=== PATIENT | female | born 1945 | race Hispanic/Latino ===

== ENCOUNTER 2017-09-12 13:53 | Outpatient (RCR) | payer MEDICARE, OTHER ==
[~2017-09-12 13:53] MED LIST: ATORVASTATIN CA20 MG PO; B-122500 MCG; CELEBREX100 MG PO; CITALOPRAM HBR20 MG PO; DICYCLOMINE HCL20 MG PO; DONEPEZIL HCL5 MG PO; GABAPENTIN300 MG PO; NAPROXEN250 MG PO; OMEPRAZOLE20 M1; OMEPRAZOLE40 MG PO; VITAMIN B-121000 MCG PO; VITAMIN D1000 UNI1 PO; VOLTAREN100 GM TOP
== END 2017-09-19 ==
LOC: PT 13:53
PROVIDERS: ATTEND Neurological Surgery
DX: M50.320 Other cervical disc degeneration, mid-cervical region, unspecified level (principal); M62.81 Muscle weakness (generalized); M54.2 Cervicalgia; M53.82 Other specified dorsopathies, cervical region
CPT/HCPCS: 97010 ×3; 97110 ×4; 97140 ×2; 97161; G0283 ×2; G8984; G8985

== ENCOUNTER 2018-10-14 16:58 | Emergency (ER) | payer MEDICARE, OTHER ==
[~2018-10-14] VITALS: Ht 154.9 cm; Wt 72.6 kg
--- OUTSIDE RECORDS SUMMARY | 2018-10-14 17:00 | XMS REPORT | Continuity of Care Document ---
Author Author Yodio Organization Yodio Address Unknown Phone Unavailable Care Team Providers Care Button Maker Name Role Phone [facility] [employer] Unavailable Unavailable Problems No Data Provided for This Section Medications Medication Details Route Status Patient Instructions Ordering Provider Order Date Source Cyanocobalamin (Vitamin B-12) (B-12) 2,500 Mcg Tab.subl, Active 11/30/2015 [facility] Naproxen 250 Mg Tablet, 500 Mg Oral Every 4 Hours Active 11/30/2015 [facility] Omeprazole 20 Mg Tablet., 20 Active 11/30/2015 [facility] Celecoxib (Celebrex*) 100 Mg Capsule, 100 Mg Oral Twice A Day Active 05/27/2015 [facility] Atorvastatin Calcium 20 Mg Tablet Today At 9:00PM Active [facility] Cholecalciferol (Vitamin D3) (Vitamin D) 1,000 Unit Tablet Wkly Active [facility] Citalopram Hydrobromide (Citalopram Hbr) 20 Mg Tablet Daily Active [facility] Cyanocobalamin (Vitamin B-12) 1,000 Mcg Tab Daily Active [facility] Diclofenac Sodium (Voltaren) 100 Gm Gel..gram. As Needed Active THERAPEUTICALLY SUBSTITUTED WITH IBUPROFEN 600MG [facility] Dicyclomine Hcl 20 Mg Tablet Twice A Day Active [facility] Donepezil Hcl 5 Mg Tablet Bedtime Active [facility] Gabapentin 300 Mg Capsule Bedtime Active [facility] Omeprazole 40 Mg Capsule.dr Lord Active [facility] Allergies, Adverse Reactions, Alerts Substance Category Reaction Severity Reaction type Status Date Reported Comments Source Penicillin Unknown Allergy to Substance Active 11/30/2015 [facility] Codeine Unknown Allergy to Substance Active 11/30/2015 [facility] Tramadol Stomach complaints, lightheadedness Mild Allergy to Substance Active 11/30/2015 [facility] Memantine Hallucinations Intermediate Allergy to Substance Active 11/30/2015 [facility] Celecoxib Stomach complaints Mild Allergy to Substance Active 11/30/2015 [facility] Clindamycin Unknown Allergy to Substance Active 09/10/2016 [facility] Dicyclomine Unknown Allergy to Substance Active 09/10/2016 [facility] Immunizations No Data Provided for This Section Results No Data Provided for This Section Pathology Reports No Data Provided for This Section Diagnostic Reports No Data Provided for This Section Consultation Notes No Data Provided for This Section Discharge Summaries No Data Provided for This Section History and Physicals No Data Provided for This Section Vital Signs No Data Provided for This Section Encounters Location Location Details Encounter Type Encounter Number Reason For Visit Attending Provider ADM Date DC Date Status Source Discharged Recurring [id number] NICHOLAS SAHU MD 09/12/2017 09/19/2017 [facility] Procedures No Data Provided for This Section Assessment and Plan No Data Provided for This Section Plan of Care Plan of Care Date Source Prescriptions See Medication Section 09/20/2017 [facility] Social History Social History Date Source No social history information available. 09/20/2017 [facility] Family History No Data Provided for This Section Advance Directives Order Name Results Value Date Source Advance Directives Advance Directives Directive Response Recorded Date/Time Does the patient have an advance directive? No 08/02/08 4:00pm If yes, is advance directive on file with [facility]? No 11/30/15 9:42am If not on file with [facility] will patient provide a copy? No 06/25/16 3:44am Do you have a Directive to Physician? No 08/22/17 11:52am Do you have a Medical Power of Sample Grinder? No 08/22/17 11:52am Do you have an out of hospital Do Not Resuscitate Order? No 08/22/17 11:52am Do you have any special needs we should be aware of? No 08/22/17 11:52am Do you have a support person here with you today? Yes 08/22/17 11:52am Did patient receive Notice of Privacy Practices? No 08/22/17 11:52am Did patient receive patient rights and responsibilities? No 08/22/17 11:52am 09/20/2017 [facility] Functional Status No Data Provided for This Section
--- OUTSIDE RECORDS SUMMARY | 2018-10-14 17:01 | XMS REPORT | Summary of Care ---
Author Author Ashleigh Alves M.A. Unknown Address Unknown Phone Unavailable Care Team Providers Care Agriculture Extension Specialist Name Role Phone HUGO Guzman, APRIL Unavailable Unavailable HUNTER Guzman, SOLANGE ALMARAZ Unavailable Unavailable ARAONYARPITA N.P., EDDIE Unavailable Unavailable HUGO NELSON [place], APRIL Serna Unavailable Unavailable Unavailable Unavailable Functional Status Name Dates Details Functional status health issues are not documented Status: Name Dates Details Cognitive status health issues are not documented Status: Problems Name Dates Details Encounter for Medicare annual wellness exam (V70.0, Z00.00) Status: Active Abnormal antibody titer (795.79, R76.8) Status: Active Advance care planning (V65.49, Z71.89) Status: Active Arthralgia of shoulder region (719.41, M25.519) Status: Active At low risk for fall (V49.89, Z91.81) Status: Active Benign paroxysmal positional vertigo (386.11, H81.10) Status: Active Colon cancer screening (V76.51, Z12.11) Status: Active Degenerative tear of glenoid labrum of left shoulder (840.7, M24.112) Status: Active Diarrhea (787.91, R19.7) Status: Active Enterocolitis (558.9, K52.9) Status: Active Gastroesophageal reflux (530.81, K21.9) Status: Active 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, M15.9) Status: Active Grieving (309.0, F43.20) Status: Active Hematemesis/vomiting blood (578.0, K92.0) Status: Active Hyperlipidemia (272.4, E78.5) Status: Active IBS (irritable bowel syndrome) (564.1, K58.9) Status: Active Insomnia (780.52, G47.00) Status: Active Knee osteoarthritis (715.36, M17.10) Status: Active Left cervical radiculopathy (723.4, M54.12) Status: Active Long-term use of Plaquenil (V58.69, Z79.899) Status: Active Low back pain (724.2, M54.5) Status: Active Lumbar spondylosis (721.3, M47.816) Status: Active Melena (578.1, K92.1) Status: Active Metallic taste (781.1, R43.8) Status: Active Mild cognitive impairment (331.83, G31.84) Status: Active Myalgia (729.1, M79.1) Status: Active Acute pain of left knee (719.46, M25.562) Status: Active History of Caregiver burden (V61.49, Z63.6) Status: Resolved Immune thrombocytopenic purpura (287.31, D69.3) Status: Active Need for influenza vaccination (V04.81, Z23) Status: Active Need for pneumococcal vaccination (V03.82, Z23) Status: Active Nontraumatic tear of supraspinatus tendon, left (727.69, M75.102) Status: Active Osteoarthritis, hip, bilateral (715.95, M16.0) Status: Active Osteopenia (733.90, M85.80) Status: Active Other acute gastritis without hemorrhage (535.00, K29.00) Status: Active Polyarthritis (716.50, M13.0) Status: Active Post menopausal syndrome (627.9, N95.1) Status: Active Screening for breast cancer (V76.10, Z12.31) Status: Active Screening for osteoporosis (V82.81, Z13.820) Status: Active Sicca syndrome (710.2, M35.00) Status: Active Tingling (782.0, R20.2) Status: Active Unclassifiable eczema (692.9, L30.9) Status: Active 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, 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) Status: Active 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, 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: Active Viral syndrome (079.99, B34.9) Status: Active Vitamin D insufficiency (268.9, E55.9) Status: Active BMI 29.0-29.9,adult (V85.25, Z68.29) Status: Active Thrombocytopenia (287.5, D69.6) Status: Active Other pruritus (698.8, L29.8) Status: Active Major depressive disorder, recurrent, moderate (296.32, F33.1) Status: Active Venous insufficiency (459.81, I87.2) Status: Active Nausea and vomiting (787.01, R11.2) Status: Active Abdominal pain (789.00, R10.9) Status: Active Poor memory (780.93, R41.3) Status: Active Medications Name Dates Details Atorvastatin Calcium 20 MG Oral Tablet TAKE 1 TABLET AT BEDTIME. Quantity: 90 APRIL ARIAS M.D. * Start : 13-Jan-2014 Active B-12 2500 MCG Sublingual Tablet Sublingual PLACE 1 MCG TWICE WEEKLY (PER CUSTOMER SERVICE CASHIER) * Refills: 0 Active [place]-3 Fish Oil 1000 MG Oral Capsule TAKE 1 CAPSULE TWICE DAILY * Refills: 0 Active Gabapentin 300 MG Oral Capsule TAKE 2 CAPSULES BY MOUTH AT BEDTIMENEEDS OFFICE VISIT * Quantity: 180 Refills: 1 APRIL ARIAS M.D. * Start : 22-Dec-2014 Active Calcium 1000 + D 1000-800 MG-UNIT Oral Tablet TAKE 1 TABLET DAILY * Refills: 0 * Start : 14-Jul-2015 Active Donepezil HCl - 10 MG Oral Tablet TAKE 1 TABLET DAILY. * Refills: 0 * Start : 28-Oct-2015 Active Diclofenac Sodium 1 % Transdermal Gel Apply sparingly to affected area twice daily as needed for pain. * Quantity: 1 Refills: 2 SOLANGE HARRISON M.D. * Start : 28-Oct-2015 Active 100 GM Tube Omeprazole 40 MG Oral Capsule Delayed Release TAKE 1 CAPSULE Daily 30 min to 1hr before breakfast * Quantity: 30 Refills: 11 EDDIE KATE N.P. * Start : 20-Apr-2016 Active TiZANidine HCl - 2 MG Oral Capsule TAKE ONE CAPSULE BY MOUTH TWICE DAILY NEEDED NEEDED FOR MUSCLE SPASMS * Quantity: 60 Refills: 0 SOLANGE HARRISON M.D. * Start : 13-Mar-2017 Active Citalopram Hydrobromide 20 MG Oral Tablet TAKE 1 TABLET DAILY. * Quantity: 90 Refills: 1 HUGO Guzman APRIL * Start : 16-Jan-2017 Active Allergies and Adverse Reactions Name Dates Details CeleBREX CAPS (Allergy) Status: Active clindamycin (Allergy) Reaction: Diarrhea, Dizziness Status: Active Codeine Sulfate SOLN (Allergy) Status: Active dicyclomine (Allergy) Status: Active Namenda (Allergy) Reaction: Hallucinations Status: Active Penicillins (Allergy) Status: Active TraMADol HCl TABS (Allergy) Reaction: Diarrhea, Constipation, Itching Status: Active Past Medical History Name Dates Details History of Abnormal mammogram (793.80, R92.8) Status: Resolved History of Abnormal mammography (793.80, R92.8) Status: Resolved History of Blood pressure elevated without history of HTN (796.2, R03.0) Status: Resolved History of Chronic Tear Of Left Rotator Cuff Tendon (726.19) Status: Resolved History of hyperlipidemia (V12.29, Z86.39) Status: Resolved History of Major depressive disorder, single episode, mild (296.21, F32.0) Status: Resolved Procedures Procedure Dates Details [QLH] CBC (INCLUDES DIFF/PLT) Date: 29-Mar-2017 History of Open Treatment Of Ankle Dislocation With Fixation Completed Immunization Name Dates Details Tdap on: 31-Aug-2005 Pneumococcal polysaccharide vaccine, 23 valent on: 16-Sep-2010 Influenza Lot #: [id number] on: 28-Jan-2014 Fluzone High-Dose SUSP Lot #: [id number] on: 09-Dec-2014 Prevnar 13 Intramuscular Suspension Lot #: [id number] on: 22-Dec-2014 Fluzone Quadrivalent 0.5 ML Intramuscular Suspension Lot #: [id number] on: 04-Nov-2015 Pneumovax 23 25 MCG/0.5ML Injection Injectable Lot #: [id number] on: 07-Dec-2016 Fluzone Quadrivalent 0.5 ML Intramuscular Suspension Lot #: [id number] on: 07-Dec-2016 Family History Name Dates Details Family history of Hypertension (V17.49) Status: Active Social History Name Dates Details - Status: Name Dates Details Former smoker Never smoker Vital Signs Date Test Result Details [id number] BP Systolic 111 mm[Hg] Status: Comments: Location: [facility] [place]; Position: Sitting BP Diastolic 62 mm[Hg] Status: Comments: Location: LUE; Position: Sitting Height 61 in Status: Weight 157.3125 lb Status: Body Mass Index Calculated 29.72 kg/m2 Status: Body Surface Area Calculated 1.71 m2 Status: Temperature 96.9 f Status: Comments: Method: Temporal Heart Rate 54 /min Status: Comments: Location: L Brachial Artery; Respiration Rate 16 /min Status: Comments: Quality: Normal [id number]-[id number] BP Systolic 128 mm[Hg] Status: Comments: Location: LUE; Position: Sitting BP Diastolic 63 mm[Hg] Status: Comments: Location: LUE; Position: Sitting Height 61 in Status: Weight 157.375 lb Status: Body Mass Index Calculated 29.74 kg/m2 Status: Body Surface Area Calculated 1.71 m2 Status: Temperature 96.3 f Status: Comments: Method: Temporal Heart Rate 64 /min Status: Respiration Rate 16 /min Status: Results Date Description Value Details :20 [QLH] CBC (INCLUDES DIFF/PLT) WBC 5.4 {K/CMM} Range: 3.7-10.4 RBC 4.27 {M/CMM} Range: 4.20-5.40 Hgb 13.0 g/dl Range: 12.0-16.0 Hct 38.9 % Range: 36.0-48.0 MCV 91.0 fL Range: 80.0-98.0 MCH 30.5 pg Range: 27.0-31.0 MCHC 33.5 g/dl Range: 32.0-36.0 RDW 13.9 % Range: 11.5-14.5 Platelet 101 {K/CMM} (Below low threshold) Range: 133-450 Mean Platelet Volume 10.7 fL (Above high threshold) Range: 7.4-10.4 [id number] [QLH] Differential Segmented Neutrophils 54.8 % Range: 45.0-75.0 Monocytes 8.5 % Range: 2.0-12.0 Lymphocytes 33.6 % Range: 20.0-40.0 Eosinophils 1.8 % Range: 0.0-4.0 Basophils 1.3 % (Above high threshold) Range: 0.0-1.0 Segs-Bands # 2.9 {K/CMM} Range: 1.5-8.1 Lymphocytes # 1.8 {K/CMM} Range: 1.0-5.5 Monocytes # 0.5 {K/CMM} Range: 0.0-0.8 Eosinophils # 0.1 {K/CMM} Range: 0.0-0.5 Basophils # 0.1 {K/CMM} Range: 0.0-0.2 Plan of Care Name Dates Details Planned Observations Planned Goals not documented Planned Encounters Appointment; SOLANGE HARRISON M.D. On: 24-Jul-2017 15:00 Appointment; DONTE SINGH M.D. On: 25-Jul-2017 13:30 Interventions Provided Plan* Hold donepazil for 2 weeks and keep a symptom diary. * Resume donepazil after that, and continue symptom diary. * If this is determined to be contributing to her abdominal pain and nausea, she will discuss with neurologist Dr. Bishop if she has other options to help with her memory. * Follow up in 1 month. * Schedule AWV for May 2017. Instructions Name Dates Details Instructions not documented Encounters Appointment; APRIL ARIAS M.D. Encounter Diagnosis: Problem not documented On: 26-May-2015 8:30 Appointment; APRIL ARAIS M.D. Encounter Diagnosis: Problem not documented On: 18-Jun-2015 9:00 Appointment; SUNSHINE HANNA NP Encounter Diagnosis: Problem not documented On: 23-Jun-2015 11:30 Appointment; DONTE SINGH M.D. Encounter Diagnosis: Problem not documented On: 23-Jun-2015 15:30 Appointment; LAWRENCE DANIELSON M.D. Encounter Diagnosis: Problem not documented On: 14-Jul-2015 14:00 Appointment; DONTE SINGH M.D. Encounter Diagnosis: Problem not documented On: 23-Sep-2015 11:45 Appointment; MOLLY BARRON NP Encounter Diagnosis: Problem not documented On: 29-Sep-2015 11:00 Appointment; DONTE SINGH M.D. Encounter Diagnosis: Problem not documented On: 08-Oct-2015 13:45 Appointment; APRIL ARIAS M.D. Encounter Diagnosis: Problem not documented On: 14-Oct-2015 8:30 Appointment; LAWRENCE DANIELSON M.D. Encounter Diagnosis: Problem not documented On: 27-Oct-2015 13:30 Appointment; SOLANGE HARRISON M.D. Encounter Diagnosis: Problem not documented On: 28-Oct-2015 16:00 Appointment; APRIL ARIAS M.D. Encounter Diagnosis: Problem not documented On: 04-Nov-2015 9:15 Appointment; DONTE SINGH M.D. Encounter Diagnosis: Problem not documented On: 09-Nov-2015 13:45 Appointment; DONTE SINGH M.D. Encounter Diagnosis: Problem not documented On: 01-Dec-2015 13:45 Appointment; APRIL ARIAS M.D. Encounter Diagnosis: Problem not documented On: 08-Dec-2015 10:00 Appointment; DONTE SINGH M.D. Encounter Diagnosis: Problem not documented On: 21-Dec-2015 10:15 Appointment; KERRI CASTILLO M.D. Encounter Diagnosis: Problem not documented On: 23-Dec-2015 13:00 Appointment; DONTE SINGH M.D. Encounter Diagnosis: Problem not documented On: 18-Jan-2016 11:15 Appointment; SOLANGE HARRISON M.D. Encounter Diagnosis: Problem not documented On: 02-Mar-2016 15:00 Appointment; DONTE SINGH M.D. Encounter Diagnosis: Problem not documented On: 20-Apr-2016 10:15 Appointment; APRIL ARIAS M.D. Encounter Diagnosis: Problem not documented On: 24-May-2016 11:00 Appointment; VIRGIL POE M.D. Encounter Diagnosis: Problem not documented On: 14-Jun-2016 9:00 Appointment; SOLANGE HARRISON M.D. Encounter Diagnosis: Problem not documented On: 30-Jun-2016 14:00 Appointment; [facility] Encounter Diagnosis: Problem not documented On: 14-Jul-2016 9:00 Appointment; VIRGIL POE M.D. Encounter Diagnosis: Problem not documented On: 26-Jul-2016 9:00 Appointment; DONTE SINGH M.D. Encounter Diagnosis: Problem not documented On: 27-Jul-2016 10:15 Appointment; VASCULAR, [facility] Encounter Diagnosis: Problem not documented On: 20-Sep-2016 8:00 Appointment; VIRGIL POE M.D. Encounter Diagnosis: Problem not documented On: 20-Sep-2016 9:00 Appointment; VASCULAR, [facility] Encounter Diagnosis: Problem not documented On: 23-Sep-2016 10:30 Appointment; SOLANGE HARRISON M.D. Encounter Diagnosis: Problem not documented On: 28-Sep-2016 14:30 Appointment; VASCULAR, [facility] Encounter Diagnosis: Problem not documented On: 11-Oct-2016 9:00 Appointment; VIRGIL POE M.D. Encounter Diagnosis: Problem not documented On: 11-Oct-2016 9:15 Appointment; DONTE SINGH M.D. Encounter Diagnosis: Problem not documented On: 07-Nov-2016 11:45 Appointment; DONTE SINGH M.D. Encounter Diagnosis: Problem not documented On: 07-Nov-2016 11:45 Appointment; VASCULAR, [facility] Encounter Diagnosis: Problem not documented On: 16-Nov-2016 9:00 Appointment; VIRGIL POE M.D. Encounter Diagnosis: Problem not documented On: 06-Dec-2016 10:45 Appointment; APRIL ARIAS M.D. Encounter Diagnosis: Problem not documented On: 07-Dec-2016 11:45 Appointment; SOLANGE HARRISON M.D. Encounter Diagnosis: Problem not documented On: 27-Dec-2016 14:30 Appointment; APRIL ARIAS M.D. Encounter Diagnosis: Problem not documented On: 16-Jan-2017 15:30 Appointment; HAYLEE YIN LCSW Encounter Diagnosis: Problem not documented On: 23-Jan-2017 13:00 Appointment; APRIL ARIAS M.D. Encounter Diagnosis: Problem not documented On: 06-Feb-2017 15:00 Appointment; SOLANGE HARRISON M.D. Encounter Diagnosis: Problem not documented On: 27-Mar-2017 15:00 Appointment; SOBEIDA CHEUNG P.A. Encounter Diagnosis: Problem not documented On: 19-Apr-2017 10:30 Appointment; APRIL ARIAS M.D. Encounter Diagnosis: Problem not documented On: 08-May-2017 14:15
--- OUTSIDE RECORDS SUMMARY | 2018-10-14 17:01 | XMS REPORT ---
Author [facility] Address Unknown Phone Unavailable Care Team Providers Care Senior Relationship Manager Name Role Phone Unavailable Unavailable Payers Payer Name Policy Type Policy Number Effective Date Expiration Date Problems This patient has no known problems. Allergies, Adverse Reactions, Alerts Allergy Name Allergy Type Status Severity Reaction(s) Onset Date Inactive Date Treating Clinician Comments Penicillins DA Active U 2018-06-10 00:00:00 codeine DA Active U 2018-06-10 00:00:00 clindamycin DA Active U 2018-06-10 00:00:00 omeprazole DA Active U 2018-06-10 00:00:00 tramadol DA Active U 2018-06-10 00:00:00 dicyclomine DA Active U 2018-06-10 00:00:00 memantine DA Active U 2018-06-10 00:00:00 celecoxib DA Active U 2018-06-10 00:00:00 Penicillins DA Active U 2018-06-09 00:00:00 codeine DA Active U 2018-06-09 00:00:00 clindamycin DA Active U 2018-06-09 00:00:00 omeprazole DA Active U 2018-06-09 00:00:00 tramadol DA Active U 2018-06-09 00:00:00 dicyclomine DA Active U 2018-06-09 00:00:00 memantine DA Active U 2018-06-09 00:00:00 celecoxib DA Active U 2018-06-09 00:00:00 Penicillins DA Active U 2017-07-20 00:00:00 codeine DA Active U 2017-07-20 00:00:00 clindamycin DA Active U 2017-07-20 00:00:00 omeprazole DA Active U 2017-07-20 00:00:00 tramadol DA Active U 2017-07-20 00:00:00 dicyclomine DA Active U 2017-07-20 00:00:00 memantine DA Active U 2017-07-20 00:00:00 celecoxib DA Active U 2017-07-20 00:00:00 Medications This patient has no known medications. Encounters Start Date/Time End Date/Time Encounter Type Admission Type Attending [facility] Facility Care Department Encounter ID 2018-08-31 09:40:00 2018-08-31 09:40:00 Outpatient [id number] Results Test Description Test Time Test Comments Text Results Atomic Results Result Comments TROPONIN-I 2018-06-10 12:09:00 TROPONIN-I (test code=TROPI) <0.015 ng/mL 0-0.045 COMMENTS TO CURVE SAW OPERATOR: COLLECT 3 HOURS AFTER PREVIOUS [id number] 02:24:00* Test Item Value Reference Range Comments TROPONIN-I (test code=TROPI) <0.015 ng/mL 0-0.045 COMMENTS TO CURVE SAW OPERATOR: COLLECT 3 HOURS AFTER PREVIOUS SAMPLEBASIC METABOLIC [id number] 22:02:00* Test Item Value Reference Range Comments SODIUM (test code=NA) 142 mmol/L 136-145 POTASSIUM (test code=K) 3.4 mmol/L 3.5-5.1 CHLORIDE (test code=CL) 107.0 mmol/L 98-107 CARBON DIOXIDE (test code=CO2) 27.0 mmol/L 21-32 ANION GAP (test code=GAP) 11.4 10-20 GLUCOSE (test code=GLU) 99 mg/dL 74-106 BLOOD UREA NITROGEN (test code=BUN) 15 mg/dL 7-18 GLOMERULAR FILTRATION RATE (test code=GFR) > 60 mL/min >=60 Estimated GFR by using Modified MDRD formula.Chronic kidney disease is defined as either kidney damageor GFR <60 mL/min/1.73 m2 for >3 months. CREATININE (test code=CREAT) 0.70 mg/dL 0.55-1.02 Note change in reference range due to change in reagent. BUN/CREATININE RATIO (test code=BUN/CREA) 21.4 10-20 CALCIUM (test code=CA) 9.4 mg/dL 8.5-10.1 [id number] 22:02:00* Test Item Value Reference Range Comments TROPONIN-I (test code=TROPI) <0.015 ng/mL 0-0.045 CBC W/O [id number] 21:47:00* Test Item Value Reference Range Comments WHITE BLOOD CELL (test code=WBC) 6.8 K/mm3 4.5-12.5 RED BLOOD CELL (test code=RBC) 4.30 mill/mm3 3.7-5.2 HEMOGLOBIN (test code=HGB) 12.5 gram/dL 11.5-15.5 HEMATOCRIT (test code=HCT) 41.0 % 36.0-46.0 MEAN CELL VOLUME (test code=MCV) 95.3 fL 80-98 MEAN CELL HGB (test code=MCH) 29.1 picogram 27.0-33.0 MEAN CELL HGB CONCETRATION (test code=MCHC) 30.5 gram/dL 33.0-36.0 RED CELL DISTRIBUTION WIDTH (test code=RDW) 13.3 % 11.6-16.2 PLATELET COUNT (test code=PLT) 132 K/mm3 150-450 MEAN PLATELET VOLUME (test code=MPV) 12.1 fL 6.7-11.0 BASIC METABOLIC [id number] 21:44:00* Test Item Value Reference Range Comments SODIUM (test code=NA) 142 mmol/L 136-145 POTASSIUM (test code=K) 3.4 mmol/L 3.5-5.1 CHLORIDE (test code=CL) 107.0 mmol/L 98-107 CARBON DIOXIDE (test code=CO2) mmol/L 21-32 ANION GAP (test code=GAP) 10-20 GLUCOSE (test code=GLU) mg/dL 74-106 BLOOD UREA NITROGEN (test code=BUN) mg/dL 7-18 GLOMERULAR FILTRATION RATE (test code=GFR) mL/min >=60 CREATININE (test code=CREAT) mg/dL 0.55-1.02 BUN/CREATININE RATIO (test code=BUN/CREA) 10-20 CALCIUM (test code=CA) mg/dL 8.5-10.1 [id number] 21:44:00* Test Item Value Reference Range Comments TROPONIN-I (test code=TROPI) ng/mL 0-0.045 CBC W/O [id number] 21:41:00* Test Item Value Reference Range Comments WHITE BLOOD CELL (test code=WBC) K/mm3 4.5-12.5 RED BLOOD CELL (test code=RBC) mill/mm3 3.7-5.2 HEMOGLOBIN (test code=HGB) 12.5 gram/dL 11.5-15.5 HEMATOCRIT (test code=HCT) 41.0 % 36.0-46.0 MEAN CELL VOLUME (test code=MCV) fL 80-98 MEAN CELL HGB (test code=MCH) picogram 27.0-33.0 MEAN CELL HGB CONCETRATION (test code=MCHC) gram/dL 33.0-36.0 RED CELL DISTRIBUTION WIDTH (test code=RDW) % 11.6-16.2 PLATELET COUNT (test code=PLT) K/mm3 150-450 MEAN PLATELET VOLUME (test code=MPV) fL 6.7-11.0 - CT HEAD/BRAIN W/O [id number] 21:41:00 Name: HOSSEINSKY G [facility] : 1945 Age/S: 72 / F [address] [facility] Unit #: [id number] [place] [address] Phys: Saroj Casas MD Acct: [id number] Dis Date: Status: REG ER PHONE #: [phone] Exam Date: 06/09/2018 2130 FAX #: [phone] Reason: L arm numb, h/o ICH EXAMS: CPT CODE: [id number] CT HEAD/BRAIN W/O CONT 08982 HISTORY: Left arm numbness and prior hemorrhage. COMPARISON: July 20, 2017. CT brain without contrast: Automated exposure control. No acute intracranial bleeds or extra- axial collections are noted. No acute territorial vascular infarction is noted. 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 The sulci, gyri, ventricles and subarachnoid spaces and the basilar cisterns are normal for patient's age. No herniation or hydrocephalus or midline shift is noted. Mild periventricular ischemic gliosis is noted. Age-appropriate atrophy is no mj as well. Portions of the visualized paranasal sinuses are norm al. Craniotomy and craniectomy defect within the right frontal bon e.. IMPRESSION: No acute intracranial bleeds o r extra-axial collections. No acute territorial vascular infar ction. 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 No herniation or hydrocephalus or midline shift. Chronic white matter ischemic disease and atrophy . at 2141 Reported and signed by: Joe Coffey M.D. CC: Saroj Casas MD Technologist:Rodrick Dorsey RT(R)(CT) CTDI: DLP: Trnscb Date/Time: 06/09/2018 (2140) [email or web address] Orig Print D/T: S: 06/09/2018 (2144) C TDI: DLP: PAGE 1 Signed Report - XR CHEST 1 [id number] 21:33:00 FAX: Saroj Casas MD [phone] [place]: B St: REG Name: Mary DUKESKY [facility] : [birth year] Age/S: 72/F [address] [facility] Unit #: [id number] Loc: [place] [address] Phys: Saroj Casas MD Acct: [id number] Dis Date: Status: REG ER PHONE #: [phone] Exam Date: 06/09/20182127 FAX #: [phone] Reason: CHEST PAIN EXAMS: CPT CODE: [id number] XR CHEST 1 V 67546 HISTORY: Chest pain. COMPARISON: None available. No acute infiltrates, effusion or con gestion is noted. Bullous changes and scarring. The cardiac and mediastinal silhouette are within normal limits. IMPRESSIO N: No acute infiltrates, effusion or congestion. at 2133 Reported and signed by: Thomas Palma C: Saroj Casas MD Technologist: Josee Hurtado Trnscrd Date/Time/By: 06/09/2018 (2132) : By: [email or web address] Orig Print D/T: S: 06/09/2018 (2135) PAGE 1 Signed Report BASIC METABOLIC [id number] 15:07:00* Test Item Value Reference Range Comments SODIUM (test code=NA) 141 mmol/L 136-145 POTASSIUM (test code=K) 4.2 mmol/L 3.5-5.1 CHLORIDE (test code=CL) 106.0 mmol/L 98-107 CARBON DIOXIDE (test code=CO2) 28.0 mmol/L 21-32 ANION GAP (test code=GAP) 11.2 10-20 GLUCOSE (test code=GLU) 90 mg/dL 74-106 BLOOD UREA NITROGEN (test code=BUN) 9 mg/dL 7-18 GLOMERULAR FILTRATION RATE (test code=GFR) > 60 mL/min >=60 Estimated GFR by using Modified MDRD formula.Chronic kidney disease is defined as either kidney damageor GFR <60 mL/min/1.73 m2 for >3 months. CREATININE (test code=CREAT) 0.40 mg/dL 0.55-1.02 Note change in reference range due to change in reagent. BUN/CREATININE RATIO (test code=BUN/CREA) 20.0 10-20 CALCIUM (test code=CA) 9.0 mg/dL 8.5-10.1 HEPATIC FUNCTION [id number] 15:07:00* Test Item Value Reference Range Comments TOTAL PROTEIN (test code=PROT) 7.5 gram/dL 6.4-8.2 ALBUMIN (test code=ALB) 3.9 g/dL 3.4-5.0 GLOBULIN (test code=GLOB) 3.6 gram/dL 2.7-4.2 ALBUMIN/GLOBULIN RATIO (test code=A/G) 1.1 0.75-1.50 BILIRUBIN TOTAL (test code=BILT) 0.40 mg/dL 0.0-1.0 BILIRUBIN DIRECT (test code=BILD) 0.10 mg/dL 0.0-0.20 SGOT/AST (test code=AST) 18 IUnit/L 15-37 SGPT/ALT (test code=ALT) 14 IUnit/L 12-78 ALKALINE PHOSPHATASE TOTAL (test code=ALKP) 81 IUnit/L 45-117 Note change in reference range due to change in reagent. [id number] 15:07:00* Test Item Value Reference Range Comments LIPASE (test code=LIP) 133 U/L 73.0-393.0 [id number] 15:07:00* Test Item Value Reference Range Comments TROPONIN-I (test code=TROPI) <0.015 ng/mL 0-0.045 CBC W/O [id number] 15:04:00* Test Item Value Reference Range Comments WHITE BLOOD CELL (test code=WBC) 5.0 K/mm3 4.5-12.5 RED BLOOD CELL (test code=RBC) 4.47 mill/mm3 3.7-5.2 HEMOGLOBIN (test code=HGB) 13.3 gram/dL 11.5-15.5 HEMATOCRIT (test code=HCT) 41.6 % 36.0-46.0 MEAN CELL VOLUME (test code=MCV) 93.1 fL 80-98 MEAN CELL HGB (test code=MCH) 29.8 picogram 27.0-33.0 MEAN CELL HGB CONCETRATION (test code=MCHC) 32.0 gram/dL 33.0-36.0 RED CELL DISTRIBUTION WIDTH (test code=RDW) 13.3 % 11.6-16.2 PLATELET COUNT (test code=PLT) 115 K/mm3 150-450 MEAN PLATELET VOLUME (test code=MPV) 12.5 fL 6.7-11.0 BASIC METABOLIC [id number] 14:53:00* Test Item Value Reference Range Comments SODIUM (test code=NA) 141 mmol/L 136-145 POTASSIUM (test code=K) 4.2 mmol/L 3.5-5.1 CHLORIDE (test code=CL) 106.0 mmol/L 98-107 CARBON DIOXIDE (test code=CO2) mmol/L 21-32 ANION GAP (test code=GAP) 10-20 GLUCOSE (test code=GLU) mg/dL 74-106 BLOOD UREA NITROGEN (test code=BUN) mg/dL 7-18 GLOMERULAR FILTRATION RATE (test code=GFR) mL/min >=60 CREATININE (test code=CREAT) mg/dL 0.55-1.02 BUN/CREATININE RATIO (test code=BUN/CREA) 10-20 CALCIUM (test code=CA) mg/dL 8.5-10.1 HEPATIC FUNCTION [id number] 14:53:00* Test Item Value Reference Range Comments TOTAL PROTEIN (test code=PROT) gram/dL 6.4-8.2 ALBUMIN (test code=ALB) g/dL 3.4-5.0 GLOBULIN (test code=GLOB) gram/dL 2.7-4.2 ALBUMIN/GLOBULIN RATIO (test code=A/G) 0.75-1.50 BILIRUBIN TOTAL (test code=BILT) mg/dL 0.0-1.0 BILIRUBIN DIRECT (test code=BILD) mg/dL 0.0-0.20 SGOT/AST (test code=AST) IUnit/L 15-37 SGPT/ALT (test code=ALT) IUnit/L 12-78 ALKALINE PHOSPHATASE TOTAL (test code=ALKP) IUnit/L 45-117 [id number] 14:53:00* Test Item Value Reference Range Comments LIPASE (test code=LIP) U/L 73.0-393.0 [id number] 14:53:00* Test Item Value Reference Range Comments TROPONIN-I (test code=TROPI) ng/mL 0-0.045 URINALYSIS [id number] 14:25:00* Test Item Value Reference Range Comments UA COLOR (test code=COLU) YELLOW YELLOW UA APPEARANCE (test code=APPU) CLEAR CLEAR UA GLUCOSE DIPSTICK (test code=DGLUU) NEGATIVE mg/dL NEGATIVE UA BILIRUBIN DIPSTICK (test code=BILU) NEGATIVE mg/dL NEGATIVE UA KETONE DIPSTICK (test code=KETU) Negative mg/dL NEGATIVE UA SPECIFIC GRAVITY (test code=SGU) 1.020 1.001-1.035 UA BLOOD DIPSTICK (test code=DANIELLE) 1+ (Small) NEGATIVE UA PH DIPSTICK (test code=LIZ) 5.0 5.0-8.0 UA PROTEIN DIPSTICK (test code=PROU) Negative mg/dL NEGATIVE UA UROBILINIOGEN DIPSTICK (test code=URO) NEGATIVE mg/dL NEGATIVE UA NITRITE DIPSTICK (test code=HELENE) NEGATIVE NEGATIVE UA LEUKOCYTE ESTERASE W REFLEX (test code=LEUUR) TRACE NEGATIVE UA WBC (test code=WBCU) 0-5 #/HPF 0-5 UA RBC (test code=RBCU) 0-2 #/HPF 0-5 UA EPITHELIAL CELLS (test code=EPIU) FEW per HPF FEW UA HYALINE CAST (test code=HYALU) 0-2 #/LPF 0-5 UA MUCUS (test code=MUCU) FEW #/LPF FEW Urine Source? Clean CatchURINALYSIS [id number] 14:24:00* Test Item Value Reference Range Comments UA COLOR (test code=COLU) YELLOW YELLOW UA APPEARANCE (test code=APPU) CLEAR CLEAR UA GLUCOSE DIPSTICK (test code=DGLUU) NEGATIVE mg/dL NEGATIVE UA BILIRUBIN DIPSTICK (test code=BILU) NEGATIVE mg/dL NEGATIVE UA KETONE DIPSTICK (test code=KETU) Negative mg/dL NEGATIVE UA SPECIFIC GRAVITY (test code=SGU) 1.020 1.001-1.035 UA BLOOD DIPSTICK (test code=DANIELLE) 1+ (Small) NEGATIVE UA PH DIPSTICK (test code=LIZ) 5.0 5.0-8.0 UA PROTEIN DIPSTICK (test code=PROU) Negative mg/dL NEGATIVE UA UROBILINIOGEN DIPSTICK (test code=URO) NEGATIVE mg/dL NEGATIVE UA NITRITE DIPSTICK (test code=HELENE) NEGATIVE NEGATIVE UA LEUKOCYTE ESTERASE W REFLEX (test code=LEUUR) TRACE NEGATIVE UA WBC (test code=WBCU) 0-5 #/HPF 0-5 UA RBC (test code=RBCU) 0-2 #/HPF 0-5 UA EPITHELIAL CELLS (test code=EPIU) FEW per HPF FEW Urine Source? Clean CatchURINALYSIS [id number] 14:23:00* Test Item Value Reference Range Comments UA COLOR (test code=COLU) YELLOW YELLOW UA APPEARANCE (test code=APPU) CLEAR CLEAR UA GLUCOSE DIPSTICK (test code=DGLUU) NEGATIVE mg/dL NEGATIVE UA BILIRUBIN DIPSTICK (test code=BILU) NEGATIVE mg/dL NEGATIVE UA KETONE DIPSTICK (test code=KETU) Negative mg/dL NEGATIVE UA SPECIFIC GRAVITY (test code=SGU) 1.020 1.001-1.035 UA BLOOD DIPSTICK (test code=DANIELLE) 1+ (Small) NEGATIVE UA PH DIPSTICK (test code=LIZ) 5.0 5.0-8.0 UA PROTEIN DIPSTICK (test code=PROU) Negative mg/dL NEGATIVE UA UROBILINIOGEN DIPSTICK (test code=URO) NEGATIVE mg/dL NEGATIVE UA NITRITE DIPSTICK (test code=HELENE) NEGATIVE NEGATIVE UA LEUKOCYTE ESTERASE W REFLEX (test code=LEUUR) TRACE NEGATIVE UA WBC (test code=WBCU) per HPF 0-5 Urine Source? Clean Catch
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
== END 2018-10-14 18:40 | disposition home or self-care (01) ==
LOC: ER 16:58
DX: S16.1XXA Strain of muscle, fascia and tendon at neck level, initial encounter (principal); V49.59XA Passenger injured in collision with other motor vehicles in traffic accident, initial encounter; Y92.410 Unspecified street and highway as the place of occurrence of the external cause; M48.02 Spinal stenosis, cervical region; M51.34 Other intervertebral disc degeneration, thoracic region; R91.1 Solitary pulmonary nodule
CPT/HCPCS: 71046; 72125; 99283

== ENCOUNTER → 2019-03-27 | Outpatient (CLI) | payer MEDICARE ==
[~2019-03-27] MED LIST changes: +IOPAMIDOL 370 MG/ML 200 ML INFUS..BTL INJ ONE; +SODIUM CHLORIDE 0.9% 250ML 250 ML ONE
[2019-03-27 08:25] LABS: BLOOD UREA NITROGEN 5 mg/dL (7-26); BUN/CREATININE RATIO 11 (6-25); CREATININE, SERUM 0.44 mg/dL (0.57-1.11); EST GLOMERULAR FILTRATION RATE > 60 ML/MIN (60-)
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
== END ==
LOC: CT 07:04
PROVIDERS: ATTEND Urology
DX: R31.21 Asymptomatic microscopic hematuria (principal)
CPT/HCPCS: 36415; 74178; 82565; 84520; J7050; Q9967

== ENCOUNTER 2019-08-08 14:14 | Emergency (ER) | payer MEDICARE ==
[~2019-08-08] VITALS: Ht 154.9 cm; Wt 72.6 kg
[~2019-08-08 14:14] MED LIST changes: -IOPAMIDOL 370 MG/ML 200 ML INFUS..BTL INJ ONE; -SODIUM CHLORIDE 0.9% 250ML 250 ML ONE
--- NOTE | 2019-08-08 15:19 | Diagnostic Imaging Report ---
EXAMINATION: C SPINE 4-5 VIEW - HOPD INDICATION: Neck pain, left-sided numbness COMPARISON: None FINDINGS: No acute fracture. Alignment is anatomic. Vertebral body heights are maintained. Mild multilevel degenerative changes of the cervical spine with small osteophyte formation. Prevertebral soft tissues are normal in thickness. IMPRESSION: Minimal degenerative changes of the cervical spine. No acute injury. Signed by: Chelsea Romeo MD on 08/08/2019 3:16 PM
--- NOTE | 2019-08-08 15:20 | Diagnostic Imaging Report ---
CT BRAIN -[facility] HISTORY: Numbness from wrist COMPARISON: Report from head CT dated 05/27/2015 TECHNIQUE: Noncontrast axial scans were obtained from skull base to the vertex. Coronal and sagittal reconstructions obtained from the axial data. One or more of the following dose reduction techniques were used: Automated exposure control, adjustment of the mA and/or kV according to patient size, and/or utilization of iterative reconstruction technique. DISCUSSION: Scalp/Skull: Right pterional craniotomy changes are present. Right frontal patricia hole is also present. Brain sulci: Overall appropriate for patient's age. Ventricles: Normal in size and configuration. No hydrocephalus. 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 Associated streak artifacts obscure some details. Otherwise, no masses or fluid collections. Carotid siphon calcifications are present. Parenchyma: Focal encephalomalacia in the right superior frontal gyrus may be from remote infarct. Mild periventricular white matter hypodensities are likely chronic microvascular ischemic changes. Otherwise, no mass, hemorrhage, or large vascular territory acute infarct. Dural sinuses: No abnormal densities. Sellar/Suprasellar region: Otherwise, grossly unremarkable. Skull base: Intact. Incidental findings: Bilateral ocular lens replacement. IMPRESSION: 1. No acute intracranial abnormalities. 2. 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 3. Focal right superior frontal gyrus encephalomalacia may be from remote infarct or prior catheter tract. 4. Mild supratentorial chronic microvascular ischemic change. Signed by: Dr. Dmitri Nath M.D. on 08/08/2019 3:17 PM
--- NOTE | 2019-08-08 16:14 | Emergency Department Note ---
History of Present Illnes History of Present Illness Chief Complaint: Extremity Trauma/Pain History of Present Illness This is a 73 year old female c cc numbness left arm and neck pain, H/O brain aneurysm bleed . Historian: Patient Arrival Mode: Car Onset (how long ago): day(s) (3) Location: left arm Quality: numbness Radiation: Denies non-radiation, Denies back, Denies neck, Denies extremity, Denies abdomen, Denies periumbilical, Denies flank, Denies proximal, Denies distal, Denies other Severity: moderate Duration (how long): day(s) (2) Timing of current episode: constant Progression: waxing and waning Chronicity: new Context: Denies recent illness, Denies recent surgery, Denies recent immobilization, Denies recent travel, Denies trauma/injury, Denies new medications, Denies hx of DVT/PE, Denies non-compliance w/ medications, Denies other Relieving factors: none Exacerbating factors: none Associated symptoms: Reports denies other symptoms Treatments prior to arrival: none Past Medical/Family History Physician Review I have reviewed the patient's past medical and family history. Any updates have been documented here. Past Medical History Recent Fever: No Clinical Suspicion of Infectio: No New/Unexplained Change in Ment: No Past Medical History: TIA, GERD, Hyperlipedemia Other Medical History: Idiopathic Thrombocytopenic Purpura LOW PLATELET COUNT ARTHRITIS BRAIN ANEYURYSM Other Surgery: EGD & Colonoscopy BRAIN ANYEURYSM SURGERY RIGHT LEG SX DUE TO FRACTURE Social History Smoking Cessation: Never Smoker Counseling Performed: No Alcohol Use: None Any Illegal Drug Use: No TB Exposure/Symptoms: No Physically hurt or threatened: No Other Last Tetanus: Unknown Any Pre-Existing Lines (PICC,: No Is patient up to date on immun: Yes Last Flu: 2019 Last Pneumovax: 2019 Review of Systems Review of Systems Constitutional: Reports no symptoms EENTM: Reports no symptoms Cardiovascular: Reports no symptoms Respiratory: Reports no symptoms Gastrointestinal: Reports no symptoms Genitourinary: Reports no symptoms Musculoskeletal: Reports as per HPI Integumentary: Reports no symptoms Neurological: Reports no symptoms Psychological: Reports no symptoms Endocrine: Reports no symptoms Hematological/Lymphatic: Reports no symptoms Physical Exam Related Data Allergies: Coded Allergies: memantine (Verified Allergy, Intermediate, Hallucinations, 11/30/15) celecoxib (Verified Allergy, Mild, Stomach complaints, 11/30/15) tramadol (Verified Allergy, Mild, Stomach complaints, lightheadedness, 11/30/15) Penicillins (Verified Allergy, Unknown, 11/30/15) clindamycin (Verified Allergy, Unknown, 09/10/16) codeine (Verified Allergy, Unknown, 11/30/15) dicyclomine (Verified Allergy, Unknown, 09/10/16) Triage Vital Signs Vital Signs Date Time Temp Pulse Resp B/P (MAP) Pulse Ox O2 Delivery O2 Flow Rate FiO2 08/08/19 14:20 98.2 74 18 170/56 99 Vital signs reviewed: Yes Physical Exam CONSTITUTIONAL Constitutional: Present well-developed, Present well-nourished HENT HENT: Present normocephalic, Present atraumatic, Present oropharynx clear/moist, Present nose normal HENT L/R: Present left ext ear normal, Present right ext ear normal EYES Eyes: Reports PERRL, Reports conjunctivae normal NECK Neck: Present other (tenderness) PULMONARY Pulmonary: Present effort normal, Present breath sounds normal CARDIOVASCULAR Cardiovascular: Present regular rhythm, Present heart sounds normal, Present capillary refill normal, Present normal rate GASTROINTESTINAL Abdominal: Present soft, Present nontender, Present bowel sounds normal GENITOURINARY Genitourinary: Present exam deferred SKIN Skin: Present warm, Present dry MUSCULOSKELETAL Musculoskeletal: Present ROM normal NEUROLOGICAL Neurological: Present alert, Present oriented x 3, Present no gross motor or sensory deficits PSYCHOLOGICAL Psychological: Present mood/affect normal, Present judgement normal Results Imaging Imaging results reviewed: Yes Assessment & Plan Medical Decision Making MDM radiculopathy, neuropathy Reassessment Reassessment time: 16:13 Reassessment better Assessment & Plan Final Impression: (1) Radiculopathy, cervical region (2) Left arm numbness Depart Disposition: HOME, SELF-CARE Last Vital Signs Date Time Temp Pulse Resp B/P (MAP) Pulse Ox O2 Delivery O2 Flow Rate FiO2 08/08/19 14:20 98.2 74 18 170/56 99 Home Meds Reported Medications Cyanocobalamin (VITAMIN B-12) 1,000 Mcg Tab, 5000 MCG PO DAILY, #30 TAB 11/30/15 Donepezil Hcl (DONEPEZIL HCL) 5 Mg Tablet, 5 MG PO HS 11/30/15 Citalopram Hydrobromide (CITALOPRAM HBR) 20 Mg Tablet, 20 MG PO DAILY, TAB 11/30/15 Cholecalciferol (Vitamin D3) (VITAMIN D) 1,000 Unit Tablet, 36586 UNIT PO WKLY, #30 TAB 11/30/15 Dicyclomine Hcl (DICYCLOMINE HCL) 20 Mg Tablet, 20 MG PO BID, TAB 11/30/15 Diclofenac Sodium (VOLTAREN) 100 Gm Gel..gram., 1 UDPKT TOP PRN THERAPEUTICALLY SUBSTITUTED WITH IBUPROFEN 600MG 11/30/15 Omeprazole (OMEPRAZOLE) 40 Mg Capsule.dr, 40 MG PO DAILY 11/30/15 Atorvastatin Calcium (ATORVASTATIN CALCIUM) 20 Mg Tablet, 20 MG PO 2100, TAB 06/23/14 Gabapentin (GABAPENTIN) 300 Mg Capsule, 600 MG PO HS, #60 CAP 06/23/14 BAY ALSTON MD Aug 08, 2019 16:14
[2019-08-08] MEDS ORDERED: PREDNISONE20 MG PO (16:15)
== END 2019-08-08 16:55 | disposition home or self-care (01) ==
LOC: FSED 14:14
DX: R20.0 Anesthesia of skin (principal); M54.12 Radiculopathy, cervical region; D69.3 Immune thrombocytopenic purpura; E78.5 Hyperlipidemia, unspecified; K21.9 Gastro-esophageal reflux disease without esophagitis; Z86.73 Personal history of transient ischemic attack (TIA), and cerebral infarction without residual deficits
CPT/HCPCS: 70450; 72050; 99283

== ENCOUNTER 2020-01-24 15:16 | Observation (INO) | payer MEDICARE ==
[~2020-01-24] VITALS: Ht 152.4 cm; Wt 72.6 kg
[~2020-01-24 15:16] MED LIST changes: +PREDNISONE20 MG PO
--- NOTE | 2020-01-24 15:52 | Emergency Department Note ---
History of Present Illnes History of Present Illness Chief Complaint: Abdominal Complaints History of Present Illness This is a 74 year old female, with a history of hyperlipidemia, GERD, osteoarthritis, and brain aneurysm who presents for evaluation of epigastric pain radiating into the chest that started one half hours prior to arrival. Patient states that the pain was a tightness, and a 10 out of 10 in intensity. The pain did not radiate beyond her mid chest, and worsened with deep breathing. Patient had some associated nausea, but no vomiting, palpitations, dizziness or diaphoresis. Patient's last meal was this morning when she ate oatmeal and tea. She denies any history of previous similar pain. She also denies any history of cough, upper respiratory symptoms, fever, or chills. She has no history of heart disease, and the only family history of heart disease as her mother at age 93 of a heart attack. Patient does not smoke or drink alcohol. The pain lasted until after arrival to the ED, and on arrival it was artery improving down to a 2/10, without intervention. Historian: Patient Arrival Mode: Car [employer] Required: No Onset (how long ago): hour(s) (1.5) Location: epigastric and mid-chest Quality: tightness Radiation: Reports non-radiation Severity: severe Onset quality: sudden Duration (how long): hour(s) (1.5) Timing of current episode: constant Progression: resolved Chronicity: new Context: Denies recent illness, Denies trauma/injury Relieving factors: none Exacerbating factors: other (deep breathing seemed to make the pain worse) Associated symptoms: Denies cough, Denies fever/chills, Denies nausea/vomiting Treatments prior to arrival: none Risk factors: age, hyperlipidema Past Medical/Family History Physician Review I have reviewed the patient's past medical and family history. Any updates have been documented here. Past Medical History Recent Fever: No Clinical Suspicion of Infectio: No New/Unexplained Change in Ment: No Past Medical History: TIA, GERD, Hyperlipedemia Other Medical History: Idiopathic Thrombocytopenic Purpura LOW PLATELET COUNT ARTHRITIS BRAIN ANEYURYSM Other Surgery: EGD & Colonoscopy BRAIN ANYEURYSM SURGERY RIGHT LEG SX DUE TO FRACTURE Social History Smoking Cessation: Never Smoker Alcohol Use: None Any Illegal Drug Use: No TB Exposure/Symptoms: No Physically hurt or threatened: No Family History Family history of heart diseas: Yes (Mom, in her 90's.) Other Last Tetanus: Unknown Any Pre-Existing Lines (PICC,: No Review of Systems Review of Systems Constitutional: Denies chills, Denies fever EENTM: Denies nose congestion, Denies throat pain Cardiovascular: Reports chest pain; Denies edema, Denies palpitations Respiratory: Denies cough, Denies dyspnea, Denies dyspnea on exertion Gastrointestinal: Reports abdominal pain (epigastric); Denies diarrhea, Denies nausea, Denies vomiting Genitourinary: Denies dysuria, Denies frequency Musculoskeletal: Denies back pain, Denies neck pain Integumentary: Denies change in color, Denies rash Neurological: Denies headache, Denies tingling Psychological: Reports no symptoms Endocrine: Reports no symptoms Hematological/Lymphatic: Reports no symptoms Review of other systems: All other systems negative Physical Exam Related Data Allergies: Coded Allergies: memantine (Verified Allergy, Intermediate, Hallucinations, 11/30/15) celecoxib (Verified Allergy, Mild, Stomach complaints, 11/30/15) tramadol (Verified Allergy, Mild, Stomach complaints, lightheadedness, 11/30/15) Penicillins (Verified Allergy, Unknown, 11/30/15) clindamycin (Verified Allergy, Unknown, 09/10/16) codeine (Verified Allergy, Unknown, 11/30/15) dicyclomine (Verified Allergy, Unknown, 09/10/16) duloxetine (Verified Allergy, Unknown, 01/24/20) oxybutynin (Verified Allergy, Unknown, 01/24/20) Triage Vital Signs Vital Signs Date Time Temp Pulse Resp B/P (MAP) Pulse Ox O2 Delivery O2 Flow Rate FiO2 01/24/20 15:20 99.0 73 16 174/67 96 Room Air Vital signs reviewed: Yes Physical Exam CONSTITUTIONAL Constitutional: Present well-developed, Present well-nourished; Absent distressed, Absent ill appearing HENT HENT: Present normocephalic, Present atraumatic, Present oropharynx clear/moist, Present nose normal; Absent nasal congestion, Absent rhinorrhea HENT L/R: Present left ext ear normal, Present right ext ear normal EYES Eyes: Reports PERRL, Reports conjunctivae normal, Reports EOM normal NECK Neck: Present ROM normal, Present supple; Absent cervical adenopathy PULMONARY Pulmonary: Present effort normal, Present breath sounds normal CARDIOVASCULAR Cardiovascular: Present regular rhythm, Present heart sounds normal, Present capillary refill normal, Present normal rate; Absent murmur GASTROINTESTINAL Abdominal: Present soft, Present nontender, Present bowel sounds normal; Absent tender, Absent guarding GENITOURINARY Genitourinary: Present exam deferred SKIN Skin: Present warm, Present dry; Absent rash MUSCULOSKELETAL Musculoskeletal: Present ROM normal; Absent edema, Absent tenderness NEUROLOGICAL Neurological: Present alert, Present oriented x 3, Present no gross motor or sensory deficits; Absent cranial nerve deficit PSYCHOLOGICAL Psychological: Present mood/affect normal, Present judgement normal Results Laboratory Lab results reviewed: Yes Laboratory comments CBC - nl, except for plt = 105; [place] - nl except for Cr = 0.5; Liver panel - normal; Cardiacs - negative; D-dimer - not elevated; UA - neg., except for blo - small, ilsa - trace; Imaging Imaging results reviewed: Yes Impressions [place] [id number] Patient Name: ERNESTO CATALAN MR #: [id number] : 1945 Age/Sex: 74/F Req #: [id number] Adm Physician: Ordered by: MICHELLE CARVAJAL MD Report #: [id number] Location: [facility] Room/Bed: Procedure: [id number] HOPD/CXR 2 VIEW - HOPD Exam Date: 01/24/20 Exam Time: 1629 REPORT STATUS: Signed X-ray chest 2 views History: Chest pain Comparison: 10/14/2018 Findings: Central airways: Unremarkable. Heart: Normal size. Major vessels: Atherosclerotic aorta Mediastinal silhouettes: Unremarkable. Pleural spaces: No pleural effusion or pneumothorax. Lungs: No significant focal lung disease. The right lower lung zone nodule is visualized again and is unchanged. Skeletal structures: Unremarkable. Extrathoracic soft tissues: Unremarkable. Impression: No significant abnormality on this exam. Signed by: Gilmar Contreras MD on 01/24/2020 4:55 PM Dictated By: GILMAR CONTRERAS MD 54 Transcribed By: JAYLA on 01/24/201654 COPY TO: MICHELLE CARVAJAL MD~ Procedures 12 Lead ECG Interpretation ECG Interpretation : ECG: ECG 1 [employer]: Interpreted by ED physician Date: Jan 24, 2020 Time: 15:29 Prior ECG tracings: not available for review Rhythm: sinus rhythm Rate: normal BPM: 69 QRS axis: normal ST segments normal: Yes T waves normal: Yes Other findings: no other findings Clinical Impression: normal ECG Clinical Decision Tools HEART Score Date Taken: Jan 24, 2020 Time taken: 17:00 List risk factors Hyperlipidemia, TIA, Age HEART Score: HEART Score Response (Comments) Value History Moderately suspicious 1 EKG Normal 0 Age > or equal to 65 2 Risk factors 1 or 2 risk factors 1 Troponin < or = to normal limit Total 4 Assessment & Plan Medical Decision Making MDM - 74-year-old female, with a history of hyperlipidemia and TIA, who presents with epigastric pain radiating into her chest, that is more suspicious for a GI etiology; however, due to her risk factors and HEART score of 4, she is being admitted for observation, and further evaluation of her symptoms. Discussed with patient, and she is agreeable to admission. 17:50 - Case discussed with Dr. Raf Voss, who is agreeable to admitting patient to obs tele. Assessment & Plan Final Impression: (1) Chest pain (2) Hyperlipidemia (3) GERD (gastroesophageal reflux disease) (4) History of TIA (transient ischemic attack) Depart Disposition: ADMITTED Last Vital Signs Date Time Temp Pulse Resp B/P (MAP) Pulse Ox O2 Delivery O2 Flow Rate FiO2 01/24/20 15:20 99.0 73 16 174/67 96 Room Air Home Meds Reported Medications Cyanocobalamin (VITAMIN B-12) 1,000 Mcg Tab, 5000 MCG PO DAILY, #30 TAB 11/30/15 Donepezil Hcl (DONEPEZIL HCL) 5 Mg Tablet, 5 MG PO HS 11/30/15 Citalopram Hydrobromide (CITALOPRAM HBR) 20 Mg Tablet, 20 MG PO DAILY, TAB 11/30/15 Cholecalciferol (Vitamin D3) (VITAMIN D) 1,000 Unit Tablet, 80432 UNIT PO WKLY, #30 TAB 11/30/15 Diclofenac Sodium (VOLTAREN) 100 Gm Gel..gram., 1 UDPKT TOP PRN THERAPEUTICALLY SUBSTITUTED WITH IBUPROFEN 600MG 11/30/15 Omeprazole (OMEPRAZOLE) 40 Mg Capsule.dr, 40 MG PO DAILY 11/30/15 Atorvastatin Calcium (ATORVASTATIN CALCIUM) 20 Mg Tablet, 20 MG PO 2100, TAB 06/23/14 Gabapentin (GABAPENTIN) 300 Mg Capsule, 600 MG PO HS, #60 CAP 06/23/14 Discontinued Reported Medications Dicyclomine Hcl (DICYCLOMINE HCL) 20 Mg Tablet, 20 MG PO BID, TAB 11/30/15 Discontinued Scripts Prednisone (PREDNISONE) 20 Mg Tab, 20 MG PO DAILY, #6 TAB Prov:BAY ALSTON MD 08/08/19 MICHELLE CARVAJAL MD Jan 24, 2020 15:52
--- OUTSIDE RECORDS SUMMARY | 2020-01-24 16:30 | XMS REPORT | Continuity of Care Document ---
Author Author [facility] t Organization [facility] Address [address] [place] [address] Phone Unavailable Care Team Providers Care Fertilizer Supervisor Name Role Phone HUGO NELSON MD S (NS) MATILDE PCP [phone] SOLANGE HARRISON M.D. Attphys UnavailMATILDE Ortega M.D. Attphys Unavailable COLTON YORK M.D. Attphys Unavailabl BAY Diaz Attphys Unavailable DONTE SINGH PA Attphys Unavailable HAMPEL, YADIEL Attphys Unavailable MONICA ROSAS D.O. Attphys Unavailable LEXIE WILSON M.D. Attphys Unavailable VASCULAR, SE Attphys Unavailable Felisha LOMBARDO Attphys Unavailable SOBEIDA CHEUNG P.A. Attphys Unavailable BALTAZAR JO P.A. Attphys Unavailable DONTE SINGH M.D. Attphys Unavailable RODNEY MONTENEGRO P.A. Attphys Unavailable HAYLEE YIN Attphys Unavailable VIRGIL POE M.D. Attphys Unavailable VASCULAR, [place] Attphys Unavailable [place]-MS, ECHO Attphys Unavailable KERRI CASTILLO M.D. Attphys Unavailable LAWRENCE DANIELSON M.D. Attphys Unavailable MOLLY BARRON NP Attphys Unavailable SUNSHINE HANNA NP Attphys Unavailable KACIE MAGDALENO M.D. Attphys Unavailable Payers Payer Name Policy Type Policy Number Effective Date Expiration Date Daphne Diaz Medicare [id number] 2017 00:00:00 [facility] Medicare A & B [id number] [facility] [employer] [facility] Care [id number] [facility] Problems Condition Name Condition Details Condition Category Status Onset Date Resolution Date Last Treatment Date Treating Clinician Comments Source Cervical radiculopathy Problem Active [facility] Left upper extremity numbness Problem Active [facility] History of Chronic Tear Of Left Rotator Cuff Tendon Hi story of Chronic Tear Of Left Rotator Cuff Tendon Problem Resolved [facility] History of abdominal pain History of abdominal pain Problem Resolved [facility] History of Abnormal mammography History of Abnormal mammography Problem Resolved [facility] History of melena History of melena Problem Resolved [facility] History of hyperlipidemia History of hyperlipidemia Problem Resolved [facility] History of Long-term use of Plaquenil History of Long-term u se of Plaquenil Problem Resolved [facility] History of Major depressive disorder, single episode, mild History of Major depressive disorder, single episode, mild Problem Resolved [facility] History of Metallic taste History of Metallic taste Problem Resolved [facility] History of Other acute gastritis without hemorrhage Hi story of Other acute gastritis without hemorrhage Problem Resolved [facility] Encounter for screening mammogram for breast cancer En counter for screening mammogram for breast cancer Problem Active [facility] Hyperglycemia Hyperglycemia Problem Active [facility] Allergic rhinitis, seasonal Allergic rhinitis, seasonal Problem Active [facility] Arthralgia of shoulder region Arthralgia of shoulder region Problem Active [facility] BMI 29.0-29.9,adult BMI 29.0-29.9,adult Problem Active [facility] Degenerative tear of glenoid labrum of left shoulder D egenerative tear of glenoid labrum of left shoulder Problem Active [facility] Generalized osteoarthritis of multiple sites Generaliz ed osteoarthritis of multiple sites Problem Active [facility] Insomnia Ins[facility] Nontraumatic tear of supraspinatus tendon, left Nontra umatic tear of supraspinatus tendon, left Problem Active [facility] Osteoarthritis, hip, bilateral Osteoarthritis, hip, bilateral Problem Active [facility] Osteopenia of multiple sites Osteopenia of multiple sites Problem Active [facility] Pharyngoesophageal dysphagia Pharyngoesophageal dysphagia Problem Active [facility] Sicca syndrome Sicca syndrome Problem Active [facility] Unclassifiable eczema Unclassifiable eczema Problem Active [facility] Vitamin D insufficiency Vitamin D insufficiency Problem Active [facility] Pain in both lower extremities Pain in both lower extremities Problem Active [facility] PAOD (peripheral arterial occlusive disease) PAOD (per ipheral arterial occlusive disease) Problem Active [facility] Cervicalgia Cervicalgia Problem Active [facility] Pain of left upper extremity Pain of left upper extremity Problem Active [facility] Mild cognitive impairment Mild cognitive impairment Problem Active [facility] Screening for breast cancer Screening for breast cancer Problem Active [facility] Aneurysm Aneurysm Problem Active [facility] Chronic venous insufficiency Chronic venous insufficiency Problem Active [facility] Cataract Cataract [facility] Hyperlipidemia Hyperlipidemia Problem Active [facility] IBS (irritable bowel syndrome) IBS (irritable bowel syndrome) Problem Active [facility] Varicose veins with complications Varicose veins with complicati ons Problem Active [facility] Gastroesophageal reflux Gastroesophageal reflux Problem Active [facility] Major depressive disorder, recurrent, moderate Major d epressive disorder, recurrent, moderate Problem Active [facility] Lumbar spondylosis Lumbar spondylosis Problem Active [facility] Knee osteoarthritis Knee osteoarthritis Problem Active [facility] Benign paroxysmal positional vertigo Benign paroxysmal posit ional vertigo Problem Active [facility] Chronic ITP (idiopathic thrombocytopenia) Chronic ITP (idiopathic thrombocytopenia) Problem Active [facility] Rectal bleeding Rectal bleeding Problem Active [facility] Inflamed acrochordon Inflamed acrochordon Problem Active [facility] GENE positive GENE positive Problem Active [facility] Rib pain on right side Rib pain on right side Problem Active [facility] Pain in scapula Pain in scapula Problem Active [facility] Hyperlipidemia Hype rlipidemia Active 06/25/2013 [facility] Problem Active 2013-06-25 14:20:08 M serina Junior Benign Paroxysmal Positional Vertigo Benign Paroxysmal Positional Vertigo Active 06/25/2013 [facility] Problem Active 2013-06-25 14:20:08 Yasmany Junior Tingling (Paresthesia) Ting ling (Paresthesia) Active 06/25/2013 [facility] Problem Active 2013-06-25 14:20:08 Yasmany Junior Insomnia Inso mnia Active 06/25/2013 [facility] Problem Active 2013-06-25 14:20:08 Yasmany Junior Thrombophlebitis Of Superficial Vessels Of The Lower E xtremity Thrombophlebitis Of Superficial Vessels Of The Lower Extremity Active 06/25/2013 [facility] Problem Active 2013-06-25 14:20:08 Yasmany Junior Thrombocytopenia Thro mbocytopenia Active 06/25/2013 [facility] Problem Active 2013-06-25 14:20:08 M emoriquynh Junior Arthralgia Of The Shoulder Region Arthralgia Of The Shoulder Region Active 06/25/2013 [facility] Problem Active 2013-06-25 14:20:08 Yasmany Junior Allergies, Adverse Reactions, Alerts Allergy Name Allergy Type Status Severity Reaction(s) Onset Date Inacti ve Date Treating Clinician Comments Source Penicillins DA Active U 2018-06-10 00:00:00 [facility] codeine DA Active U 2018-06-10 00:00:00 [facility] clindamycin DA Active U 2018-06-10 00:00:00 [facility] omeprazole DA Active U 2018-06-10 00:00:00 [facility] tramadol DA Active U 2018-06-10 00:00:00 [facility] dicyclomine DA Active U 2018-06-10 00:00:00 [facility] memantine DA Active U 2018-06-10 00:00:00 [facility] celecoxib DA Active U 2018-06-10 00:00:00 [facility] Penicillins DA Active U 2018-06-09 00:00:00 [facility] codeine DA Active U 2018-06-09 00:00:00 [facility] clindamycin DA Active U 2018-06-09 00:00:00 [facility] omeprazole DA Active U 2018-06-09 00:00:00 [facility] tramadol DA Active U 2018-06-09 00:00:00 [facility] dicyclomine DA Active U 2018-06-09 00:00:00 [facility] memantine DA Active U 2018-06-09 00:00:00 [facility] celecoxib DA Active U 2018-06-09 00:00:00 [facility] Penicillins DA Active U 2017-07-20 00:00:00 [facility] codeine DA Active U 2017-07-20 00:00:00 [facility] clindamycin DA Active U 2017-07-20 00:00:00 [facility] omeprazole DA Active U 2017-07-20 00:00:00 [facility] tramadol DA Active U 2017-07-20 00:00:00 [facility] dicyclomine DA Active U 2017-07-20 00:00:00 [facility] memantine DA Active U 2017-07-20 00:00:00 [facility] celecoxib DA Active U 2017-07-20 00:00:00 [facility] Clindamycin Allergy to substance Active 2016-09-10 00:00:00 [facility] Dicyclomine Allergy to substance Active 2016-09-10 00:00:00 [facility] Codeine Allergy to substance Active 2015-11-30 00:00:00 [facility] Tramadol Allergy to substance Active Mild Stomach complai nts, lightheadedness 2015-11-30 00:00:00 [facility] Memantine Allergy to substance Active Moderate Hallucinations 2015-11-30 00:00:00 [facility] Celecoxib Allergy to substance Active Mild Stomach complai nts 2015-11-30 00:00:00 [facility] Penicillin Allergy to substance Active 2015-11-30 00:00:00 [facility] CeleBREX CAPS Allergy to drug (finding) Active [facility] Penicillins Allergy to drug (finding) Active [facility] traMADol HCl TABS Allergy to drug (finding) Active Diarrhea, Constipation, Itching [facility] Codeine Sulfate SOLN Allergy to drug (finding) Active [facility] clindamycin Allergy to drug (finding) Active Diarrhea, Dizziness [facility] dicyclomine Allergy to drug (finding) Active [facility] duloxetine Allergy to drug (finding) Active [facility] Namenda Allergy to drug (finding) Active Hallucinations [facility] oxybutynin Allergy to drug (finding) Active [facility] Codeine Sulfate SOLN Codeine Sulfate SOLN Active [facility] Penicillins Penicillins Active [facility] Family History Family Member Diagnosis Comments Start Date Stop Date Source Mother Family history of Hypertension [facility] Unknown Family Member Family History 2012-09-25 10:17:43 2 10:17:43 [facility] Social History Social Habit Start Date Stop Date Quantity Comments Source Social History 2013-06-25 14:20:08 2013-06-25 14:20:08 [facility] Sex Assigned At 1945 00:00:00 1945 00:00:00 [facility] Smoking Status Start Date Stop Date Source [facility] smoked tobacco (finding[facility] Medications Ordered Medication Name Filled Medication Name Start Date Stop Da te Current Medication? Ordering Clinician Indication Dosage Frequency Signature (SIG) Comments Components Source tiZANidine HCl - 2 MG Oral Capsule tiZANidine HCl - 2 MG Ora l Capsule 2019-12-06 00:00:00 Yes SOLANGE HARRISON M.D. 1 TAKE 1 CAPSULE Bedtime PRN muscle pain [facility] Prednisone Prednisone 2019-08-08 16:15:00 Yes 20 Bernice ly [facility] Gabapentin 300 MG Oral Capsule Gabapentin 300 MG Oral Capsul e 2018-04-09 00:00:00 Yes MATILDE ARIAS M.D. 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 Apply 4g t o affected area twice daily as needed for pain. [facility] Calcium 1000 + D 1000-800 MG-UNIT Oral Tablet Calcium 1000 + D 1000-800 MG-UNIT Oral Tablet 2015-07-14 00:00:00 Yes 1 QD TAKE 1 TABLE T DAILY [facility] Atorvastatin Calcium 20 MG Oral Tablet Atorvastatin Calcium 20 MG Oral Tablet 2014-01-13 00:00:00 Yes MATILDE ARIAS M.D. 1 QD TAKE 1 TABLET BY MOUTH DAILY [facility] B-12 2500 MCG Sublingual Tablet Sublingual 2013-06-25 14:20:08 Yes (Active) [facility] Cyclobenzaprine HCl 5 MG Oral Tablet 2013-06-25 05:00:00 Ye s ; Start Date: 06/25/2013 (Active) Yasmany Hamiltona nn Meloxicam 7.5 MG Oral Tablet 2013-05-06 05:00:00 Yes ; Start Date: 05/06/2013; End Date: (Active) Yasmany Hamiltonann Gabapentin 100 MG Oral Capsule 2013-04-09 06:00:00 Yes ; Start Date: 04/09/2013 (Active) Yasmany Hamiltonann Fish Oil CAPS 2013-01-08 19:17:42 Yes (Acti ve) [facility] Calcium + D TABS 2013-01-08 19:17:42 Yes (A ctive) Yasmany Hamiltonann Atorvastatin Calcium 10 MG Oral Tablet 2012-11-26 22:16:38 Yes (Active) [facility] Amitriptyline HCl 25 MG Oral Tablet 2012-09-24 05:00:00 Yes ; Start Date: 09/24/2012; End Date: (Active) [facility] Claritin 10 MG Oral Tablet 2012-09-24 05:00:00 Yes ; Start Date: 09/24/2012 (Active) [facility] Atorvastatin Calcium 20 MG Oral Tablet Yes ; Start Date: ; End Date: (Active) [facility] Atorvastatin Calcium Atorvastatin Calcium Yes 20 Today At 9:00PM [facility] Cholecalciferol (Vitamin D3) (Vitamin D) 1,000 Unit TA BLET Cholecalciferol (Vitamin D3) (Vitamin D) 1,000 Unit TABLET Yes [id number] Wkly [facility] Citalopram Hydrobromide (Citalopram Hbr) 20 Mg TABLET Citalopram Hydrobromide (Citalopram Hbr) 20 Mg TABLET Yes 20 Daily [facility] Cyanocobalamin (Vitamin B-12) 1,000 Mcg TAB Cyanocobal cross (Vitamin B-12) 1,000 Mcg TAB Yes 5000 Daily [facility] Diclofenac Sodium (Voltaren) 100 Gm GEL..GRAM. Diclofe nac Sodium (Voltaren) 100 Gm GEL..GRAM. Yes 1 As Needed [facility] Dicyclomine Hcl Dicyclomine Hcl Yes 20 Twice A Day [facility] Donepezil Hcl Donepezil Hcl Yes 5 Bedtime [facility] Gabapentin Gabapentin Yes 600 Bedtime [facility] Omeprazole Omeprazole Yes 40 Daily [facility] B-12 5000 MCG Sublingual Tablet Sublingual B-12 5000 M CG Sublingual Tablet Sublingual Yes 1 tablet twice weekly [facility] HM Vitamin D3 50 MCG (2000 UT) Oral Capsule HM Vitamin D3 50 MCG (2000 UT) Oral Capsule Yes TAKE 1 SOFTGEL DAILY [facility] [place]-3 Fish Oil 1000 MG Oral Capsule [place]-3 Fish Oil 1000 MG Oral Capsule Yes 1 Q0.5D TAKE 1 CAPSULE TWICE DAILY [facility] Cyanocobalamin (Vitamin B-12) (B-12) 2,500 Mcg TAB.SUB L Cyanocobalamin (Vitamin B-12) (B-12) 2,500 Mcg TAB.SUBL 2015-11-30 00:00:00 No [facility] Naproxen Naproxen 2015-11-30 00:00:00 No 500 Every 4 Hours [facility] Omeprazole Omeprazole 2015-11-30 00:00:00 No 20 [facility] Celecoxib (Celebrex*) 100 Mg CAPSULE Celecoxib (Celebrex*) 100 M g CAPSULE 2015-05-27 00:00:00 No 100 Twice A Day [facility] Immunizations Ordered Immunization Name Filled Immunization Name Date Status Comments Source Shingrix 50 MCG Intramuscular Suspension Reconstituted 2018-07-08 00:00:00 Completed [facility] Shingrix 50 MCG Intramuscular Suspension Reconstituted 2018-05-09 00:00:00 Completed [facility] Fluzone High-Dose 0.5 ML Intramuscular Suspension Prefilled Syringe 2017-10-25 11:19:00 Completed [facility] Fluzone Quadrivalent 0.5 ML Intramuscular Suspension 2016-12-07 12:25:00 Completed [facility] Pneumovax 23 25 MCG/0.5ML Injection Injectable 2016-11 12:24:00 Completed [facility] Fluzone Quadrivalent 0.5 ML Intramuscular Suspension 2015-11-04 09:59:00 Completed [facility] Prevnar 13 Intramuscular Suspension 2014-12-22 11:15:00 Co mpleted [facility] Fluzone High-Dose SUSP 2014-12-09 10:43:00 Completed [facility] Influenza 2014-01-28 10:41:00 Completed [facility] Pneumococcal polysaccharide vaccine, 23 valent 2010-08 00:00:00 Completed [facility] Tdap 2005-08-31 00:00:00 Completed [facility] Vital Signs Vital Name Observation Time Observation Value Comments Source Systolic blood pressure 2019-12-06 10:50:00 133 mm[Hg] Loca tion: LUE; Position: Sitting [facility] Diastolic blood pressure 2019-12-06 10:50:00 68 mm[Hg] Loc ation: LUE; Position: Sitting [facility] Body height 2019-12-06 10:50:00 61 [in_us] [facility] Weight 2019-12-06 10:50:00 146 [lb_av] [facility] Body mass index (BMI) [Ratio] 2019-12-06 10:50:00 27.59 kg/m2 [facility] Body temperature 2019-12-06 10:50:00 96.8 [degF] Method: Temporal [facility] Heart Rate 2019-12-06 10:50:00 65 /min [facility] Systolic blood pressure 2019-10-25 13:54:00 119 mm[Hg] [facility] Diastolic blood pressure 2019-10-25 13:54:00 62 mm[Hg] [facility] Body height 2019-10-25 13:54:00 61 [in_us] [facility] Weight 2019-10-25 13:54:00 146 [lb_av] [facility] Body mass index (BMI) [Ratio] 2019-10-25 13:54:00 27.59 kg/m2 [facility] Body temperature 2019-10-25 13:54:00 97.9 [degF] [facility] Heart Rate 2019-10-25 13:54:00 65 /min [facility] Respiratory rate 2019-10-25 13:54:00 16 /min [facility] Weight 2019-08-08 14:20:00 160 [lb_av] [facility] BMI (Body Mass Index) 2019-08-08 14:20:00 30.2 kg/m2 [facility] Systolic blood pressure 2019-07-29 14:49:00 144 mm[Hg] [facility] Diastolic blood pressure 2019-07-29 14:49:00 69 mm[Hg] [facility] Body height 2019-07-29 14:49:00 61 [in_us] [facility] Weight 2019-07-29 14:49:00 146 [lb_av] [facility] Body mass index (BMI) [Ratio] 2019-07-29 14:49:00 27.59 kg/m2 [facility] Body temperature 2019-07-29 14:49:00 97.7 [degF] Method: Temporal [facility] Respiratory rate 2019-07-29 14:49:00 18 /min [facility] Heart Rate 2019-07-29 14:49:00 62 /min [facility] Systolic blood pressure 2019-07-18 15:27:00 145 mm[Hg] [facility] Diastolic blood pressure 2019-07-18 15:27:00 73 mm[Hg] [facility] Systolic blood pressure 2019-07-18 15:26:00 156 mm[Hg] Loca tion: LUE; Position: Sitting [facility] Diastolic blood pressure 2019-07-18 15:26:00 80 mm[Hg] Loc ation: LUE; Position: Sitting [facility] Body height 2019-07-18 15:26:00 61 [in_us] [facility] Weight 2019-07-18 15:26:00 142 [lb_av] [facility] Body mass index (BMI) [Ratio] 2019-07-18 15:26:00 26.83 kg/m2 [facility] Body temperature 2019-07-18 15:26:00 98.2 [degF] Method: Temporal [facility] Heart Rate 2019-07-18 15:26:00 71 /min [facility] Respiratory rate 2019-07-18 15:26:00 16 /min [facility] Systolic blood pressure 2019-06-14 14:53:00 120 mm[Hg] [facility] Diastolic blood pressure 2019-06-14 14:53:00 58 mm[Hg] [facility] Body height 2019-06-14 14:53:00 61 [in_us] [facility] Weight 2019-06-14 14:53:00 143 [lb_av] [facility] Body mass index (BMI) [Ratio] 2019-06-14 14:53:00 27.02 kg/m2 [facility] Body temperature 2019-06-14 14:53:00 97.7 [degF] Method: Temporal [facility] Heart Rate 2019-06-14 14:53:00 65 /min [facility] Respiratory rate 2019-06-14 14:53:00 16 /min [facility] Systolic blood pressure 2019-04-26 14:44:00 114 mm[Hg] Loca tion: LUE; Position: Sitting [facility] Diastolic blood pressure 2019-04-26 14:44:00 68 mm[Hg] Loc ation: LUE; Position: Sitting [facility] Body height 2019-04-26 14:44:00 61 [in_us] [facility] Body mass index (BMI) [Ratio] 2019-04-26 14:44:00 27.21 kg/m2 [facility] Weight 2019-04-26 14:44:00 144 [lb_av] [facility] Heart Rate 2019-04-26 14:44:00 71 /min Location: L Radial; Q uality: Normal [facility] Systolic blood pressure 2019-04-26 13:51:00 114 mm[Hg] Loca tion: LLE; Position: Sitting [facility] Diastolic blood pressure 2019-04-26 13:51:00 68 mm[Hg] Loc ation: LLE; Position: Sitting [facility] Body height 2019-04-26 13:51:00 61 [in_us] [facility] Weight 2019-04-26 13:51:00 144.5625 [lb_av] [facility] Body mass index (BMI) [Ratio] 2019-04-26 13:51:00 27.32 kg/m2 [facility] Body temperature 2019-04-26 13:51:00 97.3 [degF] Method: Temporal [facility] Respiratory rate 2019-04-26 13:51:00 16 /min [facility] Heart Rate 2019-04-26 13:51:00 71 /min [facility] Systolic blood pressure 2019-03-28 12:56:00 120 mm[Hg] Loca tion: LUE; Position: Sitting [facility] Diastolic blood pressure 2019-03-28 12:56:00 56 mm[Hg] Loc ation: LUE; Position: Sitting [facility] Body height 2019-03-28 12:56:00 61 [in_us] [facility] Weight 2019-03-28 12:56:00 145 [lb_av] [facility] Body mass index (BMI) [Ratio] 2019-03-28 12:56:00 27.4 kg/m2 [facility] Heart Rate 2019-03-28 12:56:00 63 /min Location: L Radial; Q uality: Normal [facility] BP Systolic 2019-03-21 14:28:00 120 mm[Hg] Location: LUE; Positi on: Sitting [facility] BP Diastolic 2019-03-21 14:28:00 64 mm[Hg] Location: LUE; Positi on: Sitting [facility] Height 2019-03-21 14:28:00 61 [in_us] [facility] Weight 2019-03-21 14:28:00 143 [lb_av] [facility] Body Mass Index Calculated 2019-03-21 14:28:00 27.02 kg/m2 [facility] Heart Rate 2019-03-21 14:28:00 74 /min [facility] BP Systolic 2019-02-05 10:38:00 100 mm[Hg] Location: [place]; Positi on: Sitting [facility] BP Diastolic 2019-02-05 10:38:00 62 mm[Hg] Location: LUE; Positi on: Sitting [facility] Weight 2019-02-05 10:38:00 145 [lb_av] [facility] Body Mass Index Calculated 2019-02-05 10:38:00 27.4 kg/m2 [facility] Height 2019-02-05 10:38:00 61 [in_us] [facility] Temperature 2019-02-05 10:38:00 98.5 [degF] Method: Temporal [facility] Respiration Rate 2019-02-05 10:38:00 16 /min [facility] Heart Rate 2019-02-05 10:38:00 63 /min [facility] BP Systolic 2019-01-29 14:56:00 125 mm[Hg] Location: [place]; Positi on: Sitting [facility] BP Diastolic 2019-01-29 14:56:00 67 mm[Hg] Location: [place]; Positi on: Sitting [facility] Height 2019-01-29 14:56:00 61 [in_us] [facility] Weight 2019-01-29 14:56:00 145 [lb_av] [facility] Body Mass Index Calculated 2019-01-29 14:56:00 27.4 kg/m2 [facility] Heart Rate 2019-01-29 14:56:00 64 /min Location: L Radial; [facility] BP Systolic 2018-10-25 09:09:00 113 mm[Hg] Location: [place]; Positi on: Sitting [facility] BP Diastolic 2018-10-25 09:09:00 69 mm[Hg] Location: [place]; Positi on: Sitting [facility] Height 2018-10-25 09:09:00 61 [in_us] [facility] Weight 2018-10-25 09:09:00 146 [lb_av] [facility] Body Mass Index Calculated 2018-10-25 09:09:00 27.59 kg/m2 [facility] Temperature 2018-10-25 09:09:00 97.5 [degF] Method: Temporal [facility] Respiration Rate 2018-10-25 09:09:00 16 /min [facility] Heart Rate 2018-10-25 09:09:00 73 /min [facility] BP Systolic 2018-10-18 12:47:00 109 mm[Hg] Location: LUE; Positi on: Sitting [facility] BP Diastolic 2018-10-18 12:47:00 61 mm[Hg] Location: LUE; Positi on: Sitting [facility] Height 2018-10-18 12:47:00 61 [in_us] [facility] Weight 2018-10-18 12:47:00 148.6 [lb_av] [facility] Body Mass Index Calculated 2018-10-18 12:47:00 28.08 kg/m2 [facility] Heart Rate 2018-10-18 12:47:00 68 /min Location: L Brachial Artery; [facility] Respiration Rate 2018-10-18 12:47:00 18 /min [facility] BP Systolic 2018-09-17 14:15:00 114 mm[Hg] Location: LUE; Positi on: Sitting [facility] BP Diastolic 2018-09-17 14:15:00 61 mm[Hg] Location: LUE; Positi on: Sitting [facility] Height 2018-09-17 14:15:00 61 [in_us] [facility] Body Mass Index Calculated 2018-09-17 14:15:00 28.15 kg/m2 [facility] Weight 2018-09-17 14:15:00 149 [lb_av] [facility] Temperature 2018-09-17 14:15:00 97.8 [degF] Method: Oral [facility] Heart Rate 2018-09-17 14:15:00 62 /min [facility] BP Systolic 2018-09-17 13:29:00 114 mm[Hg] Location: LUE; Positi on: Sitting [facility] BP Diastolic 2018-09-17 13:29:00 61 mm[Hg] Location: LUE; Positi on: Sitting [facility] Height 2018-09-17 13:29:00 61 [in_us] [facility] Body Mass Index Calculated 2018-09-17 13:29:00 28.15 kg/m2 [facility] Weight 2018-09-17 13:29:00 149 [lb_av] [facility] Heart Rate 2018-09-17 13:29:00 62 /min Location: L Radial; [facility] BP Systolic 2018-08-28 12:53:00 113 mm[Hg] Location: LUE; Positi on: Sitting [facility] BP Diastolic 2018-08-28 12:53:00 64 mm[Hg] Location: LUE; Positi on: Sitting [facility] Height 2018-08-28 12:53:00 61 [in_us] [facility] Body Mass Index Calculated 2018-08-28 12:53:00 28.15 kg/m2 [facility] Weight 2018-08-28 12:53:00 149 [lb_av] [facility] Heart Rate 2018-08-28 12:53:00 59 /min Location: L Radial; [facility] BP Systolic 2018-08-27 16:01:00 106 mm[Hg] Location: LUE; Positi on: Sitting [facility] BP Diastolic 2018-08-27 16:01:00 64 mm[Hg] Location: LUE; Positi on: Sitting [facility] Height 2018-08-27 16:01:00 61 [in_us] [facility] Body Mass Index Calculated 2018-08-27 16:01:00 27.78 kg/m2 [facility] Weight 2018-08-27 16:01:00 147 [lb_av] [facility] Temperature 2018-08-27 16:01:00 97.4 [degF] Method: Temporal [facility] Heart Rate 2018-08-27 16:01:00 65 /min [facility] Respiration Rate 2018-08-27 16:01:00 16 /min [facility] BP Systolic 2018-07-11 14:43:00 136 mm[Hg] Location: LUE; Positi on: Sitting [facility] BP Diastolic 2018-07-11 14:43:00 62 mm[Hg] Location: LUE; Positi on: Sitting [facility] Height 2018-07-11 14:43:00 61 [in_us] [facility] Weight 2018-07-11 14:43:00 148 [lb_av] [facility] Body Mass Index Calculated 2018-07-11 14:43:00 27.96 kg/m2 [facility] Temperature 2018-07-11 14:43:00 96 [degF] Method: [facility]poral [facility] Respiration Rate 2018-07-11 14:43:00 16 /min [facility] Heart Rate 2018-07-11 14:43:00 64 /min [facility] BP Systolic 2018-06-21 10:42:00 126 mm[Hg] Location: [place]; Positi on: Sitting [facility] BP Diastolic 2018-06-21 10:42:00 53 mm[Hg] Location: [place]; Positi on: Sitting [facility] Weight 2018-06-21 10:42:00 155 [lb_av] [facility] Body Mass Index Calculated 2018-06-21 10:42:00 29.29 kg/m2 [facility] Height 2018-06-21 10:42:00 61 [in_us] [facility] Temperature 2018-06-21 10:42:00 97.8 [degF] Method: Temporal [facility] Respiration Rate 2018-06-21 10:42:00 16 /min [facility] Heart Rate 2018-06-21 10:42:00 72 /min [facility] BP Systolic 2018-04-09 11:17:00 109 mm[Hg] Location: [place]; Positi on: Sitting [facility] BP Diastolic 2018-04-09 11:17:00 61 mm[Hg] Location: [place]; Positi on: Sitting [facility] Height 2018-04-09 11:17:00 61 [in_us] [facility] Weight 2018-04-09 11:17:00 155.1875 [lb_av] [facility] Body Mass Index Calculated 2018-04-09 11:17:00 29.32 kg/m2 [facility] Temperature 2018-04-09 11:17:00 97.3 [degF] Method: Temporal [facility] Heart Rate 2018-04-09 11:17:00 69 /min [facility] Respiration Rate 2018-04-09 11:17:00 14 /min [facility] BP Systolic 2018-03-19 14:30:00 115 mm[Hg] Location: LUE; Positi on: Sitting [facility] BP Diastolic 2018-03-19 14:30:00 67 mm[Hg] Location: LUE; Positi on: Sitting [facility] Height 2018-03-19 14:30:00 61 [in_us] [facility] Weight 2018-03-19 14:30:00 155.375 [lb_av] [facility] Body Mass Index Calculated 2018-03-19 14:30:00 29.36 kg/m2 [facility] Temperature 2018-03-19 14:30:00 98 [degF] Method: Oral [facility] Heart Rate 2018-03-19 14:30:00 69 /min [facility] BP Systolic 2018-03-05 13:45:00 121 mm[Hg] Location: LUE; Positi on: Sitting [facility] BP Diastolic 2018-03-05 13:45:00 68 mm[Hg] Location: LUE; Positi on: Sitting [facility] Height 2018-03-05 13:45:00 61 [in_us] [facility] Weight 2018-03-05 13:45:00 154.0625 [lb_av] [facility] Body Mass Index Calculated 2018-03-05 13:45:00 29.11 kg/m2 [facility] Temperature 2018-03-05 13:45:00 98.1 [degF] Method: Temporal [facility] Heart Rate 2018-03-05 13:45:00 82 /min [facility] Respiration Rate 2018-03-05 13:45:00 16 /min [facility] BP Systolic 2018-01-15 15:04:00 120 mm[Hg] Location: LUE; Positi on: Sitting [facility] BP Diastolic 2018-01-15 15:04:00 64 mm[Hg] Location: LUE; Positi on: Sitting [facility] Height 2018-01-15 15:04:00 61 [in_us] [facility] Weight 2018-01-15 15:04:00 161.5 [lb_av] [facility] Body Mass Index Calculated 2018-01-15 15:04:00 30.52 kg/m2 [facility] Temperature 2018-01-15 15:04:00 97.6 [degF] Method: [facility] Heart Rate 2018-01-15 15:04:00 71 /min [facility] BP Systolic 2017-10-25 10:44:00 130 mm[Hg] Location: [place]; Positi on: Sitting [facility] BP Diastolic 2017-10-25 10:44:00 64 mm[Hg] Location: [place]; Positi on: Sitting [facility] Height 2017-10-25 10:44:00 61 [in_us] [facility] Weight 2017-10-25 10:44:00 157.4375 [lb_av] [facility] Body Mass Index Calculated 2017-10-25 10:44:00 29.75 kg/m2 [facility] Temperature 2017-10-25 10:44:00 97.1 [degF] Method: Temporal [facility] Respiration Rate 2017-10-25 10:44:00 16 /min [facility] Heart Rate 2017-10-25 10:44:00 64 /min [facility] BP Systolic 2017-09-29 10:53:00 130 mm[Hg] Location: [place]; Positi on: Sitting [facility] BP Diastolic 2017-09-29 10:53:00 78 mm[Hg] Location: [place]; Positi on: Sitting [facility] Height 2017-09-29 10:53:00 61 [in_us] [facility] Weight 2017-09-29 10:53:00 155.125 [lb_av] [facility] Body Mass Index Calculated 2017-09-29 10:53:00 29.31 kg/m2 [facility] Temperature 2017-09-29 10:53:00 97.1 [degF] Method: Temporal [facility] Heart Rate 2017-09-29 10:53:00 61 /min [facility] Respiration Rate 2017-09-29 10:53:00 16 /min [facility] BP Systolic 2017-09-14 15:31:00 110 mm[Hg] Location: LUE; Positi on: Sitting [facility] BP Diastolic 2017-09-14 15:31:00 69 mm[Hg] Location: LUE; Positi on: Sitting [facility] Height 2017-09-14 15:31:00 61 [in_us] [facility] Weight 2017-09-14 15:31:00 160.6 [lb_av] [facility] Body Mass Index Calculated 2017-09-14 15:31:00 30.35 kg/m2 [facility] Heart Rate 2017-09-14 15:31:00 71 /min [facility] BP Systolic 2017-09-04 11:22:00 126 mm[Hg] Location: LUE; Positi on: Sitting [facility] BP Diastolic 2017-09-04 11:22:00 71 mm[Hg] Location: LUE; Positi on: Sitting [facility] Height 2017-09-04 11:22:00 61 [in_us] [facility] Weight 2017-09-04 11:22:00 159.8 [lb_av] [facility] Body Mass Index Calculated 2017-09-04 11:22:00 30.19 kg/m2 [facility] Heart Rate 2017-09-04 11:22:00 80 /min Location: L Brachial Artery; [facility] Temperature 2017-09-04 11:22:00 97.4 [degF] Method: Oral [facility] Respiration Rate 2017-09-04 11:22:00 18 /min [facility] BP Systolic 2017-08-24 09:03:00 116 mm[Hg] Location: LUE; Positi on: Sitting [facility] BP Diastolic 2017-08-24 09:03:00 72 mm[Hg] Location: [place]; Positi on: Sitting [facility] Height 2017-08-24 09:03:00 61 [in_us] [facility] Weight 2017-08-24 09:03:00 155.0625 [lb_av] [facility] Body Mass Index Calculated 2017-08-24 09:03:00 29.3 kg/m2 [facility] Temperature 2017-08-24 09:03:00 96.6 [degF] Method: Temporal [facility] Heart Rate 2017-08-24 09:03:00 74 /min [facility] Respiration Rate 2017-08-24 09:03:00 16 /min [facility] BP Systolic 2017-07-06 07:42:00 133 mm[Hg] Location: LUE; Positi on: Sitting [facility] BP Diastolic 2017-07-06 07:42:00 60 mm[Hg] Location: LUE; Positi on: Sitting [facility] BP Systolic 2017-07-06 07:40:00 144 mm[Hg] Location: LUE; Positi on: Sitting [facility] BP Diastolic 2017-07-06 07:40:00 83 mm[Hg] Location: LUE; Positi on: Sitting [facility] Height 2017-07-06 07:40:00 61 [in_us] [facility] Weight 2017-07-06 07:40:00 159.125 [lb_av] [facility] Body Mass Index Calculated 2017-07-06 07:40:00 30.07 kg/m2 [facility] Temperature 2017-07-06 07:40:00 97.5 [degF] Method: Temporal [facility] Heart Rate 2017-07-06 07:40:00 60 /min [facility] Respiration Rate 2017-07-06 07:40:00 16 /min [facility] BP Systolic 2017-05-08 14:31:00 111 mm[Hg] Location: LUE; Positi on: Sitting [facility] BP Diastolic 2017-05-08 14:31:00 62 mm[Hg] Location: LUE; Positi on: Sitting [facility] Height 2017-05-08 14:31:00 61 [in_us] [facility] Weight 2017-05-08 14:31:00 157.3125 [lb_av] [facility] Body Mass Index Calculated 2017-05-08 14:31:00 29.72 kg/m2 [facility] Temperature 2017-05-08 14:31:00 96.9 [degF] Method: Temporal [facility] Heart Rate 2017-05-08 14:31:00 54 /min Location: L Brachial Artery; [facility] Respiration Rate 2017-05-08 14:31:00 16 /min Quality: [facility] BP Systolic 2017-04-19 10:35:00 128 mm[Hg] Location: LUE; Positi on: Sitting [facility] BP Diastolic 2017-04-19 10:35:00 63 mm[Hg] Location: LUE; Positi on: Sitting [facility] Height 2017-04-19 10:35:00 61 [in_us] [facility] Weight 2017-04-19 10:35:00 157.375 [lb_av] [facility] Body Mass Index Calculated 2017-04-19 10:35:00 29.74 kg/m2 [facility] Temperature 2017-04-19 10:35:00 96.3 [degF] Method: Temporal [facility] Respiration Rate 2017-04-19 10:35:00 16 /min [facility] Heart Rate 2017-04-19 10:35:00 64 /min [facility] BP Systolic 2017-03-27 14:53:00 120 mm[Hg] Location: LUE; Positi on: Sitting [facility] BP Diastolic 2017-03-27 14:53:00 67 mm[Hg] Location: LUE; Positi on: Sitting [facility] Height 2017-03-27 14:53:00 61 [in_us] [facility] Weight 2017-03-27 14:53:00 161.5 [lb_av] [facility] Body Mass Index Calculated 2017-03-27 14:53:00 30.52 kg/m2 [facility] Temperature 2017-03-27 14:53:00 98.2 [degF] Method: Oral [facility] Heart Rate 2017-03-27 14:53:00 60 /min [facility] BP Systolic 2017-02-06 15:01:00 122 mm[Hg] Location: LUE; Positi on: Sitting [facility] BP Diastolic 2017-02-06 15:01:00 74 mm[Hg] Location: LUE; Positi on: Sitting [facility] Height 2017-02-06 15:01:00 61 [in_us] [facility] Weight 2017-02-06 15:01:00 158.1875 [lb_av] [facility] Body Mass Index Calculated 2017-02-06 15:01:00 29.89 kg/m2 [facility] Temperature 2017-02-06 15:01:00 97.8 [degF] Method: Temporal [facility] Heart Rate 2017-02-06 15:01:00 61 /min [facility] Systolic 2017-01-16 15:46:00 90 mm[Hg] Location: LUE; Positi on: Sitting [facility] BP Diastolic 2017-01-16 15:46:00 49 mm[Hg] Location: LUE; Positi on: Sitting [facility] Height 2017-01-16 15:46:00 61 [in_us] [facility] Weight 2017-01-16 15:46:00 160.1875 [lb_av] [facility] Body Mass Index Calculated 2017-01-16 15:46:00 30.27 kg/m2 [facility] Temperature 2017-01-16 15:46:00 97.8 [degF] Method: Temporal [facility] Respiration Rate 2017-01-16 15:46:00 16 /min [facility] Heart Rate 2017-01-16 15:46:00 64 /min [facility] BP Systolic 2016-12-27 14:32:00 105 mm[Hg] Location: LUE; Positi on: Sitting [facility] BP Diastolic 2016-12-27 14:32:00 61 mm[Hg] Location: LUE; Positi on: Sitting [facility] Height 2016-12-27 14:32:00 61 [in_us] [facility] Weight 2016-12-27 14:32:00 161.6 [lb_av] [facility] Body Mass Index Calculated 2016-12-27 14:32:00 30.53 kg/m2 [facility] Heart Rate 2016-12-27 14:32:00 62 /min [facility] BP Systolic 2016-12-07 11:47:00 117 mm[Hg] Location: LUE; Positi on: Sitting [facility] BP Diastolic 2016-12-07 11:47:00 59 mm[Hg] Location: LUE; Positi on: Sitting [facility] Height 2016-12-07 11:47:00 61 [in_us] [facility] Weight 2016-12-07 11:47:00 157.1875 [lb_av] [facility] Body Mass Index Calculated 2016-12-07 11:47:00 29.7 kg/m2 [facility] Heart Rate 2016-12-07 11:47:00 69 /min [facility] Temperature 2016-12-07 11:47:00 97.3 [degF] Method: Temporal [facility] Respiration Rate 2016-12-07 11:47:00 16 /min [facility] BP Systolic 2016-12-06 15:24:00 125 mm[Hg] Location: LUE; Positi on: Sitting [facility] BP Diastolic 2016-12-06 15:24:00 73 mm[Hg] Location: [place]; Positi on: Sitting [facility] Height 2016-12-06 15:24:00 61 [in_us] [facility] Weight 2016-12-06 15:24:00 158.375 [lb_av] [facility] Body Mass Index Calculated 2016-12-06 15:24:00 29.92 kg/m2 [facility] Heart Rate 2016-12-06 15:24:00 59 /min Location: L Radial; [facility] Procedures Procedure Date / Time Performed Performing Clinician Sour e [QL] CBC (INCLUDES DIFF/PLT) 2019-12-06 00:00:00 [facility] [QL] C-REACTIVE PROTEIN 2019-12-06 00:00:00 [facility] [QL] SED RATE BY MODIFIED WESTERGREN 2019-12-06 00:00:00 [facility] [QL] COMPLEMENT COMP C3 + C4 2019-12-06 00:00:00 [facility] [QL] VITAMIN D, 25-HYDROXY, LC/MS/MS 2019-12-06 00:00:00 [facility] XRAY Ribs unilateral [id number] 2019-12-06 00:00[facility]00 [facility] X[facility] Scapula frontal and lateral [id number] 2019-12-06 00:00:00 [facility] Skin Tag Removal 2019-10-25 00:00:00 [facility] [QL] LIPID PANEL 2019-10-25 00:00:00 [facility] [QL] TSH, 3RD GENERATION 2019-10-25 00:00:00 [facility] [QL] CMP W/EGFR 2019-10-25 00:00:00 [place] [facility] MA Digital Mammo Screening Mauricio [id number] 2019-10-25 00:00:00 [facility] [QL] CMP W/EGFR 2019-07-18 00:00:00 [facility] [QL] SED RATE BY MODIFIED WESTERGREN 2019-07-18 00:00:00 [facility] [QL] CBC (INCLUDES DIFF/PLT) 2019-07-18 00:00:00 [facility] XRAY Spine cervical 2 or 3 view [id number] 2019-07-18 00:00:00 [facility] Computed tomography of abdomen and pelvis without then with contrast 2019-03-27 00:00:00 [facility] [QLH] CBC (INCLUDES DIFF/PLT) 2019-02-05 00:00:00 [facility] CVRAD - Right Lower Venous Uni/Lmt - [id number] 2018-11-27 00:00:00 [facility] [QLH] CMP W/EGFR 2018-10-25 00:00:00 [facility] [QH] LIPID PANEL WITH REFLEX TO DIRECT LDL 2018-10-25 00:00:00 [facility] MA Digital Mammo Screening Mauricio [id number] 2018-10-25 00:00:00 [facility] X-ray of chest, two views 2018-10-14 00:00:00 DEMARCUS SY [facility] Computed tomography of cervical spine without contrast 10-14 00:00:00 DEMARCUS SY [facility] CVRAD - KAMERON - [id number] 2018-09-18 00:00:00 [facility] CVRAD - Lower Venous Comp - [id number] 2018-09-18 00:00:00 [facility] [QLH] CMP W/EGFR 2018-09-17 00:00:00 [facility] [QL] COMPLEMENT COMPONENT C3C 2018-09-17 00:00:00 [facility]] COMPLEMENT COMPONENT C4C 2018-09-17 00:00:00 [facility]] C-REACTIVE PROTEIN 2018-09-17 00:00:00 [facility]] DNA (DS) ANTIBODY 2018-09-17 00:00:00 [facility]] SED RATE BY MODIFIED WESTERGREN 2018-09-17 00:00:00 [facility]] URINALYSIS, COMPLETE W/REFLEX TO CULTURE 2018-09-17 00:00: [address] [facility] [address] Abdomen w/wo contrast [id number] 2018-09-17 00:00:00 [facility] Colonoscopy 2018-08-28 00:00:00 [facility] EGD (Esophagogastroduodenoscopy) 2018-08-28 00:00:00 [facility] [[facility]] CBC (INCLUDES DIFF/PLT) 2018-08-27 00:00:00 [facility] [] FECAL GLOBIN BY IMMUNOCHEMISTRY 2018-04-09 00:00:00 [facility] XRAY Hand AP lateral oblique Bilateral [id number] 2018-03-19 00:00:00 [facility]] SJOGRENS ANTIBODIES (SS-A,SS-B) 2018-03-05 00:00:00 [facility] [[facility]] TSH, 3RD GENERATION 2018-03-05 00:00:00 [facility]] CBC (INCLUDES DIFF/PLT) 2018-03-05 00:00:00 [facility] [QL] CMP W/EGFR 2018-03-05 00:00:00 [facility] [[facility]] GENE PANEL, COMPREHENSIVE 2018-03-05 00:00:00 [facility] US Thyroid [id number] 2018-03-05 00:00:00 [facility] [[facility]] CBC (INCLUDES DIFF/PLT) 2018-01-15 00:00:00 [facility] [[facility]] CMP W/EGFR 2018-01-15 00:00:00 [facility] [[facility]] COMPLEMENT COMPONENT C3C 2018-01-15 00:00:00 [facility] [[facility]] COMPLEMENT COMPONENT C4C 2018-01-15 00:00:00 [facility] [[facility]] C-REACTIVE PROTEIN 2018-01-15 00:00:00 [facility]] DNA (DS) ANTIBODY 2018-01-15 00:00:00 [facility]] SED RATE BY MODIFIED DARRENERGREN 2018-01-15 00:00:00 [facility] [[facility]] VITAMIN D, 25-HYDROXY, LC/MS/MS 2018-01-15 00:00:00 [facility] [[facility]] CULTURE, URINE, ROUTINE 2017-09-29 00:00:00 [facility] [CRITICAL ACCESS [facility]] URINALYSIS, COMPLETE W/REFLEX TO CULTURE 2017-09-14 00:00: 00 [facility] [[facility]] CMP W/EGFR 2017-08-24 00:00:00 [facility] [] LIPID PANEL WITH REFLEX TO DIRECT LDL 2017-08-24 00:00:00 [facility]] CBC (INCLUDES DIFF/PLT) 2017-08-24 00:00:00 [facility] [place] Digital Mammo Screening Mauricio [id number] 2017-08-24 00:00:00 [facility] [place] Bone Density DXA Dual Energy [id number] 2017-08-24 00:00:00 [facility]] CBC (INCLUDES DIFF/PLT) 2017-03-29 00:00:00 [facility]] CMP W/EGFR 2017-02-06 00:00:00 [facility] [] LIPID PANEL WITH REFLEX TO DIRECT LDL 2017-02-06 00:00:00 [facility]] HEMOGLOBIN A1c 2017-02-06 00:00:00 [facility] CVRAD - Left Lower Venous Uni/Lmt - [id number] 2016-11-16 00:00:00 [facility] History of Open Treatment Of Ankle Dislocation With Fixation [facility] History of Brain Surgery [facility] Plan of Care Planned Activity Planned Date Details Comments Source Diagnostic Test Pending 2018-09-17 00:00:00 CT Abdomen w/wo contrast 09233 [code = 33724] [facility] Diagnostic Test Pending 2018-09-17 00:00:00 CT Abdomen w/wo contrast 92208 [code = 90994] [facility] Diagnostic Test Pending 2018-08-31 00:00:00 Colonoscopy [code = 737 99366] [facility] Diagnostic Test Pending 2018-08-31 00:00:00 EGD (Esophagogas troduodenoscopy) [code = EGD (Esophagogastroduodenoscopy)] [facility] Diagnostic Test Pending 2018-08-31 00:00:00 Colonoscopy [code = 737 94381] [facility] Diagnostic Test Pending 2018-08-31 00:00:00 EGD (Esophagogas troduodenoscopy) [code = EGD (Esophagogastroduodenoscopy)] [facility] Diagnostic Test Pending 2018-08-31 00:00:00 Colonoscopy [code = 737 24694] [facility] Diagnostic Test Pending 2018-08-31 00:00:00 EGD (Esophagogas troduodenoscopy) [code = EGD (Esophagogastroduodenoscopy)] [facility] Diagnostic Test Pending 2018-04-10 00:00:00 [Q] FECAL GLOBIN BY IMMUNOCHEMISTRY [code = [Q] FECAL GLOBIN BY IMMUNOCHEMISTRY] [facility] Diagnostic Test Pending 2018-04-10 00:00:00 [Q] FECAL GLOBIN BY IMMUNOCHEMISTRY [code = [Q] FECAL GLOBIN BY IMMUNOCHEMISTRY] [facility] Diagnostic Test Pending 2016-11-16 00:00:00 CVRAD - Left Low er Venous Uni/Lmt - 28852 [code = 56023] [facility] Diagnostic Test Pending 2016-10-10 00:00:00 [N] Venous Duple x Lower Unilateral [code = [N] Venous Duplex Lower Unilateral] [facility] Future Scheduled Test 2013-06-25 14:20:08 Plan of Care [code = 1877 6-5] [facility] Scheduled Test 2013-05-06 13:33:08 Plan of Care [code = 1877 6-5] [facility] Scheduled Test 2013-05-02 21:47:00 Plan of Care [code = 1877 6-5] [facility] Scheduled Test 2013-04-10 22:23:30 Plan of Care [code = 1877 6-5] [facility] Scheduled Test 2013-01-08 19:17:42 Plan of Care [code = 1877 6-5] [facility] Scheduled Test 2013-01-03 22:47:31 Plan of Care [code = 1877 6-5] [facility] Scheduled Test 2012-11-27 16:03:38 Plan of Care [code = 1877 6-5] [facility] Scheduled Test 2012-11-26 22:16:38 Plan of Care [code = 1877 6-5] [facility] Scheduled Test 2012-10-09 12:52:10 Plan of Care [code = 1877 6-5] [facility] Scheduled Test 2012-09-27 10:47:48 Plan of Care [code = 1877 6-5] [facility] Scheduled Test 2012-09-25 10:17:43 Plan of Care [code = 1877 6-5] [facility] Scheduled Test [QLH] CBC (INCLUDE S DIFF/PLT) [code = [QLH] CBC (INCLUDES DIFF/PLT)] Approx [id number] [facility] Future Appointment 2020-04-24 14:30:00 Thomas CHEN, [facility] Future Appointment 2020-03-19 15:00:00 Thomas MINOR, [facility] Future Appointment 2020-02-17 14:00:00 Thomas MINOR, [facility] Future Appointment 2020-01-28 13:45:00 PJ KENT, [facility] Instructions Numbness and Tingling [facility] Encounters Start Date/Time End Date/Time Encounter Type Admission Type [facility] Care Department Encounter ID Source 2019-12-06 11:00:00 2019-12-06 11:00:00 Appointment; SOLANGE HARRISON M.D. GIBSON, MARY CATHERINE, [facility]. [facility] [id number] [facility] 2019-10-25 14:15:00 2019-10-25 14:15:00 Appointment; IMELDA ARIAS M.D. BORTOLOTTI, JULIE, M.D. [facility] [id number] [facility] 2019-10-09 10:00:00 2019-10-09 10:00:00 Appointment; COLTON JEROME M.D. GOMEZ-RIVERA, FERNANDO, M.D. [facility] [place] rhinolaryngology [facility] [id number] [facility] 2019-08-08 14:14:00 2019-08-08 16:55:00 Departed Emergency Room 1 [place] [facility] [id number] I [facility] 2019-07-29 15:15:00 2019-07-29 15:15:00 Appointment; DONTE SINGH PA CATALANO, MARC, PA [facility] [id number] [facility] 2019-07-18 15:30:00 2019-07-18 15:30:00 Appointment; IMELDA ARIAS M.D. BORTOLOTTI, JULIE, M.D. [facility] [id number] [facility] 2019-06-14 15:00:00 2019-06-14 15:00:00 Appointment; IMELDA ARIAS M.D. BORTOLOTTI, JULIE, M.D. [facility] [id number] [facility] 2019-04-26 15:15:00 2019-04-26 15:15:00 Appointment; DONTE SINGH PA CATALANO, MARC, PA [facility] [id number] [facility] 2019-04-26 13:45:00 2019-04-26 13:45:00 Appointment; IMELDA ARIAS M.D. BORTOLOTTI, JULIE, M.D. [facility] [id number] [facility] 2019-03-28 13:15:00 2019-03-28 13:15:00 Appointment; DONTE SINGH PA CATALANO, MARC, PA [facility], [address] [id number] [facility] 2019-03-27 06:04:00 2019-03-27 06:04:00 Registered Clinic 3 ECHAVARRIA MPEL, YADIEL [facility] [id number] [facility] 2019-03-21 14:30:00 2019-03-21 14:30:00 Appointment; SOLANGE AHRRISON M.D. GIBSON, MARY CATHERINE, M.D. [facility], [address] [id number] [facility] 2019-02-05 10:45:00 2019-02-05 10:45:00 Appointment; MONICA ROSAS D.O. YEH, SHAO-CHUN, D.O. [facility] [id number] [facility] 2019-01-29 16:00:00 2019-01-29 16:00:00 Appointment; DONTE SINGH PA CATALANO, MARC, PA [facility], [address] [id number] [facility] 2019-01-14 14:15:00 2019-01-14 14:15:00 Appointment; DONTE SINGH PA CATALANO, MARC, PA [facility] [id number] [facility] 2018-12-11 09:30:00 2018-12-11 09:30:00 Appointment; LEXIE WILSON M.D. MARTIN, GORDON, M.D. [facility] Thoracic Surgery [facility] [id number] [facility] 2018-11-27 09:30:00 2018-11-27 09:30:00 Appointment; VASCULAR, SE VASCULAR, SE [facility] Thoracic Surgery [facility] [id number] [facility] 2018-11-23 06:13:00 2018-11-23 06:13:00 Outpatient [id number] 2018-10-25 10:00:00 2018-10-25 10:00:00 Appointment; IMELDA ARIAS M.D. BORTOLOTTI, JULIE, M.D. [facility] [id number] [facility] 2018-10-25 09:30:00 2018-10-25 09:30:00 Appointment; IMELDA ARIAS M.D. BORTOLOTTI, JULIE, M.D. [facility], [address] [id number] [facility] 2018-10-18 13:00:00 2018-10-18 13:00:00 Appointment; DONTE SINGH PA CATALANO, MARC, PA [facility], [address] [id number] [facility] 2018-10-14 16:58:00 2018-10-14 18:40:00 Departed Emergency Room 1 ABDULLAHI LOMBARDO [facility] [id number] [facility] 2018-10-09 08:45:00 2018-10-09 08:45:00 Appointment; LEXIE WILSON M.D. MARTIN, GORDON, M.D. [facility] Cardiothoracic & Vascular Surgery [facility] [id number] [facility] 2018-09-18 11:30:00 2018-09-18 11:30:00 Appointment; VASCULAR, SE VASCULAR, SE [facility] [id number] [facility] 2018-09-18 11:00:00 2018-09-18 11:00:00 Appointment; VASCULAR, SE VASCULAR, SE [facility] Thoracic Surgery [facility] [id number] [facility] 2018-09-17 14:30:00 2018-09-17 14:30:00 Appointment; SOLANGE HARRISON M.D. GIBSON, MARY CATHERINE, M.D. [facility] Rheumatology [id number] [facility] 2018-09-17 13:30:00 2018-09-17 13:30:00 Appointment; DONTE SINGH PA CATALANO, MARC, PA [facility], [address] [id number] [facility] 2018-09-04 10:30:00 2018-09-04 10:30:00 Appointment; LEXIE WILSON M.D. MARTIN, GORDON, M.D. [facility] Thoracic Surgery [facility] [id number] [facility] 2018-08-31 09:40:00 2018-08-31 09:40:00 Outpatient [facility] [address] [place] [address] 2018-08-28 13:00:00 2018-08-28 13:00:00 Appointment; DONTE SINGH PA CATALANO, MARC, PA [facility], [address] [id number] [facility] 2018-08-27 16:00:00 2018-08-27 16:00:00 Appointment; IMELDA ARIAS M.D. BORTOLOTTI, JULIE, M.D. [facility], [address] [id number] [facility] 2018-07-11 15:00:00 2018-07-11 15:00:00 Appointment; ANGELA CHEUNG P.A. SPOONER, JOSEPH, P.A. [facility] [id number] [facility] 2018-06-21 10:30:00 2018-06-21 10:30:00 Appointment; MONICA ROSAS D.O. YEH, SHAO-CHUN, D.O. [facility] [address] [id number] [facility] 2018-04-20 14:00:00 2018-04-20 14:00:00 Appointment; IMELDA ARIAS M.D. BORTOLOTTI, JULIE, M.D. [facility] [id number] [facility] 2018-04-09 11:00:00 2018-04-09 11:00:00 Appointment; IMELDA ARIAS M.D. BORTOLOTTI, JULIE, M.D. [facility] [address] [id number] [facility] 2018-03-19 15:00:00 2018-03-19 15:00:00 Appointment; SOLANGE HARRISON M.D. GIBSON, MARY CATHERINE, M.D. [facility] [id number] [facility] 2018-03-19 10:45:00 2018-03-19 10:45:00 Appointment; IMELDA ARIAS M.D. BORTOLOTTI, JULIE, M.D. [facility] [id number] [facility] 2018-03-05 14:45:00 2018-03-05 14:45:00 Appointment; IMELDA ARIAS M.D. BORTOLOTTI, JULIE, M.D. [facility] [address] [id number] [facility] 2018-01-15 15:00:00 2018-01-15 15:00:00 Appointment; SOLANGE HARRISON M.D. GIBSON, MARY CATHERINE, M.D. [facility] [address] [id number] [facility] 2017-10-25 10:45:00 2017-10-25 10:45:00 Appointment; IMELDA ARIAS M.D. BORTOLOTTI, JULIE, M.D. [facility] [address] [id number] [facility] 2017-09-29 11:00:00 2017-09-29 11:00:00 Appointment; BALTAZAR JO P.A. CRUZ, LETICIA, P.A. [facility] [id number] [facility] 2017-09-12 13:53:00 2017-09-19 23:59:00 Discharged Recurring [facility] [id number] [facility] 2017-09-14 15:30:00 2017-09-14 15:30:00 Appointment; SOLANGE HARRISON M.D. GIBSON, MARY CATHERINE, M.D. [facility] cialty [id number] [facility] 2017-09-04 11:45:00 2017-09-04 11:45:00 Appointment; DONTE SINGH M.D. CATALANO, MARC, M.D. [facility] [address] [id number] [facility] 2017-08-24 09:00:00 2017-08-24 09:00:00 Appointment; IMELDA ARIAS M.D. BORTOLOTTI, JULIE, M.D. [facility] [address] [id number] [facility] 2017-07-06 07:30:00 2017-07-06 07:30:00 Appointment; RODNEY MONTENEGRO P.A. CAMPOS, BERTHA, P.A. [facility] [id number] [facility] 2017-05-08 14:15:00 2017-05-08 14:15:00 Appointment; IMELDA ARIAS M.D. BORTOLOTTI, JULIE, M.D. [facility] [id number] [facility] 2017-04-19 10:30:00 2017-04-19 10:30:00 Appointment; ANGELA CHEUNG P.A. SPOONER, JOSEPH, P.A. [facility] [address] [id number] [facility] 2017-03-27 15:00:00 2017-03-27 15:00:00 Appointment; SOLANGE HARRISON M.D. GIBSON, MARY CATHERINE, M.D. [facility] [id number] [facility] 2017-02-06 15:00:00 2017-02-06 15:00:00 Appointment; IMELDA ARIAS M.D. BORTOLOTTI, JULIE, M.D. [facility] [address] [id number] [facility] 2017-01-23 13:00:00 2017-01-23 13:00:00 Appointment; ARSALAN YIN CHRISTINE [facility] [id number] [facility] 2017-01-16 15:30:00 2017-01-16 15:30:00 Appointment; IMELDA ARIAS M.D. BORTOLOTTI, JULIE, M.D. [facility] [address] [id number] [facility] 2016-12-27 14:30:00 2016-12-27 14:30:00 Appointment; SOLANGE HARRISON M.D. GIBSON, MARY CATHERINE, M.D. [facility] [id number] [facility] 2016-12-07 11:45:00 2016-12-07 11:45:00 Appointment; IMELDA ARIAS M.D. BORTOLOTTI, JULIE, M.D. [facility] UTP [id number] [facility] 2016-12-06 10:45:00 2016-12-06 10:45:00 Appointment; VIRGIL POE M.D. HARLIN, STUART, M.D. [facility] UTP [id number] [facility] 2016-11-16 09:00:00 2016-11-16 09:00:00 Appointment; VASCULAR, SE VASCULAR, SE [facility] UTP [id number] [facility] 2016-11-07 11:45:00 2016-11-07 11:45:00 Appointment; DONTE SINGH M.D. CATALANO, MARC, M.D. [facility] UTP [id number] [facility] 2016-11-07 11:45:00 2016-11-07 11:45:00 Appointment; DONTE SINGH M.D. CATALANO, MARC, M.D. [facility] UTP [id number] [facility] 2016-10-11 09:15:00 2016-10-11 09:15:00 Appointment; VIRGIL POE M.D. HARLIN, STUART, M.D. [facility] [id number] [facility] 2016-10-11 09:00:00 2016-10-11 09:00:00 Appointment; VASCULAR, [place], [facility] UTP [id number] [facility] 2016-09-28 14:30:00 2016-09-28 14:30:00 Appointment; SOLANGE HARRISON M.D. GIBSON, MARY CATHERINE, M.D. [facility] UTP [id number] [facility] 2016-09-23 10:30:00 2016-09-23 10:30:00 Appointment; VASCULAR, SE VASCULAR, SE [facility]TP [id number] [facility] 2016-09-20 09:00:00 2016-09-20 09:00:00 Appointment; VIRGIL POE M.D. HARLIN, STUART, M.D. [facility] [id number] [facility] 2016-09-20 08:00:00 2016-09-20 08:00:00 Appointment; VASCULAR, [place] [facility], [facility] UTP [id number] [facility] 2016-07-27 10:15:00 2016-07-27 10:15:00 Appointment; DONTE SINGH M.D. CATALANO, MARC, M.D. [facility] UTP [id number] [facility] 2016-07-26 09:00:00 2016-07-26 09:00:00 Appointment; VIRGIL POE M.D. HARLIN, STUART, M.D. [facility] UTP [id number] [facility] 2016-07-14 09:00:00 2016-07-14 09:00:00 Appointment; ASPENQUINCYDarlene SHANKARGriceldaLARISSA UTP UTP [id number] [facility] 2016-06-30 14:00:00 2016-06-30 14:00:00 Appointment; SOLANGE HARRISON M.D. GIBSON, MARY CATHERINE, M.D. [facility] UTP [id number] [facility] 2016-06-14 09:00:00 2016-06-14 09:00:00 Appointment; VIRGIL POE M.D. HARLIN, STUART, M.D. [facility] UTP [id number] [facility] 2016-05-24 11:00:00 2016-05-24 11:00:00 Appointment; IMELDA ARIAS M.D. BORTOLOTTI, JULIE, M.D. [facility] UTP [id number] [facility] 2016-04-20 10:15:00 2016-04-20 10:15:00 Appointment; DONTE SINGH M.D. CATALANO, MARC, M.D. [facility] UTP [id number] [facility] 2016-03-02 15:00:00 2016-03-02 15:00:00 Appointment; SOLANGE HARRISON M.D. GIBSON, MARY CATHERINE, M.D. [facility] UTP [id number] [facility] 2016-01-18 11:15:00 2016-01-18 11:15:00 Appointment; DONTE SINGH M.D. CATALANO, MARC, M.D. [facility] UTP [id number] [facility] 2015-12-23 13:00:00 2015-12-23 13:00:00 Appointment; KERRI CASTILLO M.D. SIMMONS, JOHN, M.D. [facility] UTP [id number] [facility] 2015-12-21 10:15:00 2015-12-21 10:15:00 Appointment; DONTE SINGH M.D. CATALANO, MARC, M.D. [facility] UTP [id number] [facility] 2015-12-08 10:00:00 2015-12-08 10:00:00 Appointment; IMELDA ARIAS M.D. BORTOLOTTI, JULIE, M.D. [facility] UTP [id number] [facility] 2015-12-01 13:45:00 2015-12-01 13:45:00 Appointment; DONTE SINGH M.D. CATALANO, MARC, M.D. [facility] UTP [id number] [facility] 2015-11-09 13:45:00 2015-11-09 13:45:00 Appointment; DONTE SINGH M.D. CATALANO, MARC, M.D. [facility] UTP [id number] [facility] 2015-11-04 09:15:00 2015-11-04 09:15:00 Appointment; IMELDA ARIAS M.D. BORTOLOTTI, JULIE, M.D. [facility] UTP [id number] [facility] 2015-10-28 16:00:00 2015-10-28 16:00:00 Appointment; SOLANGE HARRISON M.D. GIBSON, MARY CATHERINE, M.D. [facility] UTP [id number] [facility] 2015-10-27 13:30:00 2015-10-27 13:30:00 Appointment; IRWIN DANIELSON M.D. MCCRAY, COURTNEY, M.D. [facility] UTP [id number] [facility] 2015-10-14 08:30:00 2015-10-14 08:30:00 Appointment; IMELDA ARIAS M.D. BORTOLOTTI, JULIE, M.D. [facility] UTP [id number] [facility] 2015-10-08 13:45:00 2015-10-08 13:45:00 Appointment; DONTE SINGH M.D. CATALANO, MARC, M.D. [facility] UTP [id number] [facility] 2015-09-29 11:00:00 2015-09-29 11:00:00 Appointment; MOLLY BARRON N P BECK, SHERI, NP [facility] UTP [id number] [facility] 2015-09-23 11:45:00 2015-09-23 11:45:00 Appointment; DONTE SINGH M.D. CATALANO, MARC, M.D. [facility] UTP [id number] [facility] 2015-07-14 14:00:00 2015-07-14 14:00:00 Appointment; IRWIN DANIELSON M.D. MCCRAY, COURTNEY, M.D. [facility] UTP [id number] [facility] 2015-06-23 15:30:00 2015-06-23 15:30:00 Appointment; DONTE SINGH M.D. CATALANO, MARC, M.D. [facility] UTP [id number] [facility] 2015-06-23 11:30:00 2015-06-23 11:30:00 Appointment; SUNSHINE HANNA, ALARM TECHNICIAN SUNSHINE HANNA ALARM TECHNICIAN [facility] UTP [id number] [facility] 2015-06-18 09:00:00 2015-06-18 09:00:00 Appointment; IMELDA ARIAS M.D. BORTOLOTTI, JULIE, M.D. [facility] [id number] [facility] 2015-05-26 08:30:00 2015-05-26 08:30:00 Appointment; IMELDA ARIAS M.D. BORTOLOTTI, JULIE, M.D. [facility] UTP [id number] [facility] 2015-04-15 15:30:00 2015-04-15 15:30:00 Appointment; IRWIN DANIELSON M.D. MCCRAY, COURTNEY, M.D. [facility] UTP [id number] [facility] 2015-03-23 16:30:00 2015-03-23 16:30:00 Appointment; DONTE SINGH M.D. CATALANO, MARC, M.D. [facility] UTP [id number] [facility] 2015-01-06 10:45:00 2015-01-06 10:45:00 Appointment; KACIE MAGDALENO M.D. CRUMBIE, DAVID, M.D. [facility] UTP [id number] [facility] 2013-06-25 09:20:08 2013-06-25 09:20:08 Outpatient MHIE MHIE [id number] 2013-05-06 08:33:08 2013-05-06 08:33:08 Outpatient MHIE [facility]IE [id number] 2013-05-02 16:47:00 2013-05-02 16:47:00 Outpatient SONIA SCOTT [id number] 2013-04-10 16:23:30 2013-04-10 16:23:30 Outpatient SONIA SCOTT [id number] 2013-01-08 13:17:42 2013-01-08 13:17:42 Outpatient SONIA SCOTT [id number] 2013-01-03 16:47:31 2013-01-03 16:47:31 Outpatient SONIA SCOTT [id number] 2012-11-27 11:03:39 2012-11-27 11:03:38 Outpatient SONIA SCOTT [id number] 2012-11-26 17:16:38 2012-11-26 17:16:38 Outpatient SONIA SCOTT [id number] 2012-10-09 07:52:31 2012-10-09 07:52:10 Outpatient SONIA SCOTT [id number] 2012-09-27 05:48:09 2012-09-27 05:47:48 Outpatient SONIA SCOTT [id number] 2012-09-25 05:18:09 2012-09-25 05:17:43 Outpatient SONIA SCOTT [id number] Results Test Description Test Time Test Comments Results Result Comments Source [QL] COMPLEMENT COMP C3 + C4 2019-12-06 12:55:00 Test Item COMPLEMENT COMPONENT C3C (test code = COMPLEMENT COMPONENT C 3C) 151 mg/dl 83-193 N COMPLEMENT COMPONENT C4C (test code = COMPLEMENT COMPONENT C4C) 33 mg/dl 15-57 N [facility][QL] C-REACTIVE [id number] 12:55:00* Test Item Value Reference Range Interpretation Comments C-REACTIVE PROTEIN (test code = C-REACTIVE PROTEIN) 1.7 mg/L <8 .0 N [facility][QL] SED RATE BY MODIFIED [id number] 12:55:00* Test Item Value Reference Range Interpretation Comments SED RATE BY MODIFIED WESTERGREN (test code = SED RATE BY MODIFIED WESTERGREN) 28 mm/h < OR = 30 N [facility][QL] CBC (INCLUDES DIFF/PLT)2019-12-06 12:55:00* Test Item Value Reference Range Interpretation Comments WHITE BLOOD CELL COUNT (test code = WHITE BLOOD CELL COUNT) 5.6 {Thousand/u} 3.8-10.8 N RED BLOOD CELL COUNT (test code = RED BLOOD CELL COUNT) 4.00 {Million/uL} 3.80-5.10 N HEMOGLOBIN; Normal (test code = 76018-6) 12.2 g/dl 11.7-15.5 N HEMATOCRIT; Normal (test code = 4544-3) 37.1 % 35.0-45.0 N MCV; Normal (test code = 787-2) 92.8 fL 80.0-100.0 N MCHC; Normal (test code = 74122-9) 32.9 g/dl 32.0-36.0 N RDW; Normal (test code = 788-0) 12.5 % 11.0-15.0 N PLATELET COUNT; Below Low Threshold (test code = 777-3) 120 {Thousand/u} 140-400 MPV; Above High Threshold (test code = 66888-8) 13.3 fL 7.5-12 .5 ABSOLUTE NEUTROPHILS (test code = ABSOLUTE NEUTROPHILS) 3063 {cells/uL} 3351-4062 N ABSOLUTE LYMPHOCYTES (test code = ABSOLUTE LYMPHOCYTES) 1960 {cells/uL} 850-3900 N ABSOLUTE MONOCYTES (test code = ABSOLUTE MONOCYTES) 465 {cells/uL} 200-950 N ABSOLUTE EOSINOPHILS (test code = ABSOLUTE EOSINOPHILS) 39 {cells/u L} 15-500 N ABSOLUTE BASOPHILS (test code = ABSOLUTE BASOPHILS) 73 {cells/uL} 0 -200 N NEUTROPHILS (test code = NEUTROPHILS) 54.7 % N LYMPHOCYTES (test code = LYMPHOCYTES) 35.0 % N MONOCYTES; Normal (test code = 14967-1) 8.3 % N EOSINOPHILS; Normal (test code = 09385-2) 0.7 % N BASOPHILS; Normal (test code = 40963-1) 1.3 % N [facility][QL] VITAMIN D, 25-HYDROXY, LC/MS/[id number] 12:55:00* Test Item Value Reference Range Interpretation Comments VITAMIN D,25-OH,TOTAL,IA (test code = VITAMIN D,25-OH,TOTAL,IA) 56 ng/ml 30-100 N Vitamin D Status 25-OH Vitamin D : Deficiency: <20 ng/mLInsufficiency: 20 - 29 ng/mLOptimal: > or = 30 ng/mL For 25-OH Vitamin D testing on patients on D2-supplementation and patients for whom quantitation of D2 and D3 fractions is required, the QuestAssureD(TM)25-OH VIT D, (D2,D3), LC/MS/MS is recommended: order code 93204 (patients >2yrs).See Note 1 Note 1 For additional information, please refer to [email or web address] (This link is being provided for informational/educational purposes only.) [facility] [id number] 12:30:00EXAM: XR RIGHT SCAPULA 2 VIEWSDATE: 12/06/2019 12:23 CDTINDICATION: - M89.8X1 Other specified disorders of bone, shoulder, M15.9polyarticular arthritis, unspecifiedCOMPARISON: None.TECHNIQUE: AP and lateral views of the scapulaFINDINGS: No acute fracture is identified. Degenerative changes theglenohumeral joint is noted.Acromioclavicular joint degenerative changes are also present.No soft tissue abnormality is identified.IMPRESSION: No acute abnormality. Degenerative changes of the glenohumeral andacromioclavicular joints.--Read by: Pam Ham MDDictated Date/time: 12/06/19 14:35Electronically Signed by: Pam Ham MD 12/05/2013:36FINAL REPORTBrigham City Community HospitalXR Ribs unilateral [id number] 12:30:00EXAM: XR RIGHT RIB 2 VIEWS AND PA CHESTDATE: 12/06/2019 12:22 CDTINDICATION: - R07.81 Pleurodynia, M15.9 Polyosteoarthritis, unspecifiedCOMPARISON: None.TECHNIQUE: PA chest; Frontal and oblique views of the ribsFINDINGS: No displaced rib fracture or other acute bony abnormality isidentified. Incidental multilevel costochondral calcification is present.The lungs are clear without pneumothorax. The heart size is within normallimits.IMPRESSION: No acute abnormality.--Read by: Pam Ham MDDictated Date/time: 12/06/19 15:13Electronically Signed by: Pam Ham MD 12/05/2014:13FINAL REPORTLDS Hospital Physicians- CTA [id number] 17:42:00 Name: KSY CATALAN [facility] : 1945 Age/S: 73 / F Becky Boudreaux Unit #: [id number] Loc: [place] [address] Phys: Malik Hernandez MD Acct: [id number] Dis Date: Status: REG CLI PHONE #: [phone] Exam Date: 11/27/2019 1203 FAX #: [phone] Reason: CEREBRAL ANEURYSM EXAMS: CPT CODE: [id number] CTA HEAD 30754 HISTORY: CEREBRAL ANEURYSM TECHNIQUE: Cerebral CT angiography was acquired in the axial plane after bolus IV administration of iodinated contrast. Multiplanar, maximum intensity projection (MIP), and volume rendered reconstructions were created on the 3-D workstation. Automated exposure control for dose reduction. COMPARISON: Noncontrast CT scan of the brain June 09, 2018 FINDINGS: Atherosclerotic vascular calcification and luminal irregularity of the bilateral cavernous ICA segments. Bilateral petrous and supraclinoid ICA segments are patent. Normal enhancement of the bilateral ophthalmic arteries. Bilateral A1 and distal SERGEI segments are patent. Anterior communicating artery is present. Bilateral M1 and distal MCA branches are patent. Additional appears to surround of a prior aneurysm involving what appears to be the anterior communicating artery. Bilateral distal vertebral arteries are patent. Basilar artery is patent. Bilateral PICAs and SCAs are patent. Normal appearance of the basilar tip. Bilateral P1 and distal BELL SPINNER SOUSAPHONES segments are patent. 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 No aneurysm. Dural venous sinuses and proximal internal jugular veins are patent. Postsurgical changes of craniotomy involving the right frontal bone. IMPRESSION: No intracranial aneurysm is appreciated. 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 Location: [facility] at 1742 Reported and signed by: Aamir Jaramillo MD PAGE 1 Signed Report (CONTIN UED) Name: SKY CATALAN [facility] : 1945 Age/S: 73 / F Becky Boudreaux Unit #: [id number] Loc: [place] [address] Phys: Malik Potter MD Acct: [id number] Dis Date: Status: REG CLI PHONE #: [phone] Exam Date: 11/27/2019 1203 FAX #: Reason: CEREBRAL ANEURYSM EXAMS: CPT CODE: [id number] CTA HEAD 75031 <Continued> CC: Matilde Arias MD; Malik Hernandez MD Technologist:Airam Dorsey,RT(R),CT CTDI: DLP: Trnscb Date/Time: 11/27/2019 (1741) t.SDR.RR31 Orig Print D/T: S: 11/27/2019 (1744) PAGE 2 Signed Report CREATININE W ESTIMATED [id number] 10:57:00* Test Item Value Reference Range Interpretation Comments BEDSIDE CREATININE (test code = CREATBED) mg/dL 0.7-1.3 L GLOMERULAR FILTRATION RATE POC (test code = GFRBED) 202 >6 0 H CREATININE W ESTIMATED [id number] 10:57:00* Test Item Value Reference Range Interpretation Comments BEDSIDE CREATININE (test code = CREATBED) 0.32 mg/dL 0.7-1.3 L GLOMERULAR FILTRATION RATE POC (test code = GFRBED) > 60 >6 0 H Previously reported result: 202 Edited by: MARIA LUISA on 11/27/19:362298 1057: GFRBED previously reported as: 202 H MA Digital Mammo Screen Mauricio w roberta [id number] 14:38:00BILATERAL DIGITAL SCREENING MAMMOGRAM 3D/2D WITH CAD: 11/09/2019CLINICAL: Z12.39 Encounter For Other Screening For Malignant Neoplasm UnEzcytaf88.39 Encounter For Other Screening For Malignant Neoplasm OfBreast/Routine. Current study was evaluated with a Computer Aided Detection (CAD) system. COMPARISON:Comparison is made to exams dated: 11/05/2018 mammogram, 10/17/2017mammogram, 07/30/2016 mammogram, 07/24/2015 mammogram, 06/30/2014 mammogram, and06/23/2014 mammogram - [facility]. TECHNIQUE: Digital Breast Tomosynthesis was performed and utilize d forInterpretation. Current study was also evaluated with a Computer AidedDetec tion (CAD) system.FINDINGS:The tissue of both breasts is heterogeneously dense, which could obscuredetection of small masses. There is a benign calcification in the right breast. No significant masses, calcifications, or other findings are seen in eitherbreast. There has been no significant interval change.IMPRESSION: BENIGNRECOMMENDATION:There is no mammographic evidence of malignancy. A 1 yearsc reening mammogram is recommended.(11/09/2020) This exam was interpreted atDD02 3906 for AIME Joshua 15. Louise Herr M.D. ms/penrad:11/11/2019 09:00: 40 Summer Intern(s): Matilde Morales [facility] tenzin t: BI-RADS 1/2 Dense Mammogram BI-RADS: 2 Benign--Read by: Louise Herr DDictated Date/time: 11/11/19 09:00Electronically Signed by: Louise Herr 11/10/2008:00FINAL REPORTUnBeaver Valley Hospital Physicians [QL] LIPID [id number] 09:39:00* Test Item Value Reference Range Interpretation Comments CHOLESTEROL, TOTAL; Normal (test code = 2093-3) 170 mg/dl <200 N HDL CHOLESTEROL; Below Low Threshold (test code = 2085-9) 48 mg/dl > OR = 50 TRIGLYCERIDES; Normal (test code = 2571-8) 117 mg/dl <150 N LDL-CHOLESTEROL; Above High Threshold (test code = 32131-9) 101 {MG/DL GARFIELD} Reference range: <100 Desirable range <1 00 mg/dL for primary prevention; <70 mg/dL for patients with CHD or diabetic patients with > or = 2 CHD risk factors. LDL-C is now calculated using the Angie calculation, which is a validated novel method providing better accuracy than the Friedewald equation in the estimation of LDL-C. Samy AJRAMILLO et al. CALVIN. 2013;310(19): 5617-2283 (http ://education.[employer].com/faq/SEL409) CHOL/HDLC RATIO (test code = CHOL/HDLC RATIO) 3.5 {CALC} <5.0 N NON HDL CHOLESTEROL (test code = NON HDL CHOLESTEROL) 122 {MG/DL C AL} <130 N For patients with diabetes plus 1 major ASCVD risk factor, treating to a non-HDL-C goal of <100 mg/dL (LDL-C of <70 mg/dL) is considered a therapeutic option. [facility][QL] CMP W/[id number] 09:39:00* Test Item Value Reference Range Interpretation Comments GLUCOSE; Normal (test code = 1547-9) 96 mg/dl 65-99 N Fasting reference interval UREA NITROGEN (BUN) (test code = UREA NITROGEN (BUN)) 13 mg/dl 7-25 N CREATININE (test code = CREATININE) 0.56 mg/dl 0.60-0.93 For patients >49 years of age, the reference limitfor Creatinine is approximately 13% higher for peopleidentified as -Fijian. eGFR NON-AFR. LUXEMBOURGER (test code = eGFR NON-AFR. LUXEMBOURGER) 93 {ML/MIN/1.7} > OR = 60 N eGFR (test code = eGFR ) 10 7 {ML/MIN/1.7} > OR = 60 N BUN/CREATININE RATIO (test code = BUN/CREATININE RATIO) 23 {CALC} 6-22 SODIUM (test code = SODIUM) 146 mmol/L 135-146 N POTASSIUM (test code = POTASSIUM) 4.9 mmol/L 3.5-5.3 N CHLORIDE (test code = CHLORIDE) 110 mmol/L 98-110 N CARBON DIOXIDE (test code = CARBON DIOXIDE) 33 mmol/L 20-32 CALCIUM (test code = CALCIUM) 10.0 mg/dl 8.6-10.4 N PROTEIN, TOTAL (test code = PROTEIN, TOTAL) 7.1 g/dl 6.1-8.1 N ALBUMIN (test code = ALBUMIN) 4.4 g/dl 3.6-5.1 N GLOBULIN (test code = GLOBULIN) 2.7 {G/DL CALC} 1.9-3.7 N ALBUMIN/GLOBULIN RATIO (test code = ALBUMIN/GLOBULIN RATIO) 1.6 {CALC} 1.0-2.5 N BILIRUBIN, TOTAL; Normal (test code = 67250-0) 0.4 mg/dl 0.2-1.2 N ALKALINE PHOSPHATASE (test code = ALKALINE PHOSPHATASE) 81 u/l 37-153 N AST; Normal (test code = 1916-6) 14 u/l 10-35 N ALT; Normal (test code = 1742-6) 10 u/l 6-29 N [facility][QL] TSH, 3RD [id number] 09:39:00* Test Item Value Reference Range Interpretation Comments TSH; Normal (test code = 83202-4) 2.66 {MIU/L} 0.40-4.50 N [facility] SPINE 4-5 VIEW - [id number] 15:14:00 [place] [address] Patient Name: SKY CATALAN MR #: [id number] : 1945 Age/Sex: 73/F Req #: [id number] Adm Physician: Ordered by: BAY ALSTON MD Report #: [id number] Location: [facility] Room/Bed: Procedure: [id number] HOPD/C SPINE 4-5 VIEW - HOPD Exam Date: 08/08/19 Exam Time: 151 REPORT STATUS: Signed EXAM INATION: C SPINE 4-5 VIEW - HOPD INDICATION: Neck pain, left-sided num bness COMPARISON: None FINDINGS: No acute fracture. Alignmen t is anatomic. Vertebral body heights are maintained. Mild multilevel degenera tive changes of the cervical spine with small osteophyte formation. Prevertebr al soft tissues are normal in thickness. IMPRESSION: Minimal degenerativ e changes of the cervical spine. No acute injury. Signed by: Jluis Hollis MD on 08/08/2019 3:16 PM Dictated By: JLUIS HOLLIS MD 15 Transcribed By: JAYLA on 08/08/191515 COPY TO: BAY ALSTON MD CT BRAIN OZ-[id number] 15:09:00 [facility] [address] [place] [address] Patient Name: SKY CATALAN MR #: [id number] : 1945 Age/Sex: 73/F Req #: [id number] Adm Physician: Ordered by: BAY ALSTON MD Report #: [id number] Location: [facility] Room/Bed: Procedure: [id number] HOPD/CT BRAIN WO-HOPD Exam Date: 08/08/19 Exam Time: 1510 REPORT STATUS: Signed CT BRAIN WO -HOPD HISTORY: Numbness from wrist COMPARISON: Report from head CT da mj 05/27/2015 TECHNIQUE: Noncontrast axial scans were obtained from skull base to the vertex. Coronal and sagittal reconstructions obtained from the a xia data. One or more of the following dose reduction techniques were used: Automated exposure control, adjustment of the mA and/or kV according to patien t size, and/or utilization of iterative reconstruction technique. DISCUSS ION: Scalp/Skull: Right pterional craniotomy changes are present. Right fro ntal patricia hole is also present. Brain sulci: Overall appropriate for patient 's age. Ventricles: Normal in size and configuration. No hydrocephalus. 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 Associate d streak artifacts obscure some details. Otherwise, no masses or fluid collect ions. Carotid siphon calcifications are present. Parenchyma: Focal ence phalomalacia in the right superior frontal gyrus may be from remote infarct. Mild periventricular white matter hypodensities are likely chronic microvascu lar ischemic changes. Otherwise, no mass, hemorrhage, or large vascular territ ory acute infarct. Dural sinuses: No abnormal densities. Sellar/Suprasel lar region: Otherwise, grossly unremarkable. Skull base: Intact. Incidental findings: Bilateral ocular lens replacement. IMPRESSION: 1. No acute intracranial abnormalities. 2. 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 3. Focal right superior frontal gyrus encephalomal acia may be from remote infarct or prior catheter tract. 4. Mild supratento rial chronic microvascular ischemic change. Signed by: Dr. Dmitri Nath M.D. on 08/08/2019 3:17 PM Dictated By: DMITRI NATH MD Electronicall y Signed By: DMITRI NATH MD on 08/08/191516 Transcribed By: JAYLA on 1516 COPY TO: BAY ALSTON MD XRAY Spine cervical 2 or 3 view [id number] 13:53:00Exam: Spine cervical 2 or 3 view DXReason for Exam: CervicalgiaComparison Exam: NoneDiscussion:On lateral view, the cervical spine is seen from the C1 vertebral body leveldown through the C6/C7 junction. The C7/T1 junction is not adequately seen onlateral view. Vertebral body heights are maintained. No spondylolisthesis. Nosuspicious osteoblastic or osteolytic lesions. Prevertebral soft tissue iswithin normal limits. Lateral masses of C1 and dens of C2 appear intact.Please note that a cervical spine x- ray cannot rule out ligamentous injuries orspinal cord abnormalities. Visualized portions of the lung apices areunremarkable.Impression:1. Visualized portions of the cervical spine are unremarkable.--Read by: Bryan Salinas MDDictated Date/time: 07/29/19 16:56Electronically Signed by: Bryan Salinas MD 07/28/2016:07FINAL REPORTUnBeaver Valley Hospital Physicians[QL] [facility] W/[id number] 11:08:00* Test Item Value Reference Range Interpretation Comments GLUCOSE; Normal (test code = 1547-9) 80 mg/dl 65-139 N Non-fasting reference interval UREA NITROGEN (BUN) (test code = UREA NITROGEN (BUN)) 10 mg/dl 7-25 N CREATININE (test code = CREATININE) 0.57 mg/dl 0.60-0.93 For patients >49 years of age, the reference limitfor Creatinine is approximately 13% higher for peopleidentified as -Fijian. eGFR NON- (test code = eGFR NON-SUNDAR N LUXEMBOURGER) 92 {ML/MIN/1.7} > OR = 60 N eGFR (test code = eGFR ) 10 7 {ML/MIN/1.7} > OR = 60 N BUN/CREATININE RATIO (test code = BUN/CREATININE RATIO) 18 {CALC} 6-22 N SODIUM (test code = SODIUM) 143 mmol/L 135-146 N POTASSIUM (test code = POTASSIUM) 4.8 mmol/L 3.5-5.3 N CHLORIDE (test code = CHLORIDE) 106 mmol/L 98-110 N CARBON DIOXIDE (test code = CARBON DIOXIDE) 30 mmol/L 20-32 N CALCIUM (test code = CALCIUM) 9.7 mg/dl 8.6-10.4 N PROTEIN, TOTAL (test code = PROTEIN, TOTAL) 6.8 g/dl 6.1-8.1 N ALBUMIN (test code = ALBUMIN) 4.3 g/dl 3.6-5.1 N GLOBULIN (test code = GLOBULIN) 2.5 {G/DL CALC} 1.9-3.7 N ALBUMIN/GLOBULIN RATIO (test code = ALBUMIN/GLOBULIN RATIO) 1.7 {CALC} 1.0-2.5 N BILIRUBIN, TOTAL; Normal (test code = 40525-4) 0.4 mg/dl 0.2-1.2 N ALKALINE PHSPHATASE (test code = ALKALINE PHSPHATASE) 86 u/l 37-153 N AST; Normal (test code = 1916-6) 15 u/l 10-35 N ALT; Normal (test code = 1742-6) 8 u/l 6-29 N [facility][QL] SED RATE BY MODIFIED [id number] 11:08:00* Test Item Value Reference Range Interpretation Comments SED RATE BY MODIFIED WESTERGREN (test code = SED RATE BY MODIFIED WESTERGREN) 22 mm/h < OR = 30 N [facility][QL] CBC (INCLUDES DIFF/PLT)2019-07-19 11:08:00* Test Item Value Reference Range Interpretation Comments WHITE BLOOD CELL COUNT (test code = WHITE BLOOD CELL COUNT) 5.0 {Thousand/u} 3.8-10.8 N RED BLOOD CELL COUNT (test code = RED BLOOD CELL COUNT) 4.05 {Million/uL} 3.80-5.10 N HEMAGLOBIN; Normal (test code = 22743-1) 12.2 g/dl 11.7-15.5 N HEMATOCRIT; Normal (test code = 4544-3) 38.6 % 35.0-45.0 N MCV; Normal (test code = 787-2) 95.3 fL 80.0-100.0 N MCHC; Below Low Threshold (test code = 89566-1) 31.6 g/dl 32.0-3 6.0 N RDW; Normal (test code = 788-0) 13.4 % 11.0-15.0 N PLATELET COUNT; Below Low Threshold (test code = 777-3) 115 {Thousand/u} 140-400 MPV; Above High Threshold (test code = 79806-3) 13.0 fL 7.5-12 .5 ABSOLUTE NEUTROPHILS (test code = ABSOLUTE NEUTROPHILS) 2680 {cells/uL} 8696-2672 N ABSOLUTE LYMPHOCYTES (test code = ABSOLUTE LYMPHOCYTES) 1765 {cells/uL} 850-3900 N ABSOLUTE MONOCYTES (test code = ABSOLUTE MONOCYTES) 445 {cells/uL} 200-950 N ABSOLUTE EOSINOPHILS (test code = ABSOLUTE EOSINOPHILS) 50 {cells/u L} 15-500 N ABSOLUTE BASOPHILS (test code = ABSOLUTE BASOPHILS) 60 {cells/uL} 0 -200 N NEUTROPHILS (test code = NEUTROPHILS) 53.6 % N LYMPHOCYTES (test code = LYMPHOCYTES) 35.3 % N MONOCYTES; Normal (test code = 08651-1) 8.9 % N EOSINOPHILS; Normal (test code = 53421-2) 1.0 % N BASOPHILS; Normal (test code = 36773-0) 1.2 % N [facility] [id number] 10:07:00 [place] [address] Patient Name: SKY CATALAN MR #: [id number] : 12/1945 Age/Sex: 73/F Req #: [id number] Adm Physician: Ordered by: YADIEL COTE MD Report #: [id number] Location: CT Room/Bed: Procedure: [id number] C T/CT ABDOMEN/PELVIS WOW Exam Date: 03/27/19 Exam Bogdan e: 0840 REPORT STATUS: Signed CT of the abdomen and pelvis, with and without contrast, 03/27/2019. History: Hematuria.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 = RBC) 4.30 mill/mm3 3.7-5.2 N HEMOGLOBIN (test code = HGB) 12.5 gram/dL 11.5-15.5 N HEMATOCRIT (test code = HCT) 41.0 % 36.0-46.0 N MEAN CELL VOLUME (test code = MCV) 95.3 fL 80-98 N MEAN CELL HGB (test code = MCH) 29.1 picogram 27.0-33.0 N MEAN CELL HGB CONCETRATION (test code = MCHC) 30.5 gram/dL 33.0-36. 0 L RED CELL DISTRIBUTION WIDTH (test code = RDW) 13.3 % 11.6-16. 2 N PLATELET COUNT (test code = PLT) 132 K/mm3 150-450 L MEAN PLATELET VOLUME (test code = MPV) 12.1 fL 6.7-11.0 H BASIC METABOLIC [id number] 21:44:00* Test Item Value Reference Range Interpretation Comments SODIUM (test code = NA) 142 mmol/L 136-145 N POTASSIUM (test code = K) 3.4 mmol/L 3.5-5.1 L CHLORIDE (test code = CL) 107.0 mmol/L 98-107 N CARBON DIOXIDE (test code = CO2) mmol/L 21-32 ANION GAP (test code = GAP) 10-20 GLUCOSE (test code = GLU) mg/dL 74-106 BLOOD UREA NITROGEN (test code = BUN) mg/dL 7-18 GLOMERULAR FILTRATION RATE (test code = GFR) mL/min >=60 CREATININE (test code = CREAT) mg/dL 0.55-1.02 BUN/CREATININE RATIO (test code = BUN/CREA) 10-20 CALCIUM (test code = CA) mg/dL 8.5-10.1 [id number] 21:44:00* Test Item Value Reference Range Interpretation Comments TROPONIN-I (test code = TROPI) ng/mL 0-0.045 CBC W/O [id number] 21:41:00* Test Item Value Reference Range Interpretation Comments WHITE BLOOD CELL (test code = WBC) K/mm3 4.5-12.5 RED BLOOD CELL (test code = RBC) mill/mm3 3.7-5.2 HEMOGLOBIN (test code = HGB) 12.5 gram/dL 11.5-15.5 N HEMATOCRIT (test code = HCT) 41.0 % 36.0-46.0 N MEAN CELL VOLUME (test code = MCV) fL 80-98 MEAN CELL HGB (test code = MCH) picogram 27.0-33.0 MEAN CELL HGB CONCETRATION (test code = MCHC) gram/dL 33.0-36. 0 RED CELL DISTRIBUTION WIDTH (test code = RDW) % 11.6-16. 2 PLATELET COUNT (test code = PLT) K/mm3 150-450 MEAN PLATELET VOLUME (test code = MPV) fL 6.7-11.0 - CT HEAD/BRAIN W/O [id number] 21:41:00 Name: SKY CATALAN [facility] : 1945 Age/S: 72 / F [address] [facility] Unit #: [id number] Loc: [place] [address] Phys: Saroj Casas MD Acct: [id number] Dis Date: Status: REG ER PHONE #: [phone] Exam Date: 06/09/20182129 FAX #: [phone] Reason: L arm numb, h/o ICH EXAMS: CPT CODE: [id number] CT HEAD/BRAIN W/O CONT 49735 HISTORY: Left arm numbness and prior hemorrhage. COMPARISON: July 20, 2017. CT brain without contrast: Automated exposure control. No acute intracranial bleeds or extra-axial collections are noted. No acute territorial vascular infarction is noted. 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 The sulci, gyri, ventricles and trujillo barachnoid spaces and the basilar cisterns are normal for patient's age. N o herniation or hydrocephalus or midline shift is noted. Mil d periventricular ischemic gliosis is noted. Age-appropriate atrophy [...] Joe Coffey M.D. CC: Saroj Casas MD Technologist:Fredis Dorsey RT(R)(CT) CTDI: DLP: Trnscb Date/Time: 06/09/2018 (214 ) t.SDR.TH4 Orig Print D/T: S: 06/09/2018 (2145) C TDI: DLP: PAGE 1 Signed Report - XR CHEST 1 [id number] 21:33:00 FAX: Saroj Casas MD [phone] Circle: B St: REG Name: Mary PABLOVENKATESHSKY [facility] : [birth year] Age/S: 72/F [address] [facility] Unit #: [id number] Loc: [place] [address] Phys: Saroj Casas MD Acct: [id number] Dis Date: Status: REG ER PHONE #: [phone] Exam Date: 06/09/20182127 FAX #: [phone] Reason: CHEST PAIN EXAMS: CPT CODE: [id number] XR CHEST 1 V 90173 HISTORY: Chest pain. COMPARISON: None available. No acute infiltrates, effusion or con gestion is noted. Bullous changes and scarring. The cardiac and mediastinal silhouette are within normal limits. IMPRESSIO N: No acute infiltrates, effusion or congestion. at 2132 Reported and signed by: Thomas Palma C: Saroj Casas MD Technologist: Josee Hurtado Trnscrd Date/Time/By: 06/09/2018 (2132) : By: JnTH4 Orig Print D/T: S: 06/09/2018 (2135) PAGE 1 Signed Report [Q] FECAL GLOBIN BY [id number] 00:00:00* Test Item Value Reference Range Interpretation Comments FECAL GLOBIN BY IMMUNOCHEMISTRY (test code = 80977-0) See Comment FECAL GLOBIN BY IMMUNOCHEMISTRY MICRO NUMBER: [id number] TEST STATUS: FINAL SPECIMEN SOURCE: [facility]) FOBT TEST CARD SPECIMEN QUALITY: ADEQUATE RESULT: Not Detected [facility] Thyroid [id number] 11:48:00EXAM:Thyroid ultrasound.CLINICAL HX: Pharyngeal esophageal dysphagia. 787.24. R13.14. Difficulty swallowing.TECHNIQUE:Grayscale and doppler sonogram of the thyroid gland.COMPARISON:Thyroid ultrasound: None.FINDINGS:Thyroid gland measurements:-- Right lobe: 3.9 x 1.3 x 1.4 cm.-- Left lobe: 4.1 x 1.4 x 0.9 cm.-- Isthmus: 0.3 cm.Thyroid gland parenchyma:-- Size: Within normal limits.-- Echotexture: H omogeneous.-- Vascularity: Within normal limits.Thyroid nodule(s): None.Lymph no de(s): No visualized suspicious lymphadenopathy.Other: None.IMPRESSION:1. Unrema rkable thyroid ultrasound. Reference : Aung EDWARDS, et al. ACR Thyroid Imaging, Reporting and Data System(TI-RADS): Dave umana Paper of the ACR TI-RADS Committee. JACR. 2017; 14(5):587595.--Read by: Beau Clark MDDictated Date/time: 03/13/18 12:09Electronically Sherrie d by: Beau Casas MD 03/13/1911:10FINAL REPORT [facility] METABOLIC [id number] 15:07:00* Test Item Value Reference Range Interpretation Comments SODIUM (test code = NA) 141 mmol/L 136-145 N POTASSIUM (test code = K) 4.2 mmol/L 3.5-5.1 N CHLORIDE (test code = CL) 106.0 mmol/L 98-107 N CARBON DIOXIDE (test code = CO2) 28.0 mmol/L 21-32 N ANION GAP (test code = GAP) 11.2 10-20 N GLUCOSE (test code = GLU) 90 mg/dL 74-106 N BLOOD UREA NITROGEN (test code = BUN) 9 mg/dL 7-18 N GLOMERULAR FILTRATION RATE (test code = GFR) > 60 mL/min >=60 Estimated GFR by using Modified MDRD formula.Chronic kidney disease is defined as either kidney damageor GFR <60 mL/min/1.73 m2 for >3 months. CREATININE (test code = CREAT) 0.40 mg/dL 0.55-1.02 L Note change in reference range due to change in reagent. BUN/CREATININE RATIO (test code = BUN/CREA) 20.0 10-20 N CALCIUM (test code = CA) 9.0 mg/dL 8.5-10.1 N HEPATIC FUNCTION [id number] 15:07:00* Test Item Value Reference Range Interpretation Comments TOTAL PROTEIN (test code = PROT) 7.5 gram/dL 6.4-8.2 N ALBUMIN (test code = ALB) 3.9 g/dL 3.4-5.0 N GLOBULIN (test code = GLOB) 3.6 gram/dL 2.7-4.2 N ALBUMIN/GLOBULIN RATIO (test code = A/G) 1.1 0.75-1.50 N BILIRUBIN TOTAL (test code = BILT) 0.40 mg/dL 0.0-1.0 N BILIRUBIN DIRECT (test code = BILD) 0.10 mg/dL 0.0-0.20 N SGOT/AST (test code = AST) 18 IUnit/L 15-37 N SGPT/ALT (test code = ALT) 14 IUnit/L 12-78 N ALKALINE PHOSPHATASE TOTAL (test code = ALKP) 81 IUnit/L 45-117 N Note change in reference range due to change in reagent. [id number] 15:07:00* Test Item Value Reference Range Interpretation Comments LIPASE (test code = LIP) 133 U/L 73.0-393.0 N [id number] 15:07:00* Test Item Value Reference Range Interpretation Comments TROPONIN-I (test code = TROPI) <0.015 ng/mL 0-0.045 N CBC W/O [id number] 15:04:00* Test Item Value Reference Range Interpretation Comments WHITE BLOOD CELL (test code = WBC) 5.0 K/mm3 4.5-12.5 N RED BLOOD CELL (test code = RBC) 4.47 mill/mm3 3.7-5.2 N HEMOGLOBIN (test code = HGB) 13.3 gram/dL 11.5-15.5 N HEMATOCRIT (test code = HCT) 41.6 % 36.0-46.0 N MEAN CELL VOLUME (test code = MCV) 93.1 fL 80-98 N MEAN CELL HGB (test code = MCH) 29.8 picogram 27.0-33.0 N MEAN CELL HGB CONCETRATION (test code = MCHC) 32.0 gram/dL 33.0-36. 0 L RED CELL DISTRIBUTION WIDTH (test code = RDW) 13.3 % 11.6-16. 2 N PLATELET COUNT (test code = PLT) 115 K/mm3 150-450 L MEAN PLATELET VOLUME (test code = MPV) 12.5 fL 6.7-11.0 H BASIC METABOLIC [id number] 14:53:00* Test Item Value Reference Range Interpretation Comments SODIUM (test code = NA) 141 mmol/L 136-145 N POTASSIUM (test code = K) 4.2 mmol/L 3.5-5.1 N CHLORIDE (test code = CL) 106.0 mmol/L 98-107 N CARBON DIOXIDE (test code = CO2) mmol/L 21-32 ANION GAP (test code = GAP) 10-20 GLUCOSE (test code = GLU) mg/dL 74-106 BLOOD UREA NITROGEN (test code = BUN) mg/dL 7-18 GLOMERULAR FILTRATION RATE (test code = GFR) mL/min >=60 CREATININE (test code = CREAT) mg/dL 0.55-1.02 BUN/CREATININE RATIO (test code = BUN/CREA) 10-20 CALCIUM (test code = CA) mg/dL 8.5-10.1 HEPATIC FUNCTION [id number] 14:53:00* Test Item Value Reference Range Interpretation Comments TOTAL PROTEIN (test code = PROT) gram/dL 6.4-8.2 ALBUMIN (test code = ALB) g/dL 3.4-5.0 GLOBULIN (test code = GLOB) gram/dL 2.7-4.2 ALBUMIN/GLOBULIN RATIO (test code = A/G) 0.75-1.50 BILIRUBIN TOTAL (test code = BILT) mg/dL 0.0-1.0 BILIRUBIN DIRECT (test code = BILD) mg/dL 0.0-0.20 SGOT/AST (test code = AST) IUnit/L 15-37 SGPT/ALT (test code = ALT) IUnit/L 12-78 ALKALINE PHOSPHATASE TOTAL (test code = ALKP) IUnit/L 45-117 [id number] 14:53:00* Test Item Value Reference Range Interpretation Comments LIPASE (test code = LIP) U/L 73.0-393.0 [id number] 14:53:00* Test Item Value Reference Range Interpretation Comments TROPONIN-I (test code = TROPI) ng/mL 0-0.045 URINALYSIS [id number] 14:25:00* Test Item Value Reference Range Interpretation Comments UA COLOR (test code = COLU) YELLOW YELLOW UA APPEARANCE (test code = APPU) CLEAR CLEAR UA GLUCOSE DIPSTICK (test code = DGLUU) NEGATIVE mg/dL NEGATIVE UA BILIRUBIN DIPSTICK (test code = BILU) NEGATIVE mg/dL NEGATIVE UA KETONE DIPSTICK (test code = KETU) Negative mg/dL NEGATIVE UA SPECIFIC GRAVITY (test code = SGU) 1.020 1.001-1.035 UA BLOOD DIPSTICK (test code = DANIELLE) 1+ (Small) NEGATIVE A UA PH DIPSTICK (test code = LIZ) 5.0 5.0-8.0 UA PROTEIN DIPSTICK (test code = PROU) Negative mg/dL NEGATIVE UA UROBILINIOGEN DIPSTICK (test code = URO) NEGATIVE mg/dL NEGATIVE UA NITRITE DIPSTICK (test code = HELENE) NEGATIVE NEGATIVE UA LEUKOCYTE ESTERASE W REFLEX (test code = LEUUR) TRACE NEG ATIVE A UA WBC (test code = WBCU) 0-5 #/HPF 0-5 UA RBC (test code = RBCU) 0-2 #/HPF 0-5 UA EPITHELIAL CELLS (test code = EPIU) FEW per HPF FEW UA HYALINE CAST (test code = HYALU) 0-2 #/LPF 0-5 UA MUCUS (test code = MUCU) FEW #/LPF FEW Urine Source? Clean CatchURINALYSIS [id number] 14:24:00* Test Item Value Reference Range Interpretation Comments UA COLOR (test code = COLU) YELLOW YELLOW UA APPEARANCE (test code = APPU) CLEAR CLEAR UA GLUCOSE DIPSTICK (test code = DGLUU) NEGATIVE mg/dL NEGATIVE UA BILIRUBIN DIPSTICK (test code = BILU) NEGATIVE mg/dL NEGATIVE UA KETONE DIPSTICK (test code = KETU) Negative mg/dL NEGATIVE UA SPECIFIC GRAVITY (test code = SGU) 1.020 1.001-1.035 UA BLOOD DIPSTICK (test code = DANIELLE) 1+ (Small) NEGATIVE A UA PH DIPSTICK (test code = LIZ) 5.0 5.0-8.0 UA PROTEIN DIPSTICK (test code = PROU) Negative mg/dL NEGATIVE UA UROBILINIOGEN DIPSTICK (test code = URO) NEGATIVE mg/dL NEGATIVE UA NITRITE DIPSTICK (test code = HELENE) NEGATIVE NEGATIVE UA LEUKOCYTE ESTERASE W REFLEX (test code = LEUUR) TRACE NEG ATIVE A UA WBC (test code = WBCU) 0-5 #/HPF 0-5 UA RBC (test code = RBCU) 0-2 #/HPF 0-5 UA EPITHELIAL CELLS (test code = EPIU) FEW per HPF FEW Urine Source? Clean CatchURINALYSIS [id number] 14:23:00* Test Item Value Reference Range Interpretation Comments UA COLOR (test code = COLU) YELLOW YELLOW UA APPEARANCE (test code = APPU) CLEAR CLEAR UA GLUCOSE DIPSTICK (test code = DGLUU) NEGATIVE mg/dL NEGATIVE UA BILIRUBIN DIPSTICK (test code = BILU) NEGATIVE mg/dL NEGATIVE UA KETONE DIPSTICK (test code = KETU) Negative mg/dL NEGATIVE UA SPECIFIC GRAVITY (test code = SGU) 1.020 1.001-1.035 UA BLOOD DIPSTICK (test code = DANIELLE) 1+ (Small) NEGATIVE A UA PH DIPSTICK (test code = LIZ) 5.0 5.0-8.0 UA PROTEIN DIPSTICK (test code = PROU) Negative mg/dL NEGATIVE UA UROBILINIOGEN DIPSTICK (test code = URO) NEGATIVE mg/dL NEGATIVE UA NITRITE DIPSTICK (test code = HELENE) NEGATIVE NEGATIVE UA LEUKOCYTE ESTERASE W REFLEX (test code = LEUUR) TRACE NEG ATIVE A UA WBC (test code = WBCU) per HPF 0-5 Urine Source? Clean Catch[QL] GENE PANEL, [id number] 14:36:00* Test Item Value Reference Range Interpretation Comments GENE SCREEN, IFA (test code = GENE SCREEN, IFA) POSITIVE NEGATIVE A GENE IFA is a first line screen for detecting thepresence of up to approximately 150 autoantibodies invarious autoimmune diseases. A positive GENE IFA resultis suggestive of autoimmune disease and reflexes totiter and pattern. Further laboratory testing may beconsidered if clinically indicated. Visit Physician FAQs for interpretation of allantibodies in the [place], prevalence, and associationwith diseases at http://education.[employer].Slingjot/faq/YYM374 DNA (DS) ANTIBODY (test code = DNA (DS) ANTIBODY) <1 N IU/mL Interpretation < or = 4 Negative 5-9 Indeterminate > or = 10 Positive SCL-70 ANTIBODY (test code = SCL-70 ANTIBODY) <1.0 NEG <1.0 NEG N SM ANTIBODY (test code = SM ANTIBODY) <1.0 NEG <1.0 NEG N SM/TANK COOPER ANTIBODY (test code = SM/TANK COOPER ANTIBODY) <1.0 NEG <1.0 NEG N SJOGRENS ANTIBODY (SS-A) (test code = SJOGRENS ANTIBODY (SS- A)) <1.0 NEG <1.0 NEG N SJOGRENS ANTIBODY (SS-B) (test code = SJOGRENS ANTIBODY (SS- B)) <1.0 NEG <1.0 NEG N [facility]] CMP [id number] 14:36:00* Test Item Value Reference Range Interpretation Comments GLUCOSE; Normal (test code = 1547-9) 94 mg/dl 65-139 N Non-fasting reference interval UREA NITROGEN (BUN) (test code = UREA NITROGEN (BUN)) 9 mg/dl 7-25 N CREATININE (test code = CREATININE) 0.56 mg/dl 0.60-0.93 For patients >49 years of age, the reference limitfor Creatinine is approximately 13% higher for peopleidentified as -Fijian. eGFR NON- (test code = eGFR NON-SUNDAR N LUXEMBOURGER) 93 {ML/MIN/1.7} > OR = 60 N eGFR (test code = eGFR ) 10 8 {ML/MIN/1.7} > OR = 60 N BUN/CREATININE RATIO (test code = BUN/CREATININE RATIO) 16 {CALC} 6-22 N SODIUM (test code = SODIUM) 141 mmol/L 135-146 N POTASSIUM (test code = POTASSIUM) 4.4 mmol/L 3.5-5.3 N CHLORIDE (test code = CHLORIDE) 102 mmol/L 98-110 N CARBON DIOXIDE (test code = CARBON DIOXIDE) 31 mmol/L 20-32 N CALCIUM (test code = CALCIUM) 9.7 mg/dl 8.6-10.4 N PROTEIN, TOTAL (test code = PROTEIN, TOTAL) 7.0 g/dl 6.1-8.1 N ALBUMIN (test code = ALBUMIN) 4.4 g/dl 3.6-5.1 N GLOBULIN (test code = GLOBULIN) 2.6 {G/DL CALC} 1.9-3.7 N ALBUMIN/GLOBULIN RATIO (test code = ALBUMIN/GLOBULIN RATIO) 1.7 {CALC} 1.0-2.5 N BILIRUBIN, TOTAL; Normal (test code = 46929-6) 0.3 mg/dl 0.2-1.2 N ALKALINE PHSPHATASE (test code = ALKALINE PHSPHATASE) 79 u/l 33-130 N AST; Normal (test code = 1916-6) 13 u/l 10-35 N ALT; Normal (test code = 1742-6) 8 u/l 6-29 N [facility]] CBC (INCLUDES DIFF/PLT)2018-03-05 14:36:00* Test Item Value Reference Range Interpretation Comments WHITE BLOOD CELL COUNT (test code = WHITE BLOOD CELL COUNT) 5.8 {Thousand/u} 3.8-10.8 N RED BLOOD CELL COUNT (test code = RED BLOOD CELL COUNT) 4.42 {Million/uL} 3.80-5.10 N HEMAGLOBIN; Normal (test code = 13448-0) 13.0 g/dl 11.7-15.5 N HEMATOCRIT; Normal (test code = 4544-3) 40.0 % 35.0-45.0 N MCV; Normal (test code = 787-2) 90.5 fL 80.0-100.0 N MCHC; Normal (test code = 20527-7) 32.5 g/dl 32.0-36.0 N RDW; Normal (test code = 788-0) 13.1 % 11.0-15.0 N PLATELET COUNT; Below Low Threshold (test code = 777-3) 129 {Thousand/u} 140-400 MPV; Above High Threshold (test code = 04021-1) 12.9 fL 7.5-12 .5 ABSOLUTE NEUTROPHILS (test code = ABSOLUTE NEUTROPHILS) 3283 {cells/uL} 0415-0924 N ABSOLUTE LYMPHOCYTES (test code = ABSOLUTE LYMPHOCYTES) 1955 {cells/uL} 850-3900 N ABSOLUTE MONOCYTES (test code = ABSOLUTE MONOCYTES) 441 {cells/uL} 200-950 N ABSOLUTE EOSINOPHILS (test code = ABSOLUTE EOSINOPHILS) 52 {cells/u L} 15-500 N ABSOLUTE BASOPHILS (test code = ABSOLUTE BASOPHILS) 70 {cells/uL} 0 -200 N NEUTROPHILS (test code = NEUTROPHILS) 56.6 % N LYMPHOCYTES (test code = LYMPHOCYTES) 33.7 % N MONOCYTES; Normal (test code = 02266-0) 7.6 % N EOSINOPHILS; Normal (test code = 25196-2) 0.9 % N BASOPHILS; Normal (test code = 85063-9) 1.2 % N [facility][] Antinuclear Antibody, Titer and Pattern 2018-03-05 14:36:00* Test Item Value Reference Range Interpretation Comments GENE PATTERN (test code = GENE PATTERN) HOMOGENEOUS A Homogeneous pattern is associated with systemic lupuserythematosus (SLE), drug induced lupus and juvenileidiopathic arthritis. GENE TITER (test code = GENE TITER) 1:160 Reference Range <1:40 Negative 1:40-1:80 Low Antibody Level >1:80 Elevated Antibody Level [facility]] TSH, 3RD [id number] 14:36:00* Test Item Value Reference Range Interpretation Comments TSH; Normal (test code = 51084-0) 1.56 {MIU/L} 0.40-4.50 N [facility]] CMP [id number] 15:45:00* Test Item Value Reference Range Interpretation Comments GLUCOSE; Normal (test code = 1547-9) 125 mg/dl 65-139 N Non-fasting reference interval UREA NITROGEN (BUN) (test code = UREA NITROGEN (BUN)) 12 mg/dl 7-25 N CREATININE (test code = CREATININE) 0.57 mg/dl 0.60-0.93 For patients >49 years of age, the reference limitfor Creatinine is approximately 13% higher for peopleidentified as -Fijian. eGFR NON- (test code = eGFR NON-SUNDAR N LUXEMBOURGER) 93 {ML/MIN/1.7} > OR = 60 N eGFR (test code = eGFR ) 10 7 {ML/MIN/1.7} > OR = 60 N BUN/CREATININE RATIO (test code = BUN/CREATININE RATIO) 21 {CALC} 6-22 N SODIUM (test code = SODIUM) 143 mmol/L 135-146 N POTASSIUM (test code = POTASSIUM) 4.2 mmol/L 3.5-5.3 N CHLORIDE (test code = CHLORIDE) 105 mmol/L 98-110 N CARBON DIOXIDE (test code = CARBON DIOXIDE) 33 mmol/L 20-32 CALCIUM (test code = CALCIUM) 9.6 mg/dl 8.6-10.4 N PROTEIN, TOTAL (test code = PROTEIN, TOTAL) 6.9 g/dl 6.1-8.1 N ALBUMIN (test code = ALBUMIN) 4.1 g/dl 3.6-5.1 N GLOBULIN (test code = GLOBULIN) 2.8 {G/DL CALC} 1.9-3.7 N ALBUMIN/GLOBULIN RATIO (test code = ALBUMIN/GLOBULIN RATIO) 1.5 {CALC} 1.0-2.5 N BILIRUBIN, TOTAL; Normal (test code = 42018-9) 0.3 mg/dl 0.2-1.2 N ALKALINE PHSPHATASE (test code = ALKALINE PHSPHATASE) 86 u/l 33-130 N AST; Normal (test code = 1916-6) 15 u/l 10-35 N ALT; Normal (test code = 1742-6) 9 u/l 6-29 N [facility]] SED RATE BY MODIFIED [id number] 15:45:00* Test Item Value Reference Range Interpretation Comments SED RATE BY MODIFIED WESTERGREN (test code = SED RATE BY MODIFIED WESTERGREN) 17 mm/h < OR = 30 N [facility]] CBC (INCLUDES DIFF/PLT)2018-01-15 15:45:00* Test Item Value Reference Range Interpretation Comments WHITE BLOOD CELL COUNT (test code = WHITE BLOOD CELL COUNT) 6.4 {Thousand/u} 3.8-10.8 N RED BLOOD CELL COUNT (test code = RED BLOOD CELL COUNT) 4.13 {Million/uL} 3.80-5.10 N HEMAGLOBIN; Normal (test code = 16320-6) 12.4 g/dl 11.7-15.5 N HEMATOCRIT; Normal (test code = 4544-3) 36.7 % 35.0-45.0 N MCV; Normal (test code = 787-2) 88.9 fL 80.0-100.0 N MCHC; Normal (test code = 88941-1) 33.8 g/dl 32.0-36.0 N RDW; Normal (test code = 788-0) 13.6 % 11.0-15.0 N PLATELET COUNT; Below Low Threshold (test code = 777-3) 119 {Thousand/u} 140-400 MPV; Above High Threshold (test code = 45128-5) 12.6 fL 7.5-12 .5 ABSOLUTE NEUTROPHILS (test code = ABSOLUTE NEUTROPHILS) 3430 {cells/uL} 1727-0957 N ABSOLUTE LYMPHOCYTES (test code = ABSOLUTE LYMPHOCYTES) 2336 {cells/uL} 850-3900 N ABSOLUTE MONOCYTES (test code = ABSOLUTE MONOCYTES) 493 {cells/uL} 200-950 N ABSOLUTE EOSINOPHILS (test code = ABSOLUTE EOSINOPHILS) 83 {cells/u L} 15-500 N ABSOLUTE BASOPHILS (test code = ABSOLUTE BASOPHILS) 58 {cells/uL} 0 -200 N NEUTROPHILS (test code = NEUTROPHILS) 53.6 % N LYMPHOCYTES (test code = LYMPHOCYTES) 36.5 % N MONOCYTES; Normal (test code = 01013-6) 7.7 % N EOSINOPHILS; Normal (test code = 81758-6) 1.3 % N BASOPHILS; Normal (test code = 62773-8) 0.9 % N [facility]] DNA (DS) [id number] 15:45:00* Test Item Value Reference Range Interpretation Comments DNA (DS) ANTIBODY (test code = DNA (DS) ANTIBODY) 1 {IU/ml} N IU/mL Interpretation < or = 4 Negative 5-9 Indeterminate > or = 10 Positive [facility]] COMPLEMENT COMPONENT [id number] 15:45:00 * Test Item Value Reference Range Interpretation Comments COMPLEMENT COMPONENT C3C (test code = COMPLEMENT COMPONENT C 3C) 146 mg/dl 83-193 N [facility]] COMPLEMENT COMPONENT [id number] 15:45:00 * Test Item Value Reference Range Interpretation Comments COMPLEMENT COMPONENT C4C (test code = COMPLEMENT COMPONENT C4C) 31 mg/dl 15-57 N [facility]] C-REACTIVE [id number] 15:45:00* Test Item Value Reference Range Interpretation Comments C-REACTIVE PROTEIN (test code = C-REACTIVE PROTEIN) 1.9 mg/L <8 .0 N [facility]] VITAMIN D, 25-HYDROXY, [id number] 15:45:00* Test Item Value Reference Range Interpretation Comments VITAMIN D,25-OH,TOTAL,IA (test code = VITAMIN D,25-OH,TOTAL,IA) 54 ng/ml 30-100 N Vitamin D Status 25-OH Vitamin D : Deficiency: <20 ng/mLInsufficiency: 20 - 29 ng/mLOptimal: > or = 30 ng/mL For 25-OH Vitamin D testing on patients on D2-supplementation and patients for whom quantitation of D2 and D3 fractions is required, the QuestAssureD(TM)25-OH VIT D, (D2,D3), LC/MS/MS is recommended: order code 09949 (patients >2yrs). For more information on this test, go to:http://education.[employer]/faq/UPM486(This link is being provided for informational/educational purposes only.) [facility][O] Hemoglobin A1c (in office)2017-10-25 10:53:00 * Test Item Value Reference Range Interpretation Comments HEMOGLOBIN A1c; Normal (test code = 4548-4) 5.5 N [facility] Bone Density [employer] [id number] 11:21:00BONE DENSITY ASSESSMENT: 10/17/2017CLINICAL DATA: Post menopausal. Z13.820 Encounter For Screening ForOsteoporosis/Z13.820 Encounter For Screening For OsteoporosisFINDINGS:Bone density evaluation was performed 10/17/2017 on the right femur neck usinga Hologic unit. The BMD average for the exam is 0.725 g/cm2. The T-score is-1.10 and the Z-score is 0.80. This matches the World Health Organization'scriteria for osteopenia and places the patient at a medium risk for fracture. An additional bone density evaluation was performed 10/17/2017 on the leftfemur neck using a Hologic unit. The BMD average for the exam is 0.677 g/cm2.The T-score is -1.50 and the Z-score is 0.30. This matches the World HealthOrganization's criteria for osteopenia and places the patient at a medium riskfor fracture. An additional bone density evaluation was performed 10/17/2017 on the right hipusing a Hologic unit. The BMD average for the exam is 0.805 g/cm2. The T-scoreis -1.10 and the Z-score is 0.50. This matches the World Health Organization'scriteria for osteopenia and places the patient at a medium risk for fracture. An additional bone density evaluation was performed 10/17/2017 on the left hipusing a Hologic unit. The BMD average for the exam is 0.824 g/cm2. The T-scoreis -1.00 and the Z-score is 0.60. This matches the World Health Organization'scriteria for normal bone density and places the patient within normal limits offracture risk. An additional bone density evaluation was performed 10/17/2017 on the AP L1-S1tamplj of spine using a Hologic unit. The BMD average for the exam is 0.808 g/cm2. The T-score is - 1.90 and the Z-score is 0.30. This matches the WorldHealth Organization's criteria for osteopenia and places the patient at amedium risk for fracture. FRAX 10 year probability of major osteoporotic fracture is 12% and hip fractureis 1.9%. IMPRESSION: OSTEOPENIAPatient is at medium risk for fracture. This exam was interpreted [id number] for AIME Negrete 15. Ge Pedroza M.D. cm/penrad:10/17/2017 13:25:08 Summer Intern(s): Rehana COHEN(Shauna)(M), [facility]--Read by: Rod Melara MDDictated Date/time: 10/17/17 13:25Electronically Signed by: Rod Melara MD 10/17/1812:25[facility] Mauricio [id number] 11:20:00BILATERAL DIGITAL SCREENING MAMMOGRAM WITH CAD: 10/17/2017CLINICAL: Z12.31 Encounter For Screening Mammogram For Malignant Neoplasm OfBreast/Z12.31 Encounter For Screening Mammogram For Malignant Neoplasm OfBreast. Current study was evaluated with a Computer Aided Detection (CAD) system. COMPARISON:Comparison is made to exams dated: 07/30/2016 mammogram, 07/24/2015mammogram, 06/23/2014 mammogram, 04/30/2013 mammogram, and 04/02/2012 mammogram -[facility]. TECHNIQUE: Mammographic views were obtained using digital acquisition. Currentstudy was also evaluated with a Computer Aided Detection (CAD) system.FINDINGS:There are scattered fibroglandular densities in both breasts. There is a benign calcification in the right breast. No significant masses, calcifications, or other findings are seen in eitherbreast. There has been no significant interval change.IMPRESSION: BENIGNRECOMMENDATION:There is no mammographic evidence of malignancy. A 1 year screening mammogram is recommended.(10/18/2018) This exam was interpreted atDD [id number] for TEVIN Downs, AIME 15. Professional services are provided by the [facility].Ge Pedroza M.D. cm/penrad:10/17/2017 13:29:45 Summer Intern(s): RT Chris(R)(M), [facility] sent: BI-RADS 1/2 Mammogram BI-RADS: 2 Benign--R ead by: Rod Melara MDDictated Date/time: 10/17/17 13:29Electronically S igned by: Rod Melara MD 10/17/1812:29FINAL REPORT [facility][O] Urine Dipstick (In Office)2017-09-29 11:00:00 * Test Item Value Reference Range Interpretation Comments Glucose (test code = Glucose) normal N LEUKOCYTES (test code = LEUKOCYTES) neg N NITRITE; Normal (test code = 82274-5) neg N UROBILINOGEN; Normal (test code = 23738-0) neg N PROTEIN (test code = 72887-5) trace pH (test code = pH) 7 URINE BLOOD (test code = 81749-0) trace SPECIFIC GRAVITY (test code = 2965-2) 1.010 KETONES; Normal (test code = 23262-2) neg N BILIRUBIN; Normal (test code = 69660-4) neg N COLOR URINE; Normal (test code = 5778-6) yellow N APPEARANCE; Normal (test code = 5767-9) clear N [facility]] CULTURE, URINE, [id number] 00:00:00* Test Item Value Reference Range Interpretation Comments CULTURE (test code = CULTURE) See Comment CULTURE, URINE, ROUTINE MICRO NUMBER: [id number] TEST STATUS: FINAL SPECIMEN SOURCE: NOT GIVEN SPECIMEN QUALITY: ADEQUATE RESULT: No Growth [facility]] URINALYSIS, COMPLETE W/REFLEX TO CULTURE 2017-09-14 16:08:00* Test Item Value Reference Range Interpretation Comments COLOR; Normal (test code = 5778-6) YELLOW YELLOW N APPEARANCE (test code = APPEARANCE) CLEAR CLEAR N SPECIFIC GRAVITY; Normal (test code = 2965-2) 1.019 1.001-1. 035 N PH; Normal (test code = 2756-5) 5.5 5.0-8.0 N GLUCOSE; Normal (test code = 1547-9) NEGATIVE NEGATIVE N BILIRUBIN; Normal (test code = 73705-8) NEGATIVE NEGATIVE N KETONES; Normal (test code = 92475-7) NEGATIVE NEGATIVE N OCCULT BLOOD; Normal (test code = 53876-6) NEGATIVE NEGATIVE N PROTEIN; Normal (test code = 22386-2) NEGATIVE NEGATIVE N NITRITE (test code = NITRITE) NEGATIVE NEGATIVE N LEUKOCYTE ESTERASE (test code = LEUKOCYTE ESTERASE) 2+ NE GATIVE A WBC; Abnormal (test code = 6690-2) 40-60 < OR = 5 A RBC; Normal (test code = 789-8) 0-2 < OR = 2 N SQUAMOUS EPITHELIAL CELLS; Normal (test code = 06366-6) NONE SEEN < OR = 5 N BACTERIA; Abnormal (test code = 630-4) FEW NONE SEEN A HYALINE CAST; Normal (test code = 12996-6) NONE SEEN NONE SEEN N REFLEXIVE URINE CULTURE (test code = REFLEXIVE URINE C ULTURE) CULTURE INDICATED - RESULTS TO FOLLOW [facility]] CULTURE, URINE, [id number] 16:08:00* Test Item Value Reference Range Interpretation Comments CULTURE (test code = CULTURE) See Comment A CULTURE, URINE, ROUTINE MICRO NUMBER: [id number] TEST STATUS: FINAL SPECIMEN SOURCE: URINE SPECIMEN QUALITY: ADEQUATE RESULT: Greater than 100,000 CFU/mL of Escherichia coli E.coli INT BENIGNO AMOX/CLAVULANATE R >=32 AMPICILLIN R >=32 AMP/SULBACTAM I 16 CEFAZOLIN R >=64 1 CEFEPIME S <=1 CEFTRIAXONE R 4 CIPROFLOXACIN R >=4 GENTAMICIN R >=16 IMIPENEM S <=0.25 LEVOFLOXACIN R >=8 NITROFURANTOIN I 64 PIP/TAZOBACTAM S <=4 TOBRAMYCIN S 4 TRIMETHOPRIM/SULFA R >=320S=Susceptible I=Intermediate R=Resistant * = Not TestedNR = Not Reported NN = See Therapy CommentsTHERAPY COMMENTS Note 1: For uncomplicated UTI caused by E. coli, K. pneumoniae or P. mirabilis: Cefazolin is susceptible if BENIGNO <32 mcg/mL and predicts susceptible to the oral agents cefaclor, cefdinir, cefpodoxime, cefprozil, cefuroxime, cephalexin and loracarbef. [facility][] LIPID PANEL WITH REFLEX TO DIRECT LDL 2017-08-24 09:46:00* Test Item Value Reference Range Interpretation Comments CHOLESTEROL, TOTAL; Normal (test code = 2093-3) 166 mg/dl <200 N HDL CHOLESTEROL; Below Low Threshold (test code = 2085-9) 45 mg/dl >50 TRIGLYCERIDES; Above High Threshold (test code = 2571-8) 155 mg/dl <150 LDL-CHOLESTEROL; Normal (test code = 53920-7) 95 {MG/DL GARFIELD} N Reference range: <100 Desirable range <100 mg/dL for primary prevention; <70 mg/dL for patients with CHD or diabetic patients with > or = 2 CHD risk factors. LDL-C is now calculated using the Samy-Jamison calculation, which is a validated novel method providing better accuracy than the Friedewald equation in the estimation of LDL-C. Samy SS et al. CALVIN. 2013;310(19): 5562-9603 (http ://education.[employer].Slingjot/faq/PSM695) CHOL/HDLC RATIO (test code = CHOL/HDLC RATIO) 3.7 {CALC} <5.0 N NON HDL CHOLESTEROL (test code = NON HDL CHOLESTEROL) 121 {MG/DL C AL} <130 N For patients with diabetes plus 1 major ASCVD risk factor, treating to a non-HDL-C goal of <100 mg/dL (LDL-C of <70 mg/dL) is considered a therapeutic option. [facility]] CMP [id number] 09:46:00* Test Item Value Reference Range Interpretation Comments GLUCOSE; Normal (test code = 1547-9) 96 mg/dl 65-99 N Fasting reference interval UREA NITROGEN (BUN) (test code = UREA NITROGEN (BUN)) 13 mg/dl 7-25 N CREATININE (test code = CREATININE) 0.45 mg/dl 0.60-0.93 For patients >49 years of age, the reference limitfor Creatinine is approximately 13% higher for peopleidentified as -Fijian. eGFR NON- (test code = eGFR NON-SUNDAR N LUXEMBOURGER) 101 {ML/MIN/1.7} > OR = 60 N eGFR (test code = eGFR ) 11 7 {ML/MIN/1.7} > OR = 60 N BUN/CREATININE RATIO (test code = BUN/CREATININE RATIO) 29 {CALC} 6-22 SODIUM (test code = SODIUM) 143 mmol/L 135-146 N POTASSIUM (test code = POTASSIUM) 4.1 mmol/L 3.5-5.3 N CHLORIDE (test code = CHLORIDE) 107 mmol/L 98-110 N CARBON DIOXIDE (test code = CARBON DIOXIDE) 28 mmol/L 20-31 N CALCIUM (test code = CALCIUM) 9.2 mg/dl 8.6-10.4 N PROTEIN, TOTAL (test code = PROTEIN, TOTAL) 6.6 g/dl 6.1-8.1 N ALBUMIN (test code = ALBUMIN) 4.0 g/dl 3.6-5.1 N GLOBULIN (test code = GLOBULIN) 2.6 {G/DL CALC} 1.9-3.7 N ALBUMIN/GLOBULIN RATIO (test code = ALBUMIN/GLOBULIN RATIO) 1.5 {CALC} 1.0-2.5 N BILIRUBIN, TOTAL; Normal (test code = 26163-3) 0.3 mg/dl 0.2-1.2 N ALKALINE PHSPHATASE (test code = ALKALINE PHSPHATASE) 82 u/l 33-130 N AST; Normal (test code = 1916-6) 12 u/l 10-35 N ALT; Normal (test code = 1742-6) 10 u/l 6-29 N [facility]] CBC (INCLUDES DIFF/PLT)2017-08-24 09:46:00* Test Item Value Reference Range Interpretation Comments WHITE BLOOD CELL COUNT (test code = WHITE BLOOD CELL COUNT) 7.4 {Thousand/u} 3.8-10.8 N RED BLOOD CELL COUNT (test code = RED BLOOD CELL COUNT) 3.96 {Million/uL} 3.80-5.10 N HEMAGLOBIN; Normal (test code = 64260-0) 12.1 g/dl 11.7-15.5 N HEMATOCRIT; Normal (test code = 4544-3) 37.3 % 35.0-45.0 N MCV; Normal (test code = 787-2) 94.2 fL 80.0-100.0 N MCHC; Normal (test code = 07452-5) 32.4 g/dl 32.0-36.0 N RDW; Normal (test code = 788-0) 13.5 % 11.0-15.0 N PLATELET COUNT; Below Low Threshold (test code = 777-3) 127 {Thousand/u} 140-400 MPV; Above High Threshold (test code = 53832-8) 12.6 fL 7.5-12 .5 ABSOLUTE NEUTROPHILS (test code = ABSOLUTE NEUTROPHILS) 4647 {cells/uL} 3642-7109 N ABSOLUTE LYMPHOCYTES (test code = ABSOLUTE LYMPHOCYTES) 1887 {cells/uL} 850-3900 N ABSOLUTE MONOCYTES (test code = ABSOLUTE MONOCYTES) 777 {cells/uL} 200-950 N ABSOLUTE EOSINOPHILS (test code = ABSOLUTE EOSINOPHILS) 30 {cells/u L} 15-500 N ABSOLUTE BASOPHILS (test code = ABSOLUTE BASOPHILS) 59 {cells/uL} 0 -200 N NEUTROPHILS (test code = NEUTROPHILS) 62.8 % N LYMPHOCYTES (test code = LYMPHOCYTES) 25.5 % N MONOCYTES; Normal (test code = 56146-8) 10.5 % N EOSINOPHILS; Normal (test code = 31701-3) 0.4 % N BASOPHILS; Normal (test code = 02432-4) 0.8 % N COMMENT(S) (test code = COMMENT(S)) See Comment Review of peripheral smear confirmsautomated results. [facility]] CBC (INCLUDES DIFF/PLT)2017-04-14 13:20:01* Test Item Value Reference Range Interpretation Comments WBC (test code = WBC) 5.4 {K/CMM} 3.7-10.4 RBC (test code = RBC) 4.27 {M/CMM} 4.20-5.40 Hgb (test code = 09893-3) 13.0 g/dl 12.0-16.0 Hct (test code = 4544-3) 38.9 % 36.0-48.0 MCV (test code = MCV) 91.0 fL 80.0-98.0 MCH (test code = MCH) 30.5 pg 27.0-31.0 MCHC (test code = MCHC) 33.5 g/dl 32.0-36.0 RDW (test code = RDW) 13.9 % 11.5-14.5 Platelet; Below Low Threshold (test code = 777-3) 101 {K/CMM} 133- 450 Mean Platelet Volume (test code = Mean Platelet Volume) 10.7 fL 7.4-10.4 WBC (test code = 6690-2) 5.4 {K/CMM} 3.7-10.4 RBC (test code = 789-8) 4.27 {M/CMM} 4.20-5.40 MCV (test code = 787-2) 91.0 fL 80.0-98.0 MCH (test code = 785-6) 30.5 pg 27.0-31.0 MCHC (test code = 786-4) 33.5 g/dl 32.0-36.0 RDW (test code = 788-0) 13.9 % 11.5-14.5 Mean Platelet Volume; Above High Threshold (test code = 3262 3-1) 10.7 fL 7.4-10.4 [facility]] [id number] 13:20:01* Test Item Value Reference Range Interpretation Comments Segmented Neutrophils (test code = 52569-1) 54.8 % 45.0-75.0 Monocytes # (test code = 67709-1) 0.5 {K/CMM} 0.0-0.8 Lymphocytes (test code = Lymphocytes) 33.6 % 20.0-40.0 Eosinophils # (test code = 95791-8) 0.1 {K/CMM} 0.0-0.5 Basophils # (test code = 71578-1) 0.1 {K/CMM} 0.0-0.2 Segs-Bands # (test code = 36240-1) 2.9 {K/CMM} 1.5-8.1 Lymphocytes # (test code = 18512-0) 1.8 {K/CMM} 1.0-5.5 Lymphocytes (test code = 76331-2) 33.6 % 20.0-40.0 [facility]] COMPLEMENT COMPONENT [id number] 15:47:01 * Test Item Value Reference Range Interpretation Comments C3 Complement (test code = C3 Complement) 141 mg/dl 88-201 [facility]] COMPLEMENT COMPONENT [id number] 15:47:01 * Test Item Value Reference Range Interpretation Comments C4 Complement (test code = C4 Complement) 27 mg/dl 16-47 [facility]] C-REACTIVE [id number] 15:47:01* Test Item Value Reference Range Interpretation Comments CRP (test code = CRP) <2.9 <=2.9 [facility]] CMP [id number] 15:47:01* Test Item Value Reference Range Interpretation Comments Sodium Level (test code = Sodium Level) 142 {mEq/l} 135-145 Potassium Level (test code = Potassium Level) 3.9 {mEq/l} 3.5-5.1 Chloride Level (test code = Chloride Level) 106 {mEq/l} 95-109 Carbon Dioxide (test code = Carbon Dioxide) 28 {mEq/l} 24-32 AGAP (test code = AGAP) 11.9 {mEq/l} 10.0-20.0 Glucose Lvl (test code = Glucose Lvl) 120 mg/dl 70-99 Adult reference range values reflect the clinical guidelinesof the [place] [employer]. Creatinine Lvl (test code = Creatinine Lvl) 0.60 mg/dl 0.50-1.40 Blood Urea Nitrogen (test code = Blood Urea Nitrogen) 12 mg/dl 7-22 BUN/Creatinine Ratio (test code = BUN/Creatinine Ratio) 20 6-25 Total Protein (test code = 17283-3) 7.5 g/dl 6.4-8.4 Albumin Lvl (test code = 1751-7) 3.9 g/dl 3.5-5.0 Globulin (test code = Globulin) 3.6 g/dl 2.7-4.2 A/G Ratio (test code = A/G Ratio) 1.1 0.7-1.6 Calcium Level Total (test code = Calcium Level Total) 9.3 mg/dl 8.5-10.5 ALT (test code = 1742-6) 17 u/l 0-65 AST (test code = 1916-6) 17 u/l 0-37 Alk Phos (test code = 1783-0) 87 u/l 39-136 Bili Total (test code = 88430-9) 0.4 mg/dl 0.2-1.3 eGFR (test code = eGFR) 92 {ML/MIN/1.7} T he eGFR is calculated using the CKD-EPI formula. In most young, healthyindividuals the eGFR will be >90 mL/min/1.73m2. The eGFR declines with age. AneGFR of 60-89 may be normal in some populations, particularly the elderly, forwhom the CKD-EPI formula has not been extensively validated. Use of the eGFR isnot recommended in the following populations:Individuals with unstable creatinine concentrations, including patients and those with serious co-morbid conditions.Patients with extremes in muscle mass or diet.The data above are obtained from the National Kidney Disease Education Program(NKDEP) which additionally recommends that when the eGFR is used in patientswith extremes of body mass index for purposes of drug dosing, the eGFR shouldbe multiplied by the estimated BMI. [facility]] CBC (INCLUDES DIFF/PLT)2017-03-27 15:47:01* Test Item Value Reference Range Interpretation Comments WBC (test code = WBC) 6.1 {K/CMM} 3.7-10.4 RBC (test code = RBC) 4.11 {M/CMM} 4.20-5.40 Hgb (test code = 06135-4) 12.8 g/dl 12.0-16.0 Hct (test code = 4544-3) 37.5 % 36.0-48.0 MCV (test code = MCV) 91.2 fL 80.0-98.0 MCH (test code = MCH) 31.1 pg 27.0-31.0 MCHC (test code = MCHC) 34.1 g/dl 32.0-36.0 RDW (test code = RDW) 14.0 % 11.5-14.5 Platelet; Below Low Threshold (test code = 777-3) 89 {K/CMM} 133- 450 Mean Platelet Volume (test code = Mean Platelet Volume) 11.3 fL 7.4-10.4 [facility]] [id number] 15:47:01* Test Item Value Reference Range Interpretation Comments Segmented Neutrophils (test code = 43260-3) 56.3 % 45.0-75.0 Monocytes # (test code = 23257-1) 0.5 {K/CMM} 0.0-0.8 Lymphocytes (test code = Lymphocytes) 34.0 % 20.0-40.0 Eosinophils # (test code = 46571-4) 0.1 {K/CMM} 0.0-0.5 Basophils (test code = 00357-9) 0.7 % 0.0-1.0 Segs-Bands # (test code = 64907-1) 3.4 {K/CMM} 1.5-8.1 Lymphocytes # (test code = 81540-0) 2.1 {K/CMM} 1.0-5.5 [facility]] URINALYSIS, [id number] 15:47:01* Test Item Value Reference Range Interpretation Comments UA Turbidity; Abnormal (test code = 31259-7) Marked Clear A UA Spec Grav (test code = 2965-2) 1.029 <=1.030 UA pH (test code = 2756-5) 5.0 5.0-8.0 UA Protein; Abnormal (test code = 97880-2) 30 mg/dl Negative A UA Glucose (test code = 2349-9) Negative Negative UA Ketones (test code = 28810-7) Negative Negative UA Bili (test code = 51040-0) Negative Negative UA Blood (test code = 798-9) Negative Negative UA Nitrite (test code = 34583-5) Negative Negative UA Leuk Est; Abnormal (test code = 78558-5) Large Negative A UA RBC; Above High Threshold (test code = 92968-2) 4 {/HPF} 0-2 UA WBC; Above High Threshold (test code = 86135-0) 11 {/HPF} 0-5 UA Bacteria (test code = 630-4) Occasional None Seen UA Mucus; Abnormal (test code = 65446-2) Many None Seen A UA Sq Epi (test code = 85629-1) Occasional Few Urine Calcium Oxalate Crystal (test code = 5774-5) Occasional Non e Seen UA Color (test code = 17995-7) Kimberli UROBILINOGEN (test code = 34448-7) <=1.0 0.1-1.0 [facility]] SED RATE BY MODIFIED [id number] 15:47:01* Test Item Value Reference Range Interpretation Comments Sedimentation Rate (test code = Sedimentation Rate) 20 {mm/hr} 0- 20 [facility]] DNA (DS) [id number] 15:47:01* Test Item Value Reference Range Interpretation Comments DNA Antibody (Double-stranded) (test code = DNA Antibo dy (Double-stranded)) Negative Negative [facility]] CBC (INCLUDES DIFF/PLT)2016-12-27 15:20:01* Test Item Value Reference Range Interpretation Comments WBC (test code = WBC) 5.8 {K/CMM} 3.7-10.4 RBC (test code = RBC) 3.95 {M/CMM} 4.20-5.40 Hgb (test code = 10418-1) 12.2 g/dl 12.0-16.0 Hct (test code = 4544-3) 36.4 % 36.0-48.0 MCV (test code = MCV) 92.3 fL 80.0-98.0 MCH (test code = MCH) 31.0 pg 27.0-31.0 MCHC (test code = MCHC) 33.6 g/dl 32.0-36.0 RDW (test code = RDW) 14.0 % 11.5-14.5 Platelet; Below Low Threshold (test code = 777-3) 113 {K/CMM} 133- 450 Mean Platelet Volume (test code = Mean Platelet Volume) 11.3 fL 7.4-10.4 [facility]] [id number] 15:20:01* Test Item Value Reference Range Interpretation Comments Segmented Neutrophils (test code = 78501-9) 51.9 % 45.0-75.0 Monocytes # (test code = 07975-3) 0.5 {K/CMM} 0.0-0.8 Lymphocytes (test code = Lymphocytes) 36.6 % 20.0-40.0 Eosinophils # (test code = 71939-8) 0.1 {K/CMM} 0.0-0.5 Basophils (test code = 80456-5) 0.8 % 0.0-1.0 Segs-Bands # (test code = 14605-4) 3.0 {K/CMM} 1.5-8.1 Lymphocytes # (test code = 35265-7) 2.1 {K/CMM} 1.0-5.5 [facility]] SED RATE BY MODIFIED [id number] 15:20:01* Test Item Value Reference Range Interpretation Comments Sedimentation Rate (test code = Sedimentation Rate) 30 {mm/hr} 0- 20 [facility]] CMP [id number] 15:20:01* Test Item Value Reference Range Interpretation Comments Sodium Level (test code = Sodium Level) 140 {mEq/l} 135-145 Potassium Level (test code = Potassium Level) 3.9 {mEq/l} 3.5-5.1 Chloride Level (test code = Chloride Level) 107 {mEq/l} 95-109 Carbon Dioxide (test code = Carbon Dioxide) 25 {mEq/l} 24-32 AGAP (test code = AGAP) 11.9 {mEq/l} 10.0-20.0 Glucose Lvl (test code = Glucose Lvl) 115 mg/dl 70-99 Adult reference range values reflect the clinical guidelinesof the [place] [employer]. Creatinine Lvl (test code = Creatinine Lvl) 0.50 mg/dl 0.50-1.40 Blood Urea Nitrogen (test code = Blood Urea Nitrogen) 12 mg/dl 7-22 BUN/Creatinine Ratio (test code = BUN/Creatinine Ratio) 24 6-25 Total Protein (test code = 04352-1) 7.1 g/dl 6.4-8.4 Albumin Lvl (test code = 1751-7) 3.7 g/dl 3.5-5.0 Globulin (test code = Globulin) 3.4 g/dl 2.7-4.2 A/G Ratio (test code = A/G Ratio) 1.1 0.7-1.6 Calcium Level Total (test code = Calcium Level Total) 9.7 mg/dl 8.5-10.5 ALT (test code = 1742-6) 18 u/l 0-65 AST (test code = 1916-6) 17 u/l 0-37 Bili Total (test code = 52374-1) 0.2 mg/dl 0.2-1.3 Alk Phos (test code = 1783-0) 101 u/l 39-136 eGFR (test code = eGFR) 98 {ML/MIN/1.7} T he eGFR is calculated using the CKD-EPI formula. In most young, healthyindividuals the eGFR will be >90 mL/min/1.73m2. The eGFR declines with age. AneGFR of 60-89 may be normal in some populations, particularly the elderly, forwhom the CKD-EPI formula has not been extensively validated. Use of the eGFR isnot recommended in the following populations:Individuals with unstable creatinine concentrations, including patients and those with serious co-morbid conditions.Patients with extremes in muscle mass or diet.The data above are obtained from the National Kidney Disease Education Program(NKDEP) which additionally recommends that when the eGFR is used in patientswith extremes of body mass index for purposes of drug dosing, the eGFR shouldbe multiplied by the estimated BMI. [facility]] C-REACTIVE [id number] 15:20:01* Test Item Value Reference Range Interpretation Comments CRP (test code = CRP) <2.9 <=2.9 [facility] (Diabetic)2016-07-21 05:00:00* Test Item Value Reference Range Interpretation Comments Negative Diabetic Eye Screening (test code = Negative Diabetic Eye Screening) 21Jul2016 [facility]
--- OUTSIDE RECORDS SUMMARY | 2020-01-24 16:30 | XMS REPORT | Continuity of Care Document ---
Author Author [facility], SKY Bhagat Organization [facility] Address Unknown Phone Unavailable Care Team Providers Care Strategic Account Director Name Role Phone P[employer] Information Exchange Unavailable Un available Problems Problem Status Onset Date Classification Date Reported Comments Source Hyperlipidemia Active 06/25/2013 [facility] Benign Paroxysmal Positional Vertigo Active 06/25/2013 [facility] Tingling (Paresthesia) Active 06/25/2013 [facility] Insomnia Active 06/25/2013 [facility] Thrombophlebitis Of Superficial Vessels Of The Lower Extremity Active 06/25/2013 [facility] Thrombocytopenia Active 06/25/2013 [facility] Arthralgia Of The Shoulder Region Active 06/25/2013 [facility] Medications Medication Details Route Status Patient Instructions Ordering Provider Order Date Source Cyclobenzaprine HCl 5 MG Oral Tablet ; Start Date: 06/25/2013 (Active) Active 06/25/2013 [facility] Meloxicam 7.5 MG Oral Tablet ; Start Date: 05/06/2013; End Date: (Active) Active 05/06/2013 [facility] Gabapentin 100 MG Oral Capsule ; Start Date: 04/09/2013 (Active) Active 04/09/2013 [facility] Amitriptyline HCl 25 MG Oral Tablet ; Start Date: 09/24/2012; End Date: (Active) Active 09/24/2012 [facility] Claritin 10 MG Oral Tablet ; S tart Date: 09/24/2012 (Active) Active 09/24/2012 [facility] Atorvastatin Calcium 20 MG Oral Tablet ; Start Date: ; End Date: (Active) Inactive [facility] Atorvastatin Calcium 10 MG Oral Tablet (Active) Active [facility] Fish Oil CAPS (Active) Active [facility] Calcium + D TABS (Active) Active [facility] B-12 2500 MCG Sublingual Tablet Sublingual (Active) Active [facility] Allergies, Adverse Reactions, Alerts Substance Category Reaction Severity Reaction type Status Date Reported Comments Source Codeine Sulfate SOLN drug srinath rgy drug aller gy Active [facility] Penicillins drug allergy drug allergy Active [facility] Immunizations Immunization Date Given Site Status Last Updated Comments Source Pneumo (Pneumovax) 09/16/2010 completed [facility] Tdap completed [facility] Results No Data Provided for This Section [...] Provider ADM Date DC Date Status Source AUDIT [id number] 09/25/2012 09/25/2012 [facility] AUDIT [id number] 09/27/2012 09/27/2012 [facility] Antony PRIETO srinivasan: APRIL ARIAS, Status: Pen, Time: 8:00 AM [id number] 10/08/2012 09/27/2012 [facility] AUDIT [id number] 10/09/2012 10/09/2012 [facility] AUDIT [id number] 11/26/2012 11/26/2012 [facility] Antony HUSAIN srinivasan: APRIL ARIAS, Status: Pen, Time: 8:45 AM [id number] 11/27/2012 11/26/2012 [facility] AUDIT [id number] 11/27/2012 11/27/2012 [facility] DVT Provmarcia srinivasan: LARISSA VEGA, Status: Pen, Time: 11:00 AM [id number] 11/29/19 13 11/27/2012 [facility] AUDIT [id number] 01/03/2013 01/03/2013 [facility] AUDIT [id number] 01/08/2013 01/08/2013 [facility] Antony HUSAIN srinivasan: APRIL ARIAS, Status: Pen, Time: 8:00 AM [id number] 04/08/2013 01/08/2013 [facility] AUDIT [id number] 04/10/2013 04/10/2013 [facility] AUDIT [id number] 05/02/2013 05/02/2013 [facility] Antony HUSAIN srinivasan: APRIL ARIAS, Status: Pen, Time: 8:00 AM [id number] 05/06/2013 05/02/2013 [facility] AUDIT [id number] 05/06/2013 05/06/2013 [facility] RODRIGUE Provmarcia srinivasan: APRIL ARIAS, Status: Pen, Time: 8:15 AM [id number] 06/25/2013 05/06/2013 [facility] AUDIT [id number] 06/25/2013 06/25/2013 [facility] Procedures No Data Provided for This Section Assessment and Plan No Data Provided for This Section Plan of Care Plan of Care Date Source Medication Use 09/24/2012 RoutineMA Digi leonidas Mammo Screening Mauricio G0202 04/09/2013 Routine[QH] LIPID PANEL WITH REFLEX TO DIRECT LDL 06/24/2013 Routine[QLH] CMP W/EGFR 06/24/2013 RoutineFollow-up visit in 1 month 05/06/2013 RoutineFollow-up visit in 3 months 06/25/2013 Routine 06/25/2013 [facility] Medication Use 09/24/2012 RoutineMA Digi leonidas Mammo Screening Mauricio G0202 04/09/2013 Routine[QH] LIPID PANEL WITH REFLEX TO DIRECT LDL 06/24/2013 Routine[QLH] CMP W/EGFR 06/24/2013 RoutineFollow-up visit in 1 month 05/06/2013 Routine 05/06/2013 [facility] Medication Use 09/24/2012 RoutineMA Digi leonidas Mammo Screening Mauricio G0202 04/09/2013 Routine[QH] LIPID PANEL WITH REFLEX TO DIRECT LDL 06/24/2013 Routine[QLH] CMP W/EGFR 06/24/2013 Routine 05/02/2013 [facility] Medication Use 09/24/2012 RoutineMA Digi leonidas Mammo Screening Mauricio G0202 04/09/2013 Routine[Q] LIPID PANEL WITH REFLEX TO DIRECT LDL 06/24/2013 Routine[QLH] CMP W/EGFR 06/24/2013 Routine 04/10/2013 [facility] Medication Use 09/24/2012 Routine 01/08/2013 [facility] Medication Use 09/24/2012 Routine 01/03/2013 [facility] Medication Use 09/24/2012 Routine[QLH] C BC (INCLUDES DIFF/PLT) 11/27/2012 Routine[QLH] CMP W/EGFR 11/27/2012 Routine[N] Venous Duplex Lower Unilateral 11/27/2012 RoutineFollow-up visit in 1 week 11/27/2012 Routine 11/27/2012 [facility] Medication Use 09/24/2012 Routine 11/26/2012 [facility] [QLH] CBC (INCLUDES DIFF/PLT) 09/24/2012 Routine[QLH] CMP W/EGFR 09/24/2012 Routine[QLH] TSH, 3RD GENERATION W/REFLEX TO FT4 09/24/2012 Routine[QLH] VITAMIN B12 09/24/2012 RoutineMedication Use 09/24/2012 Routine 10/09/2012 [facility] Medication Use 09/24/2012 Routine[QLH] C BC (INCLUDES DIFF/PLT) 09/24/2012 Routine[QLH] VITAMIN B12 09/24/2012 Routine[QLH] TSH, 3RD GENERATION W/REFLEX TO FT4 09/24/2012 Routine[QLH] CMP W/EGFR 09/24/2012 Routine 09/27/2012 [facility] [QLH] CBC (INCLUDES DIFF/PLT) 09/24/2012 Routine[QLH] CMP W/EGFR 09/24/2012 Routine[QLH] TSH, 3RD GENERATION W/REFLEX TO FT4 09/24/2012 Routine[QLH] VITAMIN B12 09/24/2012 RoutineMedication Use 09/24/2012 RoutineFollow-up visit in 2 weeks 09/24/2012 Routine 09/25/2012 [facility] Social History Social History Date Source Marital History - (Active ) Former Smoker (V15.82); (Active) Never Drank Alcohol (Active) Occupation: Retired (Active) 06/25/2013 [facility] Family History Value Date S ource Maternal history of Hypertension (V17.49 ); (Active) 06/25/2013 [facility] Maternal history of Hypertension (V17.49 ); (Active) 05/06/2013 [facility] Maternal history of Hypertension (V17.49 ); (Active) 05/02/2013 [facility] Maternal history of Hypertension (V17.49 ); (Active) 04/10/2013 [facility] Maternal history of Hypertension (V17.49 ); (Active) 01/08/2013 [facility] Maternal history of Hypertension (V17.49 ); (Active) 01/03/2013 [facility] Maternal history of Hypertension (V17.49 ); (Active) 11/27/2012 [facility] Maternal history of Hypertension (V17.49 ); (Active) 11/26/2012 [facility] Maternal history of Hypertension (V17.49 ); (Active) 10/09/2012 [facility] Maternal history of Hypertension (V17.49 ); (Active) 09/27/2012 [facility] Maternal history of Hypertension (V17.49 ); (Active) 09/25/2012 [facility] Advance Directives Order Name Results Value Date Source Advance Directives Advance Dir ectives No Advance Directives available. 06/25/2013 [facility] Advance Directives Advance Dir ectives No Advance Directives available. 05/06/2013 [facility] Advance Directives Advance Dir ectives No Advance Directives available. 05/02/2013 [facility] Advance Directives Advance Dir ectives No Advance Directives available. 04/10/2013 [facility] Advance Directives Advance Dir ectives No Advance Directives available. 01/08/2013 [facility] Advance Directives Advance Dir ectives No Advance Directives available. 01/03/2013 [facility] Advance Directives Advance Dir ectives No Advance Directives available. 11/27/2012 [facility] Advance Directives Advance Dir ectives No Advance Directives available. 11/26/2012 [facility] Advance Directives Advance Dir ectives No Advance Directives available. 10/09/2012 [facility] Advance Directives Advance Dir ectives No Advance Directives available. 09/27/2012 [facility] Advance Directives Advance Dir ectives No Advance Directives available. 09/25/2012 [facility] Functional Status No Data Provided for This Section
--- NOTE | 2020-01-24 16:58 | Diagnostic Imaging Report ---
X-ray chest 2 views History: Chest pain Comparison: 10/14/2018 Findings: Central airways: Unremarkable. Heart: Normal size. Major vessels: Atherosclerotic aorta Mediastinal silhouettes: Unremarkable. Pleural spaces: No pleural effusion or pneumothorax. Lungs: No significant focal lung disease. The right lower lung zone nodule is visualized again and is unchanged. Skeletal structures: Unremarkable. Extrathoracic soft tissues: Unremarkable. Impression: No significant abnormality on this exam. Signed by: Kimani Freeman MD on 01/24/2020 4:55 PM
[2020-01-24] MEDS ORDERED: ASPIRIN 81 MG CHEW TAB PO ONE (17:30)
[2020-01-24] MEDS ORDERED: ONDANSETRON HCL INJ 2MG/ML 2ML 2 MG/ML VIAL IV PRN (17:30)
[2020-01-24] MEDS ORDERED: SODIUM CHLORIDE FLUSH 10 ML SYR INJ PRN (17:30)
[2020-01-24] MEDS ORDERED: ASPIRIN 81 MG CHEW TAB ONE (17:45)
--- NOTE | 2020-01-24 17:53 | NUR ---
contacted [facility] to transfer pt to room 292, ETA 45 minutes.
--- OUTSIDE RECORDS SUMMARY | 2020-01-24 18:04 | XMS REPORT | Continuity of Care Document ---
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 [employer] Unavailable Un available Problems Problem Status Onset Date Classification Date Reported Comments Source Hyperlipidemia Active 06/25/2013 [facility] Benign Paroxysmal Positional Vertigo Active 06/25/2013 [facility] Tingling (Paresthesia) Active 06/25/2013 [facility] Insomnia Active 06/25/2013 [facility] Thrombophlebitis Of Superficial Vessels Of The Lower Extremity Active 06/25/2013 [facility] Thrombocytopenia Active 06/25/2013 [facility] Arthralgia Of The Shoulder Region Active 06/25/2013 [facility] Medications Medication Details Route Status Patient Instructions Ordering Provider Order Date Source Cyclobenzaprine HCl 5 MG Oral Tablet ; Start Date: 06/25/2013 (Active) Active 06/25/2013 [facility] Meloxicam 7.5 MG Oral Tablet ; Start Date: 05/06/2013; End Date: (Active) Active 05/06/2013 [facility] Gabapentin 100 MG Oral Capsule ; Start Date: 04/09/2013 (Active) Active 04/09/2013 [facility] Amitriptyline HCl 25 MG Oral Tablet ; Start Date: 09/24/2012; End Date: (Active) Active 09/24/2012 [facility] Claritin 10 MG Oral Tablet ; S tart Date: 09/24/2012 (Active) Active 09/24/2012 [facility] Atorvastatin Calcium 20 MG Oral Tablet ; Start Date: ; End Date: (Active) Inactive [facility] Atorvastatin Calcium 10 MG Oral Tablet (Active) Active [facility] Fish Oil CAPS (Active) Active [facility] Calcium + D TABS (Active) Active [facility] B-12 2500 MCG Sublingual Tablet Sublingual (Active) Active [facility] Allergies, Adverse Reactions, Alerts Substance Category Reaction Severity Reaction type Status Date Reported Comments Source Codeine Sulfate SOLN drug srinath rgy drug aller gy Active [facility] Penicillins drug allergy drug allergy Active [facility] Immunizations Immunization Date Given Site Status Last Updated Comments Source Pneumo (Pneumovax) 09/16/2010 completed [facility] Tdap completed [facility] Results No Data Provided for This [...] ADM Date DC Date Status Source AUDIT [id number] 09/25/2012 09/25/2012 [facility] AUDIT [id number] 09/27/2012 09/27/2012 [facility] Antony PRIETO srinivasan: APRIL ARIAS, Status: Pen, Time: 8:00 AM [id number] 10/08/2012 09/27/2012 [facility] AUDIT [id number] 10/09/2012 10/09/2012 [facility] AUDIT [id number] 11/26/2012 11/26/2012 [facility] Antony HUSAIN srinivasan: APRIL ARIAS, Status: Pen, Time: 8:45 AM [id number] 11/27/2012 11/26/2012 [facility] AUDIT [id number] 11/27/2012 11/27/2012 [facility] DVT Provmarcia srinivasan: LARISSA VEGA, Status: Pen, Time: 11:00 AM [id number] 11/29/19 13 11/27/2012 [facility] AUDIT [id number] 01/03/2013 01/03/2013 [facility] AUDIT [id number] 01/08/2013 01/08/2013 [facility] Antony HUSAIN srinivasan: APRIL ARIAS, Status: Pen, Time: 8:00 AM [id number] 04/08/2013 01/08/2013 [facility] AUDIT [id number] 04/10/2013 04/10/2013 [facility] AUDIT [id number] 05/02/2013 05/02/2013 [facility] Antony HUSAIN srinivasan: APRIL ARIAS, Status: Pen, Time: 8:00 AM [id number] 05/06/2013 05/02/2013 [facility] AUDIT [id number] 05/06/2013 05/06/2013 [facility] RODRIGUE Provmarcia srinivasan: APRIL ARIAS, Status: Pen, Time: 8:15 AM [id number] 06/25/2013 05/06/2013 [facility] AUDIT [id number] 06/25/2013 06/25/2013 [facility] Procedures No Data Provided for This Section Assessment and Plan No Data Provided for This Section Plan of Care Plan of Care Date Source Medication Use 09/24/2012 [facility]onidas Mammo Screening Mauricio [id number] 04/09/2013 Routine[QH] LIPID PANEL WITH REFLEX TO DIRECT LDL 06/24/2013 Routine[QLH] CMP W/EGFR 06/24/2013 RoutineFollow-up visit in 1 month 05/06/2013 RoutineFollow-up visit in 3 months 06/25/2013 Routine 06/25/2013 [facility] Medication Use 09/24/2012 RoutineMA Digi leonidas Mammo Screening Mauricio [id number] 04/09/2013 Routine[QH] LIPID PANEL WITH REFLEX TO DIRECT LDL 06/24/2013 Routine[QLH] CMP W/EGFR 06/24/2013 RoutineFollow-up visit in 1 month 05/06/2013 Routine 05/06/2013 [facility] Medication Use 09/24/2012 RoutineMA Digi leonidas Mammo Screening Mauricio [id number] 04/09/2013 Routine[QH] LIPID PANEL WITH REFLEX TO DIRECT LDL 06/24/2013 Routine[QLH] CMP W/EGFR 06/24/2013 Routine 05/02/2013 [facility] Medication Use 09/24/2012 RoutineMA Digi leonidas Mammo Screening Mauricio [id number] 04/09/2013 Routine[Q] LIPID PANEL WITH REFLEX TO DIRECT LDL 06/24/2013 Routine[QLH] CMP W/EGFR 06/24/2013 Routine 04/10/2013 [facility] Medication Use 09/24/2012 Routine 01/08/2013 [facility] Medication Use 09/24/2012 Routine 01/03/2013 [facility] Medication Use 09/24/2012 Routine[QLH] C BC (INCLUDES DIFF/PLT) 11/27/2012 Routine[QLH] CMP W/EGFR 11/27/2012 Routine[N] Venous Duplex Lower Unilateral 11/27/2012 RoutineFollow-up visit in 1 week 11/27/2012 Routine 11/27/2012 [facility] Medication Use 09/24/2012 Routine 11/26/2012 [facility] [QLH] CBC (INCLUDES DIFF/PLT) 09/24/2012 Routine[QLH] [...] visit in 2 weeks 09/24/2012 Routine 09/25/2012 [facility] Social History Social History Date Source [...] history of Hypertension (V17.49 ); (Active) 09/25/2012 [facility] Advance Directives Order Name Results Value Date Source Advance Directives Advance Dir ectives No Advance Directives available. 06/25/2013 [facility] Advance Directives Advance Dir ectives No Advance Directives available. 05/06/2013 [facility] Advance Directives Advance Dir ectives No Advance Directives available. 05/02/2013 [facility] Advance Directives Advance Dir ectives No Advance Directives available. 04/10/2013 [facility] Advance Directives Advance Dir ectives No Advance Directives available. 01/08/2013 [facility] Advance Directives Advance Dir ectives No Advance Directives available. 01/03/2013 [facility] Advance Directives Advance Dir ectives No Advance Directives available. 11/27/2012 [facility] Advance Directives Advance Dir ectives No Advance Directives available. 11/26/2012 [facility] Advance Directives Advance Dir ectives No Advance Directives available. 10/09/2012 [facility] Advance Directives Advance Dir ectives No Advance Directives available. 09/27/2012 [facility] Advance Directives Advance Dir ectives No Advance Directives available. 09/25/2012 [facility] Functional Status No Data Provided for This Section
--- OUTSIDE RECORDS SUMMARY | 2020-01-24 18:05 | XMS REPORT | Continuity of Care Document ---
Author Author [facility] t Organization [facility] Address [address] [place] [address] Phone Unavailable Care Team Providers Care Bridge Worker Apprentice Name Role Phone HUGO NELSON MD S (NS) MATILDE PCP Felisha CARVAJAL MICHELLE Attphys Unavailable SOLANGE HARRISON M.D. Attphys UnavailMATILDE Ortega M.D. Attphys Unavailable COLTON YORK M.D. Attphys Unavailabl e [place] Attphys Unavailable DONTE SINGH PA Attphys Unavailable HAMPEL, YADIEL Attphys Unavailable MONICA ROSAS D.O. Attphys Unavailable LEXIE WILSON M.D. Attphys Unavailable VASCULAR, SE Attphys Unavailable Felisha LOMBARDO Attphys Unavailable SOBEIDA CHEUNG P.A. Attphys Unavailable BALTAZAR JO P.A. Attphys Unavailable DONTE SINGH M.D. Attphys Unavailable RODNEY MONTENEGRO P.AKaroline Attphys Unavailable HAYLEE YIN Attphys Unavailable VIRGIL POE M.D. Attphys Unavailable VASCULAR, [place] Attphys Unavailable [place]-MS, ECHO Attphys Unavailable KERRI CASTILLO M.D. Attphys Unavailable LAWRENCE DANIELSON M.D. Attphys Unavailable MOLLY BARRON NP Attphys Unavailable SUNSHINE HANNA NP Attphys Unavailable KACIE MAGDALENO M.D. Attphys Unavailable Payers Payer Name Policy Type Policy Number Effective Date Expiration Date Daphne Diaz Medicare [id number] 2017 00:00:00 [facility] Medicare A & B [id number] [facility] [employer] [id number] [facility] Problems Condition Name Condition Details Condition Category Status Onset Date Resolution Date Last Treatment Date Treating Clinician Comments Source Cervical radiculopathy Problem Active [facility] Left upper extremity numbness Problem Active [facility] History of Chronic Tear Of Left Rotator Cuff Tendon Hi story of Chronic Tear Of Left Rotator Cuff Tendon Problem Resolved [facility] History of abdominal pain History of abdominal pain Problem Resolved [facility] History of Abnormal mammography History of Abnormal mammography Problem Resolved [facility] History of melena History of melena Problem Resolved [facility] History of hyperlipidemia History of hyperlipidemia Problem Resolved [facility] History of Long-term use of Plaquenil History of Long-term u se of Plaquenil Problem Resolved [facility] History of Major depressive disorder, single episode, mild History of Major depressive disorder, single episode, mild Problem Resolved [facility] History of Metallic taste History of Metallic taste Problem Resolved [facility] History of Other acute gastritis without hemorrhage Hi story of Other acute gastritis without hemorrhage Problem Resolved [facility] Encounter for screening mammogram for breast cancer En counter for screening mammogram for breast cancer Problem Active [facility] Hyperglycemia Hyperglycemia Problem Active [facility] Allergic rhinitis, seasonal Allergic rhinitis, seasonal Problem Active [facility] Arthralgia of shoulder region Arthralgia of shoulder region Problem Active [facility] BMI 29.0-29.9,adult BMI 29.0-29.9,adult Problem Active [facility] Degenerative tear of glenoid labrum of left shoulder D egenerative tear of glenoid labrum of left shoulder Problem Active [facility] Generalized osteoarthritis of multiple sites Generaliz ed osteoarthritis of multiple sites [facility] Insomnia Insomnia Problem Active [facility] Nontraumatic tear of supraspinatus tendon, left Nontra umatic tear of supraspinatus tendon, left Problem Active [facility] Osteoarthritis, hip, bilateral Osteoarthritis, hip, bilateral Problem Active [facility] Osteopenia of multiple sites Osteopenia of multiple sites Problem Active [facility] Pharyngoesophageal dysphagia Pharyngoesophageal dysphagia Problem Active [facility] Sicca syndrome Sicca syndrome Problem Active [facility] Unclassifiable eczema Unclassifiable eczema Problem Active [facility] Vitamin D insufficiency Vitamin D insufficiency Problem Active [facility] Pain in both lower extremities Pain in both lower extremities Problem Active [facility] PAOD (peripheral arterial occlusive disease) PAOD (per ipheral arterial occlusive disease) Problem Active [facility] Cervicalgia Cervicalgia Problem Active [facility] Pain of left upper extremity Pain of left upper extremity Problem Active [facility] Mild cognitive impairment Mild cognitive impairment Problem Active [facility] Screening for breast cancer Screening for breast cancer Problem Active [facility] Aneurysm Aneurysm [facility] Chronic venous insufficiency Chronic venous insufficiency Problem Active [facility] Cataract Cataract Problem Active [facility] Hyperlipidemia Hyperlipidemia Problem Active [facility] IBS (irritable bowel syndrome) IBS (irritable bowel syndrome) Problem Active [facility] Varicose veins with complications Varicose veins with complicati ons Problem Active [facility] Gastroesophageal reflux Gastroesophageal reflux Problem Active [facility] Major depressive disorder, recurrent, moderate Major d epressive disorder, recurrent, moderate Problem [facility] Lumbar spondylosis Lumbar spondylosis Problem Active [facility] Knee osteoarthritis Knee osteoarthritis Problem Active [facility] Benign paroxysmal positional vertigo Benign paroxysmal posit ional vertigo Problem Active [facility] Chronic ITP (idiopathic thrombocytopenia) Chronic ITP (idiopathic thrombocytopenia) [facility] Rectal bleeding Rectal bleeding Problem Active [facility] Inflamed acrochordon Inflamed acrochordon Problem Active [facility] GENE positive GENE positive Problem Active [facility] Rib pain on right side Rib pain on right side Problem Active [facility] Pain in scapula Pain in scapula Problem Active [facility] Hyperlipidemia Hype rlipidemia Active 06/25/2013 [facility] Problem Active 2013-06-25 14:20:08 [facility] Paroxysmal Positional Vertigo Benign Paroxysmal Positional Vertigo Active 06/25/2013 [facility] Problem Active 2013-06-25 14:20:08 Yasmany Junior Tingling (Paresthesia) Ting ling (Paresthesia) Active 06/25/2013 [facility] Problem Active 2013-06-25 14:20:08 Yasmany Junior Insomnia Inso mnia Active 06/25/2013 [facility] Problem Active 2013-06-25 14:20:08 Yasmany Junior Thrombophlebitis Of Superficial Vessels Of The Lower E xtremity Thrombophlebitis Of Superficial Vessels Of The Lower Extremity Active 06/25/2013 [facility] Problem Active 2013-06-25 14:20:08 Yasmany Junior Thrombocytopenia Thro mbocytopenia Active 06/25/2013 [facility] Problem Active 2013-06-25 14:20:08 M serina Junior Arthralgia Of The Shoulder Region Arthralgia Of The Shoulder Region Active 06/25/2013 [facility] Problem Active 2013-06-25 14:20:08 Yasmany Junior Allergies, Adverse Reactions, Alerts Allergy Name Allergy Type Status Severity Reaction(s) Onset Date Inacti ve Date Treating Clinician Comments Source Penicillins DA Active U 2018-06-10 00:00:00 [facility] codeine DA Active U 2018-06-10 00:00:00 [facility] clindamycin DA Active U 2018-06-10 00:00:00 [facility] omeprazole DA Active U 2018-06-10 00:00:00 [facility] tramadol DA Active U 2018-06-10 00:00:00 [facility] dicyclomine DA Active U 2018-06-10 00:00:00 [facility] memantine DA Active U 2018-06-10 00:00:00 [facility] celecoxib DA Active U 2018-06-10 00:00:00 [facility] Penicillins DA Active U 2018-06-09 00:00:00 [facility] codeine DA Active U 2018-06-09 00:00:00 [facility] clindamycin DA Active U 2018-06-09 00:00:00 [facility] omeprazole DA Active U 2018-06-09 00:00:00 [facility] tramadol DA Active U 2018-06-09 00:00:00 [facility] dicyclomine DA Active U 2018-06-09 00:00:00 [facility] memantine DA Active U 2018-06-09 00:00:00 [facility] celecoxib DA Active U 2018-06-09 00:00:00 [facility] Penicillins DA Active U 2017-07-20 00:00:00 [facility] codeine DA Active U 2017-07-20 00:00:00 [facility] clindamycin DA Active U 2017-07-20 00:00:00 [facility] omeprazole DA Active U 2017-07-20 00:00:00 [facility] tramadol DA Active U 2017-07-20 00:00:00 [facility] dicyclomine DA Active U 2017-07-20 00:00:00 [facility] memantine DA Active U 2017-07-20 00:00:00 [facility] celecoxib DA Active U 2017-07-20 00:00:00 [facility] Clindamycin Allergy to substance Active 2016-09-10 00:00:00 [facility] Dicyclomine Allergy to substance Active 2016-09-10 00:00:00 [facility] Codeine Allergy to substance Active 2015-11-30 00:00:00 [facility] Tramadol Allergy to substance Active Mild Stomach complai nts, lightheadedness 2015-11-30 00:00:00 [facility] Memantine Allergy to substance Active Moderate Hallucinations 2015-11-30 00:00:00 [facility] Celecoxib Allergy to substance Active Mild Stomach complai nts 2015-11-30 00:00:00 [facility] Penicillin Allergy to substance Active 2015-11-30 00:00:00 [facility] CeleBREX CAPS Allergy to drug (finding) Active [facility] Penicillins Allergy to drug (finding) Active [facility] traMADol HCl TABS Allergy to drug (finding) Active Diarrhea, Constipation, Itching [facility] Codeine Sulfate SOLN Allergy to drug (finding) Active [facility] clindamycin Allergy to drug (finding) Active Diarrhea, Dizziness [facility] dicyclomine Allergy to drug (finding) Active [facility] duloxetine Allergy to drug (finding) Active [facility] Namenda Allergy to drug (finding) Active Hallucinations [facility] oxybutynin Allergy to drug (finding) Active [facility] Codeine Sulfate SOLN Codeine Sulfate SOLN Active [facility] Penicillins Penicillins Active [facility] Family History Family Member Diagnosis Comments Start Date Stop Date Source Mother Family history of Hypertension [facility] Unknown Family Member Family History 2012-09-25 10:17:43 2 10:17:43 [facility] Social History Social Habit Start Date Stop Date Quantity Comments Source Social History 2013-06-25 14:20:08 2013-06-25 14:20:08 [facility] Sex Assigned At 1945 00:00:00 1945 00:00:00 [facility] Smoking Status Start Date Stop Date Source Never smoked tobacco (finding) [facility] Medications Ordered Medication Name Filled Medication Name Start Date Stop Da te Current Medication? Ordering Clinician Indication Dosage Frequency Signature (SIG) Comments Components Source tiZANidine HCl - 2 MG Oral Capsule tiZANidine HCl - 2 MG Ora l Capsule 2019-12-06 00:00:00 Yes SOLANGE HARRISON M.D. 1 TAKE 1 CAPSULE Bedtime PRN muscle pain [facility] Prednisone Prednisone 2019-08-08 16:15:00 Yes 20 Bernice ly [facility] Gabapentin 300 MG Oral Capsule Gabapentin 300 MG Oral Capsul e 2018-04-09 00:00:00 Yes MATILDE ARIAS M.D. 1 Q0.3333D TAKE 1 CAPSULE 3 TIMES DAILY PRN [facility] Omeprazole 40 MG Oral Capsule Delayed Release Omeprazo le 40 MG Oral Capsule Delayed Release 2016-04-20 00:00:00 Yes EDDIE KATE MEDICAL BILLING ASSISTANT 1 QD TAKE 1 CAPSULE BY MOUTH DAILY [facility] Diclofenac Sodium 1 % GEL Diclofenac Sodium 1 % GEL 2015-10-28 00:00: 00 Yes MATILDE ARIAS M.D. Apply 4g t o affected area twice daily as needed for pain. [facility] Calcium 1000 + D 1000-800 MG-UNIT Oral Tablet Calcium 1000 + D 1000-800 MG-UNIT Oral Tablet 2015-07-14 00:00:00 Yes 1 QD TAKE 1 TABLE T DAILY [facility] Atorvastatin Calcium 20 MG Oral Tablet Atorvastatin Calcium 20 MG Oral Tablet 2014-01-13 00:00:00 Yes MATILDE ARIAS M.D. 1 QD TAKE 1 TABLET BY MOUTH DAILY [facility] B-12 2500 MCG Sublingual Tablet Sublingual 2013-06-25 14:20:08 Yes (Active) Yasmany Junior Cyclobenzaprine HCl 5 MG Oral Tablet 2013-06-25 05:00:00 Ye s ; Start Date: 06/25/2013 (Active) Yasmany Karolina nn Meloxicam 7.5 MG Oral Tablet 2013-05-06 05:00:00 Yes ; Start Date: 05/06/2013; End Date: (Active) Yasmany Junior Gabapentin 100 MG Oral Capsule 2013-04-09 06:00:00 Yes ; Start Date: 04/09/2013 (Active) Yasmany Junior Fish Oil CAPS 2013-01-08 19:17:42 Yes (Acti ve) Yasmany [place] Calcium + D TABS 2013-01-08 19:17:42 Yes (A ctive) Yasmany [place] Atorvastatin Calcium 10 MG Oral Tablet 2012-11-26 22:16:38 Yes (Active) Yasmany Junior Amitriptyline HCl 25 MG Oral Tablet 2012-09-24 05:00:00 Yes ; Start Date: 09/24/2012; End Date: (Active) Yasmany Junior Claritin 10 MG Oral Tablet 2012-09-24 05:00:00 Yes ; Start Date: 09/24/2012 (Active) [facility] [place] Atorvastatin Calcium 20 MG Oral Tablet Yes ; Start Date: ; End [facility]: (Active) [facility] At[facility] Calcium Atorvastatin Calcium Yes 20 Today At 9:00PM [facility] Cholecalciferol (Vitamin D3) (Vitamin D) 1,000 Unit TA BLET Cholecalciferol (Vitamin D3) (Vitamin D) 1,000 Unit TABLET Yes [id number] Wkly [facility] Citalopram Hydrobromide (Citalopram Hbr) 20 Mg TABLET Citalopram Hydrobromide (Citalopram Hbr) 20 Mg TABLET Yes 20 Daily [facility] Cyanocobalamin (Vitamin B-12) 1,000 Mcg TAB Cyanocobal cross (Vitamin B-12) 1,000 Mcg TAB Yes 5000 Daily [facility] Diclofenac Sodium (Voltaren) 100 Gm GEL..GRAM. Diclofe nac Sodium (Voltaren) 100 Gm GEL..GRAM. Yes 1 As Needed [facility] Dicyclomine Hcl Dicyclomine Hcl Yes 20 Twice A Day [facility] Donepezil Hcl Donepezil Hcl Yes 5 Bedtime [facility] Gabapentin Gabapentin Yes 600 Bedtime [facility] Omeprazole Omeprazole Yes 40 Daily [facility] B-12 5000 MCG Sublingual Tablet Sublingual B-12 5000 M CG Sublingual Tablet Sublingual Yes 1 tablet twice weekly [facility] HM Vitamin D3 50 MCG (2000 UT) Oral Capsule HM Vitamin D3 50 MCG (2000 UT) Oral Capsule Yes TAKE 1 SOFTGEL DAILY [facility] [place]-3 Fish Oil 1000 MG Oral Capsule [place]-3 Fish Oil 1000 MG Oral Capsule Yes 1 Q0.5D TAKE 1 CAPSULE TWICE DAILY [facility] Cyanocobalamin (Vitamin B-12) (B-12) 2,500 Mcg TAB.SUB L Cyanocobalamin (Vitamin B-12) (B-12) 2,500 Mcg TAB.SUBL 2015-11-30 00:00:00 No [facility] Naproxen Naproxen 2015-11-30 00:00:00 No 500 Every 4 Hours [facility] Omeprazole Omeprazole 2015-11-30 00:00:00 No 20 [facility] Celecoxib (Celebrex*) 100 Mg CAPSULE Celecoxib (Celebrex*) 100 M g CAPSULE 2015-05-27 00:00:00 No 100 Twice A Day [facility] Immunizations Ordered Immunization Name Filled Immunization Name Date Status Comments Source Shingrix 50 MCG Intramuscular Suspension Reconstituted 2018-07-08 00:00:00 Completed [facility] Shingrix 50 MCG Intramuscular Suspension Reconstituted 2018-05-09 00:00:00 Completed [facility] Fluzone High-Dose 0.5 ML Intramuscular Suspension Prefilled Syringe 2017-10-25 11:19:00 Completed [facility] Fluzone Quadrivalent 0.5 ML Intramuscular Suspension 2016-12-07 12:25:00 Completed [facility] Pneumovax 23 25 MCG/0.5ML Injection Injectable 2016-11 12:24:00 Completed [facility] Fluzone Quadrivalent 0.5 ML Intramuscular Suspension 2015-11-04 09:59:00 Completed [facility] Prevnar 13 Intramuscular Suspension 2014-12-22 11:15:00 Co mpleted [facility] Fluzone High-Dose SUSP 2014-12-09 10:43:00 Completed [facility] Influenza 2014-01-28 10:41:00 Completed [facility] Pneumococcal polysaccharide vaccine, 23 valent 2010-08 00:00:00 Completed [facility] Tdap 2005-08-31 00:00:00 Completed [facility] Vital Signs Vital Name Observation Time Observation Value Comments Source Systolic blood pressure 2019-12-06 10:50:00 133 mm[Hg] Loca tion: LUE; Position: Sitting [facility] Diastolic blood pressure 2019-12-06 10:50:00 68 mm[Hg] Loc ation: LUE; Position: Sitting [facility] Body height 2019-12-06 10:50:00 61 [in_us] [facility] Weight 2019-12-06 10:50:00 146 [lb_av] [facility] Body mass index (BMI) [Ratio] 2019-12-06 10:50:00 27.59 kg/m2 [facility] Body temperature 2019-12-06 10:50:00 96.8 [degF] Method: Temporal [facility] Heart Rate 2019-12-06 10:50:00 65 /min [facility] Systolic blood pressure 2019-10-25 13:54:00 119 mm[Hg] [facility] Diastolic blood pressure 2019-10-25 13:54:00 62 mm[Hg] [facility] Body height 2019-10-25 13:54:00 61 [in_us] [facility] Weight 2019-10-25 13:54:00 146 [lb_av] [facility] Body mass index (BMI) [Ratio] 2019-10-25 13:54:00 27.59 kg/m2 [facility] Body temperature 2019-10-25 13:54:00 97.9 [degF] [facility] Heart Rate 2019-10-25 13:54:00 65 /min [facility] Respiratory rate 2019-10-25 13:54:00 16 /min [facility] Weight 2019-08-08 14:20:00 160 [lb_av] [facility] BMI (Body Mass Index) 2019-08-08 14:20:00 30.2 kg/m2 [facility] Systolic blood pressure 2019-07-29 14:49:00 144 mm[Hg] [facility] Diastolic blood pressure 2019-07-29 14:49:00 69 mm[Hg] [facility] Body height 2019-07-29 14:49:00 61 [in_us] [facility] Weight 2019-07-29 14:49:00 146 [lb_av] [facility] Body mass index (BMI) [Ratio] 2019-07-29 14:49:00 27.59 kg/m2 [facility] Body temperature 2019-07-29 14:49:00 97.7 [degF] Method: Temporal [facility] Respiratory rate 2019-07-29 14:49:00 18 /min [facility] Heart Rate 2019-07-29 14:49:00 62 /min [facility] Systolic blood pressure 2019-07-18 15:27:00 145 mm[Hg] [facility] Diastolic blood pressure 2019-07-18 15:27:00 73 mm[Hg] [facility] Systolic blood pressure 2019-07-18 15:26:00 156 mm[Hg] Loca tion: LUE; Position: Sitting [facility] Diastolic blood pressure 2019-07-18 15:26:00 80 mm[Hg] Loc ation: LUE; Position: Sitting [facility] Body height 2019-07-18 15:26:00 61 [in_us] [facility] Weight 2019-07-18 15:26:00 142 [lb_av] [facility] Body mass index (BMI) [Ratio] 2019-07-18 15:26:00 26.83 kg/m2 [facility] Body temperature 2019-07-18 15:26:00 98.2 [degF] Method: Temporal [facility] Heart Rate 2019-07-18 15:26:00 71 /min [facility] Respiratory rate 2019-07-18 15:26:00 16 /min [facility] Systolic blood pressure 2019-06-14 14:53:00 120 mm[Hg] [facility] Diastolic blood pressure 2019-06-14 14:53:00 58 mm[Hg] [facility] Body height 2019-06-14 14:53:00 61 [in_us] [facility] Weight 2019-06-14 14:53:00 143 [lb_av] [facility] Body mass index (BMI) [Ratio] 2019-06-14 14:53:00 27.02 kg/m2 [facility] Body temperature 2019-06-14 14:53:00 97.7 [degF] Method: Temporal [facility] Heart Rate 2019-06-14 14:53:00 65 /min [facility] Respiratory rate 2019-06-14 14:53:00 16 /min [facility] Systolic blood pressure 2019-04-26 14:44:00 114 mm[Hg] Loca tion: LUE; Position: Sitting [facility] Diastolic blood pressure 2019-04-26 14:44:00 68 mm[Hg] Loc ation: LUE; Position: Sitting [facility] Body height 2019-04-26 14:44:00 61 [in_us] [facility] Body mass index (BMI) [Ratio] 2019-04-26 14:44:00 27.21 kg/m2 [facility] Weight 2019-04-26 14:44:00 144 [lb_av] [facility] Heart Rate 2019-04-26 14:44:00 71 /min Location: L Radial; Q uality: Normal [facility] [facility] Systolic blood pressure 2019-04-26 13:51:00 114 mm[Hg] Loca tion: LLE; Position: Sitting [facility] Diastolic blood pressure 2019-04-26 13:51:00 68 mm[Hg] Loc ation: LLE; Position: Sitting [facility] Body height 2019-04-26 13:51:00 61 [in_us] [facility] Weight 2019-04-26 13:51:00 144.5625 [lb_av] [facility] Body mass index (BMI) [Ratio] 2019-04-26 13:51:00 27.32 kg/m2 [facility] Body temperature 2019-04-26 13:51:00 97.3 [degF] Method: Temporal [facility] Respiratory rate 2019-04-26 13:51:00 16 /min [facility] Heart Rate 2019-04-26 13:51:00 71 /min [facility] Systolic blood pressure 2019-03-28 12:56:00 120 mm[Hg] Loca tion: LUE; Position: Sitting [facility] Diastolic blood pressure 2019-03-28 12:56:00 56 mm[Hg] Loc ation: LUE; Position: Sitting [facility] Body height 2019-03-28 12:56:00 61 [in_us] [facility] Weight 2019-03-28 12:56:00 145 [lb_av] [facility] Body mass index (BMI) [Ratio] 2019-03-28 12:56:00 27.4 kg/m2 [facility] Heart Rate 2019-03-28 12:56:00 63 /min Location: L Radial; Q uality: Normal [facility] BP Systolic 2019-03-21 14:28:00 120 mm[Hg] Location: MAR[place]; Positi on: Sitting [facility] BP Diastolic 2019-03-21 14:28:00 64 mm[Hg] Location: MAR[place]ANO; Positi on: Sitting [facility] Height 2019-03-21 14:28:00 61 [in_us] [facility] Weight 2019-03-21 14:28:00 143 [lb_av] [facility] Body Mass Index Calculated 2019-03-21 14:28:00 27.02 kg/m2 [facility] Heart Rate 2019-03-21 14:28:00 74 /min [facility] BP Systolic 2019-02-05 10:38:00 100 mm[Hg] Location: MARCIANO; Positi on: Sitting [facility] BP Diastolic 2019-02-05 10:38:00 62 mm[Hg] Location: SADEE; Positi on: Sitting [facility] Weight 2019-02-05 10:38:00 145 [lb_av] [facility] Body Mass Index Calculated 2019-02-05 10:38:00 27.4 kg/m2 [facility] Height 2019-02-05 10:38:00 61 [in_us] [facility] Temperature 2019-02-05 10:38:00 98.5 [degF] Method: Temporal [facility] Respiration Rate 2019-02-05 10:38:00 16 /min [facility] Heart Rate 2019-02-05 10:38:00 63 /min [facility] BP Systolic 2019-01-29 14:56:00 125 mm[Hg] Location: MARCIANO; Positi on: Sitting [facility] BP Diastolic 2019-01-29 14:56:00 67 mm[Hg] Location: MAR[place]; Positi on: Sitting [facility] Height 2019-01-29 14:56:00 61 [in_us] [facility] Weight 2019-01-29 14:56:00 145 [lb_av] [facility] Body Mass Index Calculated 2019-01-29 14:56:00 27.4 kg/m2 [facility] Heart Rate 2019-01-29 14:56:00 64 /min Location: L Radial; [facility] BP Systolic 2018-10-25 09:09:00 113 mm[Hg] Location: MAR[place]O; Positi on: Sitting [facility] BP Diastolic 2018-10-25 09:09:00 69 mm[Hg] Location: MAR[place]O; Positi on: Sitting [facility] Height 2018-10-25 09:09:00 61 [in_us] [facility] Weight 2018-10-25 09:09:00 146 [lb_av] [facility] Body Mass Index Calculated 2018-10-25 09:09:00 27.59 kg/m2 [facility] Temperature 2018-10-25 09:09:00 97.5 [degF] Method: Temporal [facility] Respiration Rate 2018-10-25 09:09:00 16 /min [facility] Heart Rate 2018-10-25 09:09:00 73 /min [facility] ty [facility] BP Systolic 2018-10-18 12:47:00 109 mm[Hg] Location: LUE; Positi on: Sitting [facility] BP Diastolic 2018-10-18 12:47:00 61 mm[Hg] Location: LUE; Positi on: Sitting [facility] Height 2018-10-18 12:47:00 61 [in_us] [facility] Weight 2018-10-18 12:47:00 148.6 [lb_av] [facility] Body Mass Index Calculated 2018-10-18 12:47:00 28.08 kg/m2 [facility] Heart Rate 2018-10-18 12:47:00 68 /min Location: L Brachial Artery; [facility] Respiration Rate 2018-10-18 12:47:00 18 /min [facility] BP Systolic 2018-09-17 14:15:00 114 mm[Hg] Location: LUE; Positi on: Sitting [facility] BP Diastolic 2018-09-17 14:15:00 61 mm[Hg] Location: LUE; Positi on: Sitting [facility] Height 2018-09-17 14:15:00 61 [in_us] [facility] Body Mass Index Calculated 2018-09-17 14:15:00 28.15 kg/m2 [facility] Weight 2018-09-17 14:15:00 149 [lb_av] [facility] Temperature 2018-09-17 14:15:00 97.8 [degF] Method: Oral [facility] Heart Rate 2018-09-17 14:15:00 62 /min [facility] BP Systolic 2018-09-17 13:29:00 114 mm[Hg] Location: LUE; Positi on: Sitting [facility] BP Diastolic 2018-09-17 13:29:00 61 mm[Hg] Location: LUE; Positi on: Sitting [facility] Height 2018-09-17 13:29:00 61 [in_us] [facility] Body Mass Index Calculated 2018-09-17 13:29:00 28.15 kg/m2 [facility] Weight 2018-09-17 13:29:00 149 [lb_av] [facility] Heart Rate 2018-09-17 13:29:00 62 /min Location: L Radial; [facility] BP Systolic 2018-08-28 12:53:00 113 mm[Hg] Location: MARCIANO; Positi on: Sitting [facility] BP Diastolic 2018-08-28 12:53:00 64 mm[Hg] Location: SADEE; Positi on: Sitting [facility] Height 2018-08-28 12:53:00 61 [in_us] [facility] Body Mass Index Calculated 2018-08-28 12:53:00 28.15 kg/m2 [facility] Weight 2018-08-28 12:53:00 149 [lb_av] [facility] Heart Rate 2018-08-28 12:53:00 59 /min Location: L Radial; [facility] BP Systolic 2018-08-27 16:01:00 106 mm[Hg] Location: MARCIANO; Positi on: Sitting [facility] BP Diastolic 2018-08-27 16:01:00 64 mm[Hg] Location: MAR[place]O; Positi on: Sitting [facility] Height 2018-08-27 16:01:00 61 [in_us] [facility] Body Mass Index Calculated 2018-08-27 16:01:00 27.78 kg/m2 [facility] Weight 2018-08-27 16:01:00 147 [lb_av] [facility] Temperature 2018-08-27 16:01:00 97.4 [degF] Method: Temporal [facility] Heart Rate 2018-08-27 16:01:00 65 /min [facility] Respiration Rate 2018-08-27 16:01:00 16 /min [facility] BP Systolic 2018-07-11 14:43:00 136 mm[Hg] Location: MAR[place]O; Positi on: Sitting [facility] BP Diastolic 2018-07-11 14:43:00 62 mm[Hg] Location: LUE; Positi on: Sitting [facility] Height 2018-07-11 14:43:00 61 [in_us] [facility] Weight 2018-07-11 14:43:00 148 [lb_av] [facility] Body Mass Index Calculated 2018-07-11 14:43:00 27.96 kg/m2 [facility] Temperature 2018-07-11 14:43:00 96 [degF] Method: [facility] Respiration Rate 2018-07-11 14:43:00 16 /min [facility] Heart Rate 2018-07-11 14:43:00 64 /min [facility] BP Systolic 2018-06-21 10:42:00 126 mm[Hg] Location: LUE; Positi on: Sitting [facility] BP Diastolic 2018-06-21 10:42:00 53 mm[Hg] Location: LUE; Positi on: Sitting [facility] Weight 2018-06-21 10:42:00 155 [lb_av] [facility] Body Mass Index Calculated 2018-06-21 10:42:00 29.29 kg/m2 [facility] Height 2018-06-21 10:42:00 61 [in_us] [facility] Temperature 2018-06-21 10:42:00 97.8 [degF] Method: Temporal [facility] Respiration Rate 2018-06-21 10:42:00 16 /min [facility] Heart Rate 2018-06-21 10:42:00 72 /min [facility] BP Systolic 2018-04-09 11:17:00 109 mm[Hg] Location: LUE; Positi on: Sitting [facility] BP Diastolic 2018-04-09 11:17:00 61 mm[Hg] Location: LUE; Positi on: Sitting [facility] Height 2018-04-09 11:17:00 61 [in_us] [facility] Weight 2018-04-09 11:17:00 155.1875 [lb_av] [facility] Body Mass Index Calculated 2018-04-09 11:17:00 29.32 kg/m2 [facility] Temperature 2018-04-09 11:17:00 97.3 [degF] Method: Temporal [facility] Heart Rate 2018-04-09 11:17:00 69 /min [facility] Respiration Rate 2018-04-09 11:17:00 14 /min [facility] BP Systolic 2018-03-19 14:30:00 115 mm[Hg] Location: LUE; Positi on: Sitting [facility] BP Diastolic 2018-03-19 14:30:00 67 mm[Hg] Location: LUE; Positi on: Sitting [facility] Height 2018-03-19 14:30:00 61 [in_us] [facility] Weight 2018-03-19 14:30:00 155.375 [lb_av] [facility] Body Mass Index Calculated 2018-03-19 14:30:00 29.36 kg/m2 [facility] Temperature 2018-03-19 14:30:00 98 [degF] Method: Oral [facility] Heart Rate 2018-03-19 14:30:00 69 /min [facility] BP Systolic 2018-03-05 13:45:00 121 mm[Hg] Location: LUE; Positi on: Sitting [facility] BP Diastolic 2018-03-05 13:45:00 68 mm[Hg] Location: LUE; Positi on: Sitting [facility] Height 2018-03-05 13:45:00 61 [in_us] [facility] Weight 2018-03-05 13:45:00 154.0625 [lb_av] [facility] Body Mass Index Calculated 2018-03-05 13:45:00 29.11 kg/m2 [facility] Temperature 2018-03-05 13:45:00 98.1 [degF] Method: Temporal [facility] Heart Rate 2018-03-05 13:45:00 82 /min [facility] Respiration Rate 2018-03-05 13:45:00 16 /min [facility] BP Systolic 2018-01-15 15:04:00 120 mm[Hg] Location: LUE; Positi on: Sitting [facility] BP Diastolic 2018-01-15 15:04:00 64 mm[Hg] Location: LUE; Positi on: Sitting [facility] Height 2018-01-15 15:04:00 61 [in_us] [facility] Weight 2018-01-15 15:04:00 161.5 [lb_av] [facility] Body Mass Index Calculated 2018-01-15 15:04:00 30.52 kg/m2 [facility] Temperature 2018-01-15 15:04:00 97.6 [degF] Method: Oral [facility] Heart Rate 2018-01-15 15:04:00 71 /min [facility] BP Systolic 2017-10-25 10:44:00 130 mm[Hg] Location: MARCIANO; Positi on: Sitting [facility] BP Diastolic 2017-10-25 10:44:00 64 mm[Hg] Location: MAR[place]; Positi on: Sitting [facility] Height 2017-10-25 10:44:00 61 [in_us] [facility] Weight 2017-10-25 10:44:00 157.4375 [lb_av] [facility] Body Mass Index Calculated 2017-10-25 10:44:00 29.75 kg/m2 [facility] Temperature 2017-10-25 10:44:00 97.1 [degF] Method: Temporal [facility] Respiration Rate 2017-10-25 10:44:00 16 /min [facility] Heart Rate 2017-10-25 10:44:00 64 /min [facility] BP Systolic 2017-09-29 10:53:00 130 mm[Hg] Location: MARCIANO; Positi on: Sitting [facility] BP Diastolic 2017-09-29 10:53:00 78 mm[Hg] Location: MAR[place]; Positi on: Sitting [facility] Height 2017-09-29 10:53:00 61 [in_us] [facility]i [facility] Weight 2017-09-29 10:53:00 155.125 [lb_av] [facility] Body Mass Index Calculated 2017-09-29 10:53:00 29.31 kg/m2 [facility] Temperature 2017-09-29 10:53:00 97.1 [degF] Method: Temporal [facility] Heart Rate 2017-09-29 10:53:00 61 /min [facility] Respiration Rate 2017-09-29 10:53:00 16 /min [facility] BP Systolic 2017-09-14 15:31:00 110 mm[Hg] Location: SADEE; Positi on: Sitting [facility] BP Diastolic 2017-09-14 15:31:00 69 mm[Hg] Location: SADEE; Positi on: Sitting [facility] Height 2017-09-14 15:31:00 61 [in_us] [facility] Weight 2017-09-14 15:31:00 160.6 [lb_av] [facility] Body Mass Index Calculated 2017-09-14 15:31:00 30.35 kg/m2 [facility] Heart Rate 2017-09-14 15:31:00 71 /min [facility] BP Systolic 2017-09-04 11:22:00 126 mm[Hg] Location: MAR[place]; Positi on: Sitting [facility] BP Diastolic 2017-09-04 11:22:00 71 mm[Hg] Location: MAR[place]; Positi on: Sitting [facility] Height 2017-09-04 11:22:00 61 [in_us] [facility] Weight 2017-09-04 11:22:00 159.8 [lb_av] [facility] Body Mass Index Calculated 2017-09-04 11:22:00 30.19 kg/m2 [facility] Heart Rate 2017-09-04 11:22:00 80 /min Location: L Brachial Artery; [facility] Temperature 2017-09-04 11:22:00 97.4 [degF] Method: Oral [facility] Respiration Rate 2017-09-04 11:22:00 18 /min [facility] BP Systolic 2017-08-24 09:03:00 116 mm[Hg] Location: LUE; Positi on: Sitting [facility] BP Diastolic 2017-08-24 09:03:00 72 mm[Hg] Location: SADEE; Positi on: Sitting [facility] Height 2017-08-24 09:03:00 61 [in_us] [facility] Weight 2017-08-24 09:03:00 155.0625 [lb_av] [facility] Body Mass Index Calculated 2017-08-24 09:03:00 29.3 kg/m2 [facility] Temperature 2017-08-24 09:03:00 96.6 [degF] Method: Temporal [facility] Heart Rate 2017-08-24 09:03:00 74 /min [facility] Respiration Rate 2017-08-24 09:03:00 16 /min [facility] BP Systolic 2017-07-06 07:42:00 133 mm[Hg] Location: LUE; Positi on: Sitting [facility] BP Diastolic 2017-07-06 07:42:00 60 mm[Hg] Location: LUE; Positi on: Sitting [facility] BP Systolic 2017-07-06 07:40:00 144 mm[Hg] Location: LUE; Positi on: Sitting [facility] BP Diastolic 2017-07-06 07:40:00 83 mm[Hg] Location: LUE; Positi on: Sitting [facility] Height 2017-07-06 07:40:00 61 [in_us] [facility] Weight 2017-07-06 07:40:00 159.125 [lb_av] [facility] 2017-07-06 07:40:00 30.07 kg/m2 [facility] Temperature 2017-07-06 07:40:00 97.5 [degF] Method: Temporal [facility] Heart Rate 2017-07-06 07:40:00 60 /min [facility] Respiration Rate 2017-07-06 07:40:00 16 /min [facility] BP Systolic 2017-05-08 14:31:00 111 mm[Hg] Location: LUE; Positi on: Sitting [facility] BP Diastolic 2017-05-08 14:31:00 62 mm[Hg] Location: LUE; Positi on: Sitting [facility] Height 2017-05-08 14:31:00 61 [in_us] [facility] Weight 2017-05-08 14:31:00 157.3125 [lb_av] [facility] Body Mass Index Calculated 2017-05-08 14:31:00 29.72 kg/m2 [facility] Temperature 2017-05-08 14:31:00 96.9 [degF] Method: Temporal [facility] Heart Rate 2017-05-08 14:31:00 54 /min Location: L Brachial Artery; [facility] Respiration Rate 2017-05-08 14:31:00 16 /min Quality[facility] BP Systolic 2017-04-19 10:35:00 128 mm[Hg] Location: LUE; Positi on: Sitting [facility] BP Diastolic 2017-04-19 10:35:00 63 mm[Hg] Location: LUE; Positi on: Sitting [facility] Height 2017-04-19 10:35:00 61 [in_us] [facility] Weight 2017-04-19 10:35:00 157.375 [lb_av] [facility] Body Mass Index Calculated 2017-04-19 10:35:00 29.74 kg/m2 [facility] Temperature 2017-04-19 10:35:00 96.3 [degF] Method: Temporal [facility] Respiration Rate 2017-04-19 10:35:00 16 /min [facility] Heart Rate 2017-04-19 10:35:00 64 /min [facility] BP Systolic 2017-03-27 14:53:00 120 mm[Hg] Location: LUE; Positi on: Sitting [facility] BP Diastolic 2017-03-27 14:53:00 67 mm[Hg] Location: LUE; Positi on: Sitting [facility] Height 2017-03-27 14:53:00 61 [in_us] [facility] Weight 2017-03-27 14:53:00 161.5 [lb_av] [facility] Body Mass Index Calculated 2017-03-27 14:53:00 30.52 kg/m2 [facility] Temperature 2017-03-27 14:53:00 98.2 [degF] Method: Oral [facility] Heart Rate 2017-03-27 14:53:00 60 /min [facility] BP Systolic 2017-02-06 15:01:00 122 mm[Hg] Location: LUE; Positi on: Sitting [facility] BP Diastolic 2017-02-06 15:01:00 74 mm[Hg] Location: LUE; Positi on: Sitting [facility] Height 2017-02-06 15:01:00 61 [in_us] [facility] Weight 2017-02-06 15:01:00 158.1875 [lb_av] [facility] Body Mass Index Calculated 2017-02-06 15:01:00 29.89 kg/m2 [facility] Temperature 2017-02-06 15:01:00 97.8 [degF] Method: Temporal [facility] Heart Rate 2017-02-06 15:01:00 61 /min Quality: [facility] Systolic 2017-01-16 15:46:00 90 mm[Hg] Location: LUE; Positi on: Sitting [facility] BP Diastolic 2017-01-16 15:46:00 49 mm[Hg] Location: LUE; Positi on: Sitting [facility] Height 2017-01-16 15:46:00 61 [in_us] [facility] Weight 2017-01-16 15:46:00 160.1875 [lb_av] [facility] Body Mass Index Calculated 2017-01-16 15:46:00 30.27 kg/m2 [facility] Temperature 2017-01-16 15:46:00 97.8 [degF] Method: Temporal [facility] Respiration Rate 2017-01-16 15:46:00 16 /min [facility] Heart Rate 2017-01-16 15:46:00 64 /min [facility] BP Systolic 2016-12-27 14:32:00 105 mm[Hg] Location: LUE; Positi on: Sitting [facility] BP Diastolic 2016-12-27 14:32:00 61 mm[Hg] Location: LUE; Positi on: Sitting [facility] Height 2016-12-27 14:32:00 61 [in_us] [facility] Weight 2016-12-27 14:32:00 161.6 [lb_av] [facility] Body Mass Index Calculated 2016-12-27 14:32:00 30.53 kg/m2 [facility] Heart Rate 2016-12-27 14:32:00 62 /min [facility] BP Systolic 2016-12-07 11:47:00 117 mm[Hg] Location: LUE; Positi on: Sitting [facility] BP Diastolic 2016-12-07 11:47:00 59 mm[Hg] Location: LUE; Positi on: Sitting [facility] Height 2016-12-07 11:47:00 61 [in_us] [facility] Weight 2016-12-07 11:47:00 157.1875 [lb_av] [facility] Body Mass Index Calculated 2016-12-07 11:47:00 29.7 kg/m2 [facility] Heart Rate 2016-12-07 11:47:00 69 /min [facility] Temperature 2016-12-07 11:47:00 97.3 [degF] Method: Temporal [facility] Respiration Rate 2016-12-07 11:47:00 16 /min [facility] BP Systolic 2016-12-06 15:24:00 125 mm[Hg] Location: MARCIANO; Positi on: Sitting [facility] BP Diastolic 2016-12-06 15:24:00 73 mm[Hg] Location: MAR[place]O; Positi on: Sitting [facility] Height 2016-12-06 15:24:00 61 [in_us] [facility] Weight 2016-12-06 15:24:00 158.375 [lb_av] [facility] Body Mass Index Calculated 2016-12-06 15:24:00 29.92 kg/m2 [facility] Heart Rate 2016-12-06 15:24:00 59 /min Location: L Radial; [facility] Procedures Procedure Date / Time Performed Performing Clinician Sour e [QL] CBC (INCLUDES DIFF/PLT) 2019-12-06 00:00:00 [facility] [QL] C-REACTIVE PROTEIN 2019-12-06 00:00:00 [facility] [QL] SED RATE BY MODIFIED WESTERGREN 2019-12-06 00:00:00 [facility] [QL] COMPLEMENT COMP C3 + C4 2019-12-06 00:00:00 [facility] [QL] VITAMIN D, 25-HYDROXY, LC/MS/MS 2019-12-06 00:00:00 [facility] XRAY Ribs unilateral [id number] 2019-12-06 [facility] Scapula frontal and lateral [id number] 2019-12-06 00:00:00 [facility] Skin Tag Removal 2019-10-25 00:00:00 [facility] [QL] LIPID PANEL 2019-10-25 00:00:00 [facility] [QL] TSH, 3RD GENERATION 2019-10-25 00:00[facility]00 [facility] CMP W/EGFR 2019-10-25 00:00:00 [place] [facility] MA Digital Mammo Screening Mauricio [id number] 2019-10-25 00:00:00 [facility] [QL] CMP W/EGFR 2019-07-18 00:00:00 [place] [facility] [QL] SED RATE BY MODIFIED WESTERGREN 2019-07-18 00:00:00 [facility] [QL] CBC (INCLUDES DIFF/PLT) 2019-07-18 00:00:00 [facility] XRAY Spine cervical 2 or 3 view [id number] 2019-07-18 00:00:00 [facility] Computed tomography of abdomen and pelvis without then with contrast 2019-03-27 00:00:00 [facility] [QLH] CBC (INCLUDES DIFF/PLT) 2019-02-05 00:00:00 [facility] CVRAD - Right Lower Venous Uni/Lmt - [id number] 2018-11-27 00:00:00 [facility] [QLH] CMP W/EGFR 2018-10-25 00:00:00 [facility] [QH] LIPID PANEL WITH REFLEX TO DIRECT LDL 2018-10-25 00:00:00 [facility] MA Digital Mammo Screening Mauricio [id number] 2018-10-25 00:00:00 [facility] X-ray of chest, two views 2018-10-14 00:00:00 DEMARCUS SY [facility] Computed tomography of cervical spine without contrast 10-14 00:00:00 DEMARCUS SY [facility] CVRAD - KAMERON - [id number] 2018-09-18 00:00:00 [facility] CVRAD - Lower Venous Comp - [id number] 2018-09-18 00:00:00 [facility] [QLH] CMP W/EGFR 2018-09-17 00:00:00 [facility] [QLH] COMPLEMENT COMPONENT C3C 2018-09-17 00:00:00 [facility] [[facility]] COMPLEMENT COMPONENT C4C 2018-09-17 00:00:00 [facility] [[facility]] C-REACTIVE PROTEIN 2018-09-17 00:00:00 [facility]] DNA (DS) ANTIBODY 2018-09-17 00:00:00 [facility] SED RATE BY MODIFIED WESTERGREN 2018-09-17 00:00:00 [facility] [[facility]] URINALYSIS, COMPLETE W/REFLEX TO CULTURE 2018-09-17 00:00: 00 [facility] CT Abdomen w/wo contrast [id number] 2018-09-17 00:00:00 [facility] Colonoscopy 2018-08-28 00:00:00 [facility] EGD (Esophagogastroduodenoscopy) 2018-08-28 00:00:00 [facility] [[facility]] CBC (INCLUDES DIFF/PLT) 2018-08-27 00:00:00 [facility] [] FECAL GLOBIN BY IMMUNOCHEMISTRY 2018-04-09 00:00:00 [facility] XRAY Hand AP lateral oblique Bilateral [id number] 2018-03-19 00:00:00 [facility] [[facility]] SJOGRENS ANTIBODIES (SS-A,SS-B) 2018-03-05 00:00:00 [facility] [[facility]] TSH, 3RD GENERATION 2018-03-05 00:00:00 [facility] CBC (INCLUDES DIFF/PLT) 2018-03-05 00:00:00 [facility] [QL] CMP W/EGFR 2018-03-05 00:00:00 [facility] [[facility]] GENE PANEL, COMPREHENSIVE 2018-03-05 00:00:00 [facility] US Thyroid [id number] 2018-03-05 00:00:00 [facility] [[facility]] CBC (INCLUDES DIFF/PLT) 2018-01-15 00:00:00 [facility] [QL] CMP W/EGFR 2018-01-15 00:00:00 [facility] [[facility]] COMPLEMENT COMPONENT C3C 2018-01-15 00:00:00 [facility] [[facility]] COMPLEMENT COMPONENT C4C 2018-01-15 00:00:00 [facility] [[facility]] C-REACTIVE PROTEIN 2018-01-15 00:00:00 [facility] DNA (DS) ANTIBODY 2018-01-15 00:00:00 [facility] SED RATE BY MODIFIED DARRENERGREN 2018-01-15 00:00:00 [facility] [[facility]] VITAMIN D, 25-HYDROXY, LC/MS/MS 2018-01-15 00:00:00 [facility] [[facility]] CULTURE, URINE, ROUTINE 2017-09-29 00:00:00 [facility] [[facility]] URINALYSIS, COMPLETE W/REFLEX TO CULTURE 2017-09-14 00:00: 00 [facility] [[facility]] CMP W/EGFR 2017-08-24 00:00:00 [facility] [] LIPID PANEL WITH REFLEX TO DIRECT LDL 2017-08-24 00:00:00 [facility] [[facility]] CBC (INCLUDES DIFF/PLT) 2017-08-24 00:00:00 [facility] MA Digital Mammo Screening Mauricio [id number] 2017-08-24 00:00:00 [facility] MA Bone Density [employer] [id number] 2017-08-24 00:00:00 [facility] [[facility]] CBC (INCLUDES DIFF/PLT) 2017-03-29 00:00:00 [facility] [[facility]] CMP W/EGFR 2017-02-06 00:00:00 [facility] [] LIPID PANEL WITH REFLEX TO DIRECT LDL 2017-02-06 00:00:00 [facility] [[facility]] HEMOGLOBIN A1c 2017-02-06 00:00:00 [facility] CVRAD - Left Lower Venous Uni/Lmt - [id number] 2016-11-16 00:00:00 [facility] History of Open Treatment Of Ankle Dislocation With Fixation [facility] History of Brain Surgery [facility] Plan of Care Planned Activity Planned Date Details Comments Source Diagnostic Test Pending 2018-09-17 00:00:00 CT Abdomen w/wo contrast 16530 [code = 09483] [facility] Diagnostic Test Pending 2018-09-17 00:00:00 CT Abdomen w/wo contrast 03467 [code = 60317] [facility] ns Diagnostic Test Pending 2018-08-31 00:00:00 Colonoscopy [code = 737 58566] [facility] Diagnostic Test Pending 2018-08-31 00:00:00 EGD (Esophagogas troduodenoscopy) [code = EGD (Esophagogastroduodenoscopy)] [facility] Diagnostic Test Pending 2018-08-31 00:00:00 Colonoscopy [code = 737 37141] [facility] Diagnostic Test Pending 2018-08-31 00:00:00 EGD (Esophagogas troduodenoscopy) [code = EGD (Esophagogastroduodenoscopy)] [facility] Diagnostic Test Pending 2018-08-31 00:00:00 Colonoscopy [code = 737 02997] [facility] Diagnostic Test Pending 2018-08-31 00:00:00 EGD (Esophagogas troduodenoscopy) [code = EGD (Esophagogastroduodenoscopy)] [facility] Diagnostic Test Pending 2018-04-10 00:00:00 [Q] FECAL GLOBIN BY IMMUNOCHEMISTRY [code = [Q] FECAL GLOBIN BY IMMUNOCHEMISTRY] [facility] Diagnostic Test Pending 2018-04-10 00:00:00 [Q] FECAL GLOBIN BY IMMUNOCHEMISTRY [code = [Q] FECAL GLOBIN BY IMMUNOCHEMISTRY] [facility] Diagnostic Test Pending 2016-11-16 00:00:00 CVRAD - Left Low er Venous Uni/Lmt - 23229 [code = 78517] [facility] ns Diagnostic Test Pending 2016-10-10 00:00:00 [N] Venous Duple x Lower Unilateral [code = [N] Venous Duplex Lower Unilateral] [facility] Future Scheduled Test 2013-06-25 14:20:08 Plan of Care [code = 1877 6-5] [facility] Scheduled Test 2013-05-06 13:33:08 Plan of Care [code = 1877 6-5] [facility] Scheduled Test 2013-05-02 21:47:00 Plan of Care [code = 1877 6-5] [facility] Scheduled Test 2013-04-10 22:23:30 Plan of Care [code = 1877 6-5] [facility] Scheduled Test 2013-01-08 19:17:42 Plan of Care [code = 1877 6-5] [facility] Scheduled Test 2013-01-03 22:47:31 Plan of Care [code = 1877 6-5] [facility] Scheduled Test 2012-11-27 16:03:38 Plan of Care [code = 1877 6-5] [facility] Scheduled Test 2012-11-26 22:16:38 Plan of Care [code = 1877 6-5] [facility] Scheduled Test 2012-10-09 12:52:10 Plan of Care [code = 1877 6-5] [facility] Scheduled Test 2012-09-27 10:47:48 Plan of Care [code = 1877 6-5] [facility] Scheduled Test 2012-09-25 10:17:43 Plan of Care [code = 1877 6-5] [facility] Scheduled Test [QLH] CBC (INCLUDE S DIFF/PLT) [code = [QLH] CBC (INCLUDES DIFF/PLT)] Approx [id number] [facility] Future Appointment 2020-04-24 14:30:00 Thomas CHEN, [facility] Future Appointment 2020-03-19 15:00:00 Thomas MINOR, [facility] Future Appointment 2020-02-17 14:00:00 Thomas MINOR, [facility] Future Appointment 2020-01-28 13:45:00 PJ KENT, [facility] Instructions Numbness and Tingling [facility] Encounters Start Date/Time End Date/Time Encounter Type Admission Type Attendi [facility] Care Department Encounter ID Source 2019-12-06 11:00:00 2019-12-06 11:00:00 Appointment; SOLANGE HARRISON M.D. GIBSON, MARY CATHERINE, M.D. [facility] [id number] [facility] 2019-10-25 14:15:00 2019-10-25 14:15:00 Appointment; IMELDA ARIAS M.D. BORTOLOTTI, JULIE, M.D. [facility] [id number] [facility] 2019-10-09 10:00:00 2019-10-09 10:00:00 Appointment; COLTON JEROME M.D. GOMEZ-RIVERA, FERNANDO, M.D. [facility] [place] rhinolaryngology [facility] [id number] [facility] 2019-08-08 14:14:00 2019-08-08 16:55:00 Departed Emergency Room 1 BAY ALSTON [facility] [id number] [facility] 2019-07-29 15:15:00 2019-07-29 15:15:00 Appointment; DONTE SINGH PA CATALANO, MARC, PA [facility] [id number] [facility] 2019-07-18 15:30:00 2019-07-18 15:30:00 Appointment; IMELDA ARIAS M.D. BORTOLOTTI, JULIE, M.D. [facility] [id number] [facility] 2019-06-14 15:00:00 2019-06-14 15:00:00 Appointment; IMELDA ARIAS M.D. BORTOLOTTI, JULIE, M.D. [facility] [id number] [facility] 2019-04-26 15:15:00 2019-04-26 15:15:00 Appointment; DONTE SINGH PA CATALANO, MARC, PA [facility] [id number] [facility] 2019-04-26 13:45:00 2019-04-26 13:45:00 Appointment; IMELDA ARIAS M.D. BORTOLOTTI, JULIE, M.D. [facility] [id number] [facility] 2019-03-28 13:15:00 2019-03-28 13:15:00 Appointment; DONTE SINGH PA CATALANO, MARC, PA [facility], [address] [id number] [facility] 2019-03-27 06:04:00 2019-03-27 06:04:00 Registered Clinic 3 ECHAVARRIA MPEL, YADIEL [facility] [id number] [facility] 2019-03-21 14:30:00 2019-03-21 14:30:00 Appointment; SOLANGE HARRISON M.D. GIBSON, MARY CATHERINE, M.D. [facility], [address] [id number] [facility] 2019-02-05 10:45:00 2019-02-05 10:45:00 Appointment; MONICA ROSAS D.O. YEH, SHAO-CHUN, D.O. [facility] [id number] [facility] 2019-01-29 16:00:00 2019-01-29 16:00:00 Appointment; DONTE SINGH PA CATALANO, MARC, PA [facility], [address] [id number] [facility] 2019-01-14 14:15:00 2019-01-14 14:15:00 Appointment; DONTE SINGH PA CATALANO, MARC, PA [facility] [id number] [facility] 2018-12-11 09:30:00 2018-12-11 09:30:00 Appointment; LEXIE WILSON M.D. MARTIN, GORDON, M.D. [facility] Thoracic Surgery [facility] [id number] [facility] 2018-11-27 09:30:00 2018-11-27 09:30:00 Appointment; VASCULAR, SE VASCULAR, SE [facility] Thoracic Surgery [facility] [id number] [facility] 2018-11-23 06:13:00 2018-11-23 06:13:00 Outpatient SE [facility] 7502 [facility] 2018-10-25 10:00:00 2018-10-25 10:00:00 Appointment; IMELDA ARIAS M.D. BORTOLOTTI, JULIE, M.D. [facility] [id number] [facility] 2018-10-25 09:30:00 2018-10-25 09:30:00 Appointment; IMELDA ARIAS M.D. BORTOLOTTI, JULIE, M.D. [facility], [address] [id number] [facility] 2018-10-18 13:00:00 2018-10-18 13:00:00 Appointment; DONTE SINGH PA CATALANO, MARC, PA [facility], [address] [id number] [facility] 2018-10-14 16:58:00 2018-10-14 18:40:00 Departed Emergency Room 1 ABDULLAHI LOMBARDO [facility] [id number] [facility] 2018-10-09 08:45:00 2018-10-09 08:45:00 Appointment; LEXIE WILSON M.D. MARTIN, GORDON, M.D. [facility] Cardiothoracic & Vascular Surgery [facility] [id number] [facility] 2018-09-18 11:30:00 2018-09-18 11:30:00 Appointment; VASCULAR, SE VASCULAR, SE [facility] [id number] [facility] 2018-09-18 11:00:00 2018-09-18 11:00:00 Appointment; VASCULAR, SE VASCULAR, SE [facility] Thoracic Surgery [facility] [id number] [facility] 2018-09-17 14:30:00 2018-09-17 14:30:00 Appointment; SOLANGE HARRISON M.D. SOLANGE HARRISON M.D. [facility] Rheumatology [id number] [facility] 2018-09-17 13:30:00 2018-09-17 13:30:00 Appointment; DONTE SINGH PA CATALANO, MARC, PA [facility], [address] [id number] [facility] 2018-09-04 10:30:00 2018-09-04 10:30:00 Appointment; LEXIE WILSON M.D. MARTIN, GORDON, M.D. [facility] Thoracic Surgery [facility] [id number] [facility] 2018-08-31 09:40:00 2018-08-31 09:40:00 Outpatient [facility] [address] 2018-08-28 13:00:00 2018-08-28 13:00:00 Appointment; DONTE SINGH PA CATALANO, MARC, PA [facility], [address] [id number] [facility] 2018-08-27 16:00:00 2018-08-27 16:00:00 Appointment; IMELDA ARIAS M.D. BORTOLOTTI, JULIE, M.D. [facility], [address] [id number] [facility] 2018-07-11 15:00:00 2018-07-11 15:00:00 Appointment; ANGELA CHEUNG P.A. SPOONER, JOSEPH, P.A. [facility] [id number] [facility] 2018-06-21 10:30:00 2018-06-21 10:30:00 Appointment; MONICA ROSAS D.O. YEH, SHAO-CHUN, D.O. [facility] [address] [id number] [facility] 2018-04-20 14:00:00 2018-04-20 14:00:00 Appointment; IMELDA ARIAS M.D. BORTOLOTTI, JULIE, M.D. [facility] [id number] [facility] 2018-04-09 11:00:00 2018-04-09 11:00:00 Appointment; IMELDA ARIAS M.D. BORTOLOTTI, JULIE, M.D. [facility] [address] [id number] [facility] 2018-03-19 15:00:00 2018-03-19 15:00:00 Appointment; SOLANGE HARRISON M.D. GIBSON, MARY CATHERINE, M.D. [facility] [id number] [facility] 2018-03-19 10:45:00 2018-03-19 10:45:00 Appointment; IMELDA ARIAS M.D. BORTOLOTTI, JULIE, M.D. [facility] [id number] [facility] 2018-03-05 14:45:00 2018-03-05 14:45:00 Appointment; IMELDA ARIAS M.D. BORTOLOTTI, JULIE, M.D. [facility] [address] [id number] [facility] 2018-01-15 15:00:00 2018-01-15 15:00:00 Appointment; SOLANGE HARRISON M.D. GIBSON, MARY CATHERINE, M.D. [facility] tiSpecialty [address] [id number] [facility] 2017-10-25 10:45:00 2017-10-25 10:45:00 Appointment; IMELDA ARIAS M.D. BORTOLOTTI, JULIE, M.D. [facility] [address] [id number] [facility] 2017-09-29 11:00:00 2017-09-29 11:00:00 Appointment; BALTAZAR JO P.A. CRUZ, LETICIA, P.A. [facility] [id number] [facility] 2017-09-12 13:53:00 2017-09-19 23:59:[address] [facility] [id number] [facility] 2017-09-14 15:30:00 2017-09-14 15:30:00 Appointment; SOLANGE HARRISON M.D. GIBSON, MARY CATHERINE, M.D. [facility] [id number] [facility] 2017-09-04 11:45:00 2017-09-04 11:45:00 Appointment; DONTE SINGH M.D. CATALANO, MARC, [facility].D. [facility] [address] [id number] [facility] 2017-08-24 09:00:00 2017-08-24 09:00:00 Appointment; IMELDA ARIAS M.D. BORTOLOTTI, JULIE, M.D. [facility] [address] [id number] [facility] 2017-07-06 07:30:00 2017-07-06 07:30:00 Appointment; RODNEY MONTENEGRO P.A. CAMPOS, BERTHA, P.A. [facility] [id number] [facility] 2017-05-08 14:15:00 2017-05-08 14:15:00 Appointment; IMELDA ARIAS M.D. BORTOLOTTI, JULIE, M.D. [facility] [id number] [facility] 2017-04-19 10:30:00 2017-04-19 10:30:00 Appointment; ANGELA CHEUNG P.A. SPOONER, JOSEPH, P.A. [facility] [address] [id number] [facility] 2017-03-27 15:00:00 2017-03-27 15:00:00 Appointment; SOLANGE HARRISON M.D. GIBSON, MARY CATHERINE, M.D. [facility] [id number] [facility] 2017-02-06 15:00:00 2017-02-06 15:00:00 Appointment; IMELDA ARIAS M.D. BORTOLOTTI, JULIE, M.D. [facility] [address] [id number] [facility] 2017-01-23 13:00:00 2017-01-23 13:00:00 Appointment; ARSALAN YIN CHRISTINE [facility] [id number] [facility] 2017-01-16 15:30:00 2017-01-16 15:30:00 Appointment; IMELDA ARIAS M.D. BORTOLOTTI, JULIE, M.D. [facility] [address] [id number] [facility] 2016-12-27 14:30:00 2016-12-27 14:30:00 Appointment; SOLANGE HARRISON M.D. GIBSON, MARY CATHERINE, M.D. [facility] [id number] [facility] 2016-12-07 11:45:00 2016-12-07 11:45:00 Appointment; IMELDA ARIAS M.D. BORTOLOTTI, JULIE, M.D. [facility] [id number] [facility] 2016-12-06 10:45:00 2016-12-06 10:45:00 Appointment; VIRGIL POE M.D. HARLIN, STUART, M.D. [facility] [id number] [facility] 2016-11-16 09:00:00 2016-11-16 09:00:00 Appointment; VASCULAR, SE VASCULAR, SE [facility] [id number] [facility] 2016-11-07 11:45:00 2016-11-07 11:45:00 Appointment; DONTE SINGH M.D. CATALANO, MARC, M.D. [facility] UTP [id number] [facility] 2016-11-07 11:45:00 2016-11-07 11:45:00 Appointment; DONTE SINGH M.D. CATALANO, MARC, M.D. [facility] UTP [id number] [facility] 2016-10-11 09:15:00 2016-10-11 09:15:00 Appointment;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 patients >49 years of age, the reference limitfor Creatinine is approximately 13% higher for peopleidentified as -Mozambican. eGFR NON- (test code = eGFR NON-SUNDAR N JORDANIAN) 97 {ML/MIN/1.7} > OR = 60 N [...] N BILIRUBIN, TOTAL; Normal (test code = 30924-6) 0.4 mg/dl 0.2-1.2 N ALKALINE PHSPHATASE (test code = ALKALINE PHSPHATASE) 91 u/l 33-130 N AST; Normal (test code = 1916-6) 14 u/l 10-35 N ALT; Normal (test code = 1742-6) 9 u/l 6-29 N [facility]] SED RATE BY MODIFIED [id number] 00:00:00* Test Item Value Reference Range Interpretation Comments SED RATE BY MODIFIED WESTERGREN (test code = SED RATE BY MODIFIED WESTERGREN) 19 mm/h < OR = 30 N [facility]] URINALYSIS, COMPLETE W/REFLEX TO CULTURE 2018-09-17 00:00:00* [...] NEGATIVE N BILIRUBIN; Normal (test code = 83054-0) NEGATIVE NEGATIVE N KETONES; Abnormal (test code = 57305-5) TRACE NEGATIVE A OCCULT BLOOD; Normal (test code = 40364-9) NEGATIVE NEGATIVE N PROTEIN; Normal (test code = 85702-0) NEGATIVE NEGATIVE N NITRITE (test code = NITRITE) NEGATIVE NEGATIVE N LEUKOCYTE ESTERASE (test code = LEUKOCYTE ESTERASE) TRACE NE GATIVE A WBC; Normal (test code = 6690-2) 0-5 < OR = 5 N RBC; Normal (test code = 789-8) 0-2 < OR = 2 N SQUAMOUS EPITHELIAL CELLS; Normal (test code = 25887-4) NONE SEEN < OR = 5 N BACTERIA; Normal (test code = 630-4) NONE SEEN NONE SEEN N HYALINE CAST; Normal (test code = 42048-0) NONE SEEN NONE SEEN N [facility][] REFLEXIVE URINE [id number] 00:00:00* Test Item Value Reference Range Interpretation Comments REFLEXIVE URINE CULTURE (test code = REFLEXIVE URINE C ULTURE) CULTURE INDICATED - RESULTS TO FOLLOW [facility]] DNA (DS) [id number] 00:00:00* Test Item Value Reference Range Interpretation Comments DNA (DS) ANTIBODY (test code = DNA (DS) ANTIBODY) <1 N IU/mL Interpretation < or = 4 Negative 5-9 Indeterminate > or = 10 Positive [facility]] COMPLEMENT COMPONENT [id number] 00:00:00 * Test Item Value Reference Range Interpretation Comments COMPLEMENT COMPONENT C3C (test code = COMPLEMENT COMPONENT C 3C) 162 mg/dl 83-193 N [facility]] COMPLEMENT COMPONENT [id number] 00:00:00 * Test Item Value Reference Range Interpretation Comments COMPLEMENT COMPONENT C4C (test code = COMPLEMENT COMPONENT C4C) 34 mg/dl 15-57 N [facility]] C-REACTIVE [id number] 00:00:00* Test Item Value Reference Range Interpretation Comments C-REACTIVE PROTEIN (test code = C-REACTIVE PROTEIN) 1.4 mg/L <8 .0 N [facility]] CULTURE, URINE, [id number] 00:00:00* Test Item Value Reference Range Interpretation Comments CULTURE (test code = CULTURE) See Comment CULTURE, URINE, ROUTINE MICRO NUMBER: [id number] TEST STATUS: FINAL SPECIMEN SOURCE: URINE SPECIMEN QUALITY: ADEQUATE RESULT: No Growth [facility] PhysiciansXRAY Hand AP lateral oblique Bilateral [id number] 2018-08-28 10:10:00EXAM: XR BILATERAL HAND 3 VIEWSDATE: 08/28/2018 10:10 CDTINDICATION: - generalized osteroarthritis of multiple sitesCOMPARISON: NoneTECHNIQUE: PA, lateral and oblique radiographs of the bilateral hands.FINDINGS: No acute fracture or malalignment is identified. Mild narrowing ofthe interphalangeal joints visualized.No soft tissue abnormality is identified.IMPRESSION: No significant radiographic abnormality.--Read by: Rehan Oliva MDDictated Date/time: 08/28/18 10:58Electronically Signed by: Rehan Oliva MD 08/28/1909:59FINAL REPORT [facility]] CBC (INCLUDES DIFF/PLT)2018-08-28 09:24:00* Test Item Value Reference Range Interpretation Comments WHITE BLOOD CELL COUNT (test code = WHITE BLOOD CELL COUNT) 5.2 {Thousand/u} 3.8-10.8 N RED BLOOD CELL COUNT (test code = RED BLOOD CELL COUNT) 4.17 {Million/uL} 3.80-5.10 N HEMAGLOBIN; Normal (test code = 95152-5) 12.7 g/dl 11.7-15.5 N HEMATOCRIT; Normal (test code = 4544-3) 38.5 % 35.0-45.0 N MCV; Normal (test code = 787-2) 92.3 fL 80.0-100.0 N MCHC; Normal (test code = 97338-7) 33.0 g/dl 32.0-36.0 N RDW; Normal (test code = 788-0) 13.4 % 11.0-15.0 N PLATELET COUNT; Below Low Threshold (test code = 777-3) 133 {Thousand/u} 140-400 MPV; Above High Threshold (test code = 26923-5) 12.8 fL 7.5-12 .5 ABSOLUTE NEUTROPHILS (test code = ABSOLUTE NEUTROPHILS) 2605 {cells/uL} 3949-2152 N ABSOLUTE LYMPHOCYTES (test code = ABSOLUTE [...] % N MONOCYTES; Normal (test code = 92628-5) 10.2 % N EOSINOPHILS; Normal (test code = 02798-0) 1.0 % N BASOPHILS; Normal (test code = 05320-5) 0.8 % N [id number] 12:09:00* Test Item Value Reference Range Interpretation Comments TROPONIN-I (test code = TROPI) <0.015 ng/mL 0-0.045 N COMMENTS TO CRM SPECIALIST: COLLECT 3 HOURS AFTER PREVIOUS [id number] 02:24:00* Test Item Value Reference Range Interpretation Comments TROPONIN-I (test code = TROPI) <0.015 ng/mL 0-0.045 N COMMENTS TO CRM SPECIALIST: COLLECT 3 HOURS AFTER PREVIOUS SAMPLEBASIC METABOLIC [id number] 22:02:00* Test Item Value Reference Range Interpretation [...] code = CA) 9.4 mg/dL 8.5-10.1 N [id number] 22:02:00* Test Item Value Reference Range Interpretation Comments TROPONIN-I (test code = TROPI) <0.015 ng/mL 0-0.045 N CBC W/O [id number] 21:47:00* Test Item Value Reference Range Interpretation [...] MPV) 12.1 fL 6.7-11.0 H BASIC METABOLIC [id number] 21:44:00* Test Item Value Reference Range Interpretation [...] CALCIUM (test code = CA) mg/dL 8.5-10.1 [id number] 21:44:00* Test Item Value Reference Range Interpretation Comments TROPONIN-I (test code = TROPI) ng/mL 0-0.045 CBC W/O [id number] 21:41:00* Test Item Value Reference Range Interpretation [...] MPV) fL 6.7-11.0 - CT HEAD/BRAIN W/O [id number] 21:41:00 Name: SKY CATALAN [facility] : 1945 Age/S: 72 / F [address] [facility] Unit #: [id number] Loc: SHIRA [place] [address] Phys: Saroj Casas MD Acct: [id number] Dis Date: Status: REG ER PHONE #: [phone] Exam Date: 06/09/2018 2130 FAX #: [phone] Reason: L arm numb, h/o ICH EXAMS: CPT CODE: [id number] CT HEAD/BRAIN W/O CONT 03957 HISTORY: Left arm numbness and prior hemorrhage. [...] ) t.SDR.TH4 Orig Print D/T: S: 06/09/2018 (2144) C TDI: DLP: PAGE 1 Signed Report - XR CHEST 1 [id number] 21:33:00 FAX: Saroj Casas MD [phone] [place]: B St: REG Name: SKY TODD [facility] : [birth year] Age/S: 72/F Becky Boudreaux Unit #: [id number] Loc: SHIRA [place] [address] Phys: Saroj Casas MD Acct: [id number] Dis Date: Status: REG ER PHONE #: [phone] Exam Date: 06/09/20182127 FAX #: [phone] Reason: CHEST PAIN EXAMS: CPT CODE: [id number] XR CHEST 1 V 33311 HISTORY: Chest pain. COMPARISON: None available. No [...] 1 Signed Report [Q] FECAL GLOBIN BY [id number] 00:00:00* Test Item Value Reference Range Interpretation Comments FECAL GLOBIN BY IMMUNOCHEMISTRY (test code = 32087-2) See Comment FECAL GLOBIN BY IMMUNOCHEMISTRY MICRO NUMBER: [id number] TEST STATUS: FINAL SPECIMEN SOURCE: [facility] () FOBT TEST CARD SPECIMEN QUALITY: ADEQUATE RESULT: Not Detected [facility] Thyroid [id number] 11:48:00EXAM:Thyroid ultrasound.CLINICAL HX: Pharyngeal esophageal dysphagia. 787.24. [...] ACR Thyroid Imaging, Reporting and Data System(TI-RADS): W dong Paper of the ACR TI-RADS Committee. JACR. 2017; 14(5):587-595.--Read by: Beau Clark MDDictated Date/time: 03/13/18 12:09Electronically Sherrie d by: Beau Casas MD 03/13/1911:10FINAL REPORT [facility] METABOLIC [id number] 15:07:00* Test Item Value Reference Range Interpretation [...] CA) 9.0 mg/dL 8.5-10.1 N HEPATIC FUNCTION [id number] 15:07:00* Test Item Value Reference Range Interpretation [...] reference range due to change in reagent. [id number] 15:07:00* Test Item Value Reference Range Interpretation Comments LIPASE (test code = LIP) 133 U/L 73.0-393.0 N [id number] 15:07:00* Test Item Value Reference Range Interpretation Comments TROPONIN-I (test code = TROPI) <0.015 ng/mL 0-0.045 N CBC W/O [id number] 15:04:00* Test Item Value Reference Range Interpretation [...] MPV) 12.5 fL 6.7-11.0 H BASIC METABOLIC [id number] 14:53:00* Test Item Value Reference Range Interpretation [...] code = CA) mg/dL 8.5-10.1 HEPATIC FUNCTION [id number] 14:53:00* Test Item Value Reference Range Interpretation [...] TOTAL (test code = ALKP) IUnit/L 45-117 [id number] 14:53:00* Test Item Value Reference Range Interpretation Comments LIPASE (test code = LIP) U/L 73.0-393.0 [id number] 14:53:00* Test Item Value Reference Range Interpretation Comments TROPONIN-I (test code = TROPI) ng/mL 0-0.045 URINALYSIS [id number] 14:25:00* Test Item Value Reference Range Interpretation [...] FEW #/LPF FEW Urine Source? Clean CatchURINALYSIS [id number] 14:24:00* Test Item Value Reference Range Interpretation [...] per HPF FEW Urine Source? Clean CatchURINALYSIS [id number] 14:23:00* Test Item Value Reference Range Interpretation [...] WBCU) per HPF 0-5 Urine Source? Clean Catch[[facility]] GENE PANEL, [id number] 14:36:00* Test Item Value Reference Range Interpretation [...] FAQs for interpretation of allantibodies in the [place], prevalence, and associationwith diseases at http://education.TwoF/faq/SPT372 DNA (DS) ANTIBODY (test code = DNA (DS) ANTIBODY) <1 N IU/mL Interpretation < or = 4 Negative 5-9 Indeterminate > or = 10 Positive SCL-70 ANTIBODY (test code = SCL-70 ANTIBODY) <1.0 NEG <1.0 NEG N SM ANTIBODY (test code = SM ANTIBODY) <1.0 NEG <1.0 NEG N SM/WINE MASTER ANTIBODY (test code = SM/WINE MASTER ANTIBODY) <1.0 NEG <1.0 NEG N SJOGRENS ANTIBODY (SS-A) (test code = SJOGRENS ANTIBODY (SS- A)) <1.0 NEG <1.0 NEG N SJOGRENS ANTIBODY (SS-B) (test code = SJOGRENS ANTIBODY (SS- B)) <1.0 NEG <1.0 NEG N [facility]] CMP [id number] 14:36:00* Test Item Value Reference Range Interpretation Comments GLUCOSE; Normal (test code = 1547-9) 94 mg/dl 65-139 N Non-fasting reference interval UREA NITROGEN (BUN) (test code = UREA NITROGEN (BUN)) 9 mg/dl 7-25 N CREATININE (test code = CREATININE) 0.56 mg/dl 0.60-0.93 For patients >49 years of age, the reference limitfor Creatinine is approximately 13% higher for peopleidentified as -Mozambican. eGFR NON- (test code = eGFR NON-SUNDAR N JORDANIAN) 93 {ML/MIN/1.7} > OR = 60 N [...] N BILIRUBIN, TOTAL; Normal (test code = 75934-2) 0.3 mg/dl 0.2-1.2 N ALKALINE PHSPHATASE (test code = ALKALINE PHSPHATASE) 79 u/l 33-130 N AST; Normal (test code = 1916-6) 13 u/l 10-35 N ALT; Normal (test code = 1742-6) 8 u/l 6-29 N [facility]] CBC (INCLUDES DIFF/PLT)2018-03-05 14:36:00* Test Item Value Reference Range Interpretation Comments WHITE BLOOD CELL COUNT (test code = WHITE BLOOD CELL COUNT) 5.8 {Thousand/u} 3.8-10.8 N RED BLOOD CELL COUNT (test code = RED BLOOD CELL COUNT) 4.42 {Million/uL} 3.80-5.10 N HEMAGLOBIN; Normal (test code = 18650-7) 13.0 g/dl 11.7-15.5 N HEMATOCRIT; Normal (test code = 4544-3) 40.0 % 35.0-45.0 N MCV; Normal (test code = 787-2) 90.5 fL 80.0-100.0 N MCHC; Normal (test code = 19517-7) 32.5 g/dl 32.0-36.0 N RDW; Normal (test code = 788-0) 13.1 % 11.0-15.0 N PLATELET COUNT; Below Low Threshold (test code = 777-3) 129 {Thousand/u} 140-400 MPV; Above High Threshold (test code = 19100-9) 12.9 fL 7.5-12 .5 ABSOLUTE NEUTROPHILS (test code = ABSOLUTE NEUTROPHILS) 3283 {cells/uL} 4365-1657 N ABSOLUTE LYMPHOCYTES (test code = ABSOLUTE [...] % N MONOCYTES; Normal (test code = 97469-2) 7.6 % N EOSINOPHILS; Normal (test code = 40114-6) 0.9 % N BASOPHILS; Normal (test code = 20546-3) 1.2 % N [facility][] Antinuclear Antibody, Titer and Pattern 2018-03-05 14:36:00* Test Item Value Reference Range Interpretation Comments GENE PATTERN (test code = GENE PATTERN) HOMOGENEOUS A Homogeneous pattern is associated with systemic lupuserythematosus (SLE), drug induced lupus and juvenileidiopathic arthritis. GENE TITER (test code = GENE TITER) 1:160 Reference Range <1:40 Negative 1:40-1:80 Low Antibody Level >1:80 Elevated Antibody Level [facility]] TSH, 3RD [id number] 14:36:00* Test Item Value Reference Range Interpretation Comments TSH; Normal (test code = 88200-2) 1.56 {MIU/L} 0.40-4.50 N [facility]] CMP [id number] 15:45:00* Test Item Value Reference Range Interpretation Comments GLUCOSE; Normal (test code = 1547-9) 125 mg/dl 65-139 N Non-fasting reference interval UREA NITROGEN (BUN) (test code = UREA NITROGEN (BUN)) 12 mg/dl 7-25 N CREATININE (test code = CREATININE) 0.57 mg/dl 0.60-0.93 For patients >49 years of age, the reference limitfor Creatinine is approximately 13% higher for peopleidentified as -Mozambican. eGFR NON- (test code = eGFR NON-SUNDAR N JORDANIAN) 93 {ML/MIN/1.7} > OR = 60 N [...] N BILIRUBIN, TOTAL; Normal (test code = 83939-7) 0.3 mg/dl 0.2-1.2 N ALKALINE PHSPHATASE (test code = ALKALINE PHSPHATASE) 86 u/l 33-130 N AST; Normal (test code = 1916-6) 15 u/l 10-35 N ALT; Normal (test code = 1742-6) 9 u/l 6-29 N [facility]] SED RATE BY MODIFIED [id number] 15:45:00* Test Item Value Reference Range Interpretation Comments SED RATE BY MODIFIED WESTERGREN (test code = SED RATE BY MODIFIED WESTERGREN) 17 mm/h < OR = 30 N [facility]] CBC (INCLUDES DIFF/PLT)2018-01-15 15:45:00* Test Item Value Reference Range Interpretation Comments WHITE BLOOD CELL COUNT (test code = WHITE BLOOD CELL COUNT) 6.4 {Thousand/u} 3.8-10.8 N RED BLOOD CELL COUNT (test code = RED BLOOD CELL COUNT) 4.13 {Million/uL} 3.80-5.10 N HEMAGLOBIN; Normal (test code = 02946-1) 12.4 g/dl 11.7-15.5 N HEMATOCRIT; Normal (test code = 4544-3) 36.7 % 35.0-45.0 N MCV; Normal (test code = 787-2) 88.9 fL 80.0-100.0 N MCHC; Normal (test code = 89760-1) 33.8 g/dl 32.0-36.0 N RDW; Normal (test code = 788-0) 13.6 % 11.0-15.0 N PLATELET COUNT; Below Low Threshold (test code = 777-3) 119 {Thousand/u} 140-400 MPV; Above High Threshold (test code = 50482-9) 12.6 fL 7.5-12 .5 ABSOLUTE NEUTROPHILS (test code = ABSOLUTE NEUTROPHILS) 3430 {cells/uL} 9603-4007 N ABSOLUTE LYMPHOCYTES (test code = ABSOLUTE [...] % N MONOCYTES; Normal (test code = 04525-4) 7.7 % N EOSINOPHILS; Normal (test code = 35702-4) 1.3 % N BASOPHILS; Normal (test code = 10111-7) 0.9 % N [facility]] DNA (DS) [id number] 15:45:00* Test Item Value Reference Range Interpretation Comments DNA (DS) ANTIBODY (test code = DNA (DS) ANTIBODY) 1 {IU/ml} N IU/mL Interpretation < or = 4 Negative 5-9 Indeterminate > or = 10 Positive [facility]] COMPLEMENT COMPONENT [id number] 15:45:00 * Test Item Value Reference Range Interpretation Comments COMPLEMENT COMPONENT C3C (test code = COMPLEMENT COMPONENT C 3C) 146 mg/dl 83-193 N [facility]] COMPLEMENT COMPONENT [id number] 15:45:00 * Test Item Value Reference Range Interpretation Comments COMPLEMENT COMPONENT C4C (test code = COMPLEMENT COMPONENT C4C) 31 mg/dl 15-57 N [facility]] C-REACTIVE [id number] 15:45:00* Test Item Value Reference Range Interpretation Comments C-REACTIVE PROTEIN (test code = C-REACTIVE PROTEIN) 1.9 mg/L <8 .0 N [facility]] VITAMIN D, 25-HYDROXY, LC/MS/[id number] 15:45:00* Test Item Value Reference Range Interpretation [...] D, (D2,D3), LC/MS/MS is recommended: order code 36165 (patients >2yrs). For more information on this test, go to:http://education.[employer] II/faq/AYI677(This link is being provided for informational/educational purposes only.) [facility][O] Hemoglobin A1c (in office)2017-10-25 10:53:00 * Test Item Value Reference Range Interpretation Comments HEMOGLOBIN A1c; Normal (test code = 4548-4) 5.5 N [facility] Bone Density [employer] [id number] 11:21:00BONE DENSITY ASSESSMENT: 10/17/2017CLINICAL DATA: Post menopausal. [...] evaluation was performed 10/17/2017 on the AP L1-F7zzudlp of spine using a Hologic unit. The [...] risk for fracture. This exam was interpreted [id number] for AIME Negrete 15. Ge Pedroza M.D., cm/penamna:10/17/2017 13:25:08 Overhead Cleaner Maintainer(s): Rehana COHEN(Shauna)(M), [facility]--Read by: Rod Melara MDDictated Date/time: 10/17/17 13:25Electronically Signed by: Rod Melara MD 10/17/1812:25FINAL REPORTJordan [facility] Digital Mammo Screening Mauricio [id number] 11:20:00BILATERAL DIGITAL SCREENING MAMMOGRAM WITH CAD: 10/17/2017CLINICAL: Z12.31 Encounter For Screening Mammogram For Malignant Neoplasm OfBreast/Z12.31 Encounter For Screening Mammogram For Malignant Neoplasm OfBreast. Current study was evaluated with a Computer Aided Detection (CAD) system. COMPARISON:Comparison is made to exams dated: 07/30/2016 mammogram, 07/24/2015mammogram, 06/23/2014 mammogram, 04/30/2013 mammogram, and 04/02/2012 mammogram -[facility]. TECHNIQUE: Mammographic views were obtained using digital [...] is recommended.(10/18/2018) This exam was interpreted atDD [id number] for TEVIN Downs, SL 15. [facility].Ge Pedroza M.D. cm/penrad:10/17/2017 13:29:45 Overhead Cleaner Maintainer(s): RT Chris(R)(M), [facility] sent: BI-RADS 1/2 Mammogram BI-RADS: 2 Benign--R ead by: Rod Melara MDDictated Date/time: 10/17/17 13:29Electronically S igned by: Rdo Melara MD 10/17/1812:29FINAL REPORT [facility][O] Urine Dipstick (In Office)2017-09-29 11:00:00 * Test Item Value Reference Range Interpretation Comments Glucose (test code = Glucose) normal N LEUKOCYTES (test code = LEUKOCYTES) neg N NITRITE; Normal (test code = 80061-9) neg N UROBILINOGEN; Normal (test code = 81181-0) neg N PROTEIN (test code = 50239-9) trace pH (test code = pH) 7 URINE BLOOD (test code = 88427-6) trace SPECIFIC GRAVITY (test code = 2965-2) 1.010 KETONES; Normal (test code = 10329-8) neg N BILIRUBIN; Normal (test code = 25588-6) neg N COLOR URINE; Normal (test code = 5778-6) yellow N APPEARANCE; Normal (test code = 5767-9) clear N [facility]] CULTURE, URINE, [id number] 00:00:00* Test Item Value Reference Range Interpretation Comments CULTURE (test code = CULTURE) See Comment CULTURE, URINE, ROUTINE MICRO NUMBER: [id number] TEST STATUS: FINAL SPECIMEN SOURCE: NOT GIVEN SPECIMEN QUALITY: ADEQUATE RESULT: No Growth [facility]] URINALYSIS, COMPLETE W/REFLEX TO CULTURE 2017-09-14 16:08:00* [...] NEGATIVE N BILIRUBIN; Normal (test code = 49685-7) NEGATIVE NEGATIVE N KETONES; Normal (test code = 98545-6) NEGATIVE NEGATIVE N OCCULT BLOOD; Normal (test code = 70781-2) NEGATIVE NEGATIVE N PROTEIN; Normal (test code = 94129-4) NEGATIVE NEGATIVE N NITRITE (test code = NITRITE) NEGATIVE NEGATIVE N LEUKOCYTE ESTERASE (test code = LEUKOCYTE ESTERASE) 2+ NE GATIVE A WBC; Abnormal (test code = 6690-2) 40-60 < OR = 5 A RBC; Normal (test code = 789-8) 0-2 < OR = 2 N SQUAMOUS EPITHELIAL CELLS; Normal (test code = 96466-4) NONE SEEN < OR = 5 N BACTERIA; Abnormal (test code = 630-4) FEW NONE SEEN A HYALINE CAST; Normal (test code = 54072-9) NONE SEEN NONE SEEN N REFLEXIVE URINE CULTURE (test code = REFLEXIVE URINE C ULTURE) CULTURE INDICATED - RESULTS TO FOLLOW [facility]] CULTURE, URINE, [id number] 16:08:00* Test Item Value Reference Range Interpretation Comments CULTURE (test code = CULTURE) See Comment A CULTURE, URINE, ROUTINE MICRO NUMBER: [id number] TEST STATUS: FINAL SPECIMEN SOURCE: URINE SPECIMEN [...] cefdinir, cefpodoxime, cefprozil, cefuroxime, cephalexin and loracarbef. [facility][] LIPID PANEL WITH REFLEX TO DIRECT LDL 2017-08-24 09:46:00* Test Item Value Reference Range Interpretation Comments CHOLESTEROL, TOTAL; Normal (test code = 2093-3) 166 mg/dl <200 N HDL CHOLESTEROL; Below Low Threshold (test code = 2085-9) 45 mg/dl >50 TRIGLYCERIDES; Above High Threshold (test code = 2571-8) 155 mg/dl <150 LDL-CHOLESTEROL; Normal (test code = 52514-7) 95 {MG/DL GARFIELD} N Reference range: <100 Desirable range <100 mg/dL for primary prevention; <70 mg/dL for patients with CHD or diabetic patients with > or = 2 CHD risk factors. LDL-C is now calculated using the Samy-Jamison calculation, which is a validated novel method providing better accuracy than the Friedewald equation in the estimation of LDL-C. Samy SS et al. CALVIN. 2013;310(19): 4429-8850 (http ://education.[employer].Baitianshi/faq/ZTN625) CHOL/HDLC RATIO (test code = CHOL/HDLC RATIO) 3.7 {CALC} <5.0 N NON HDL CHOLESTEROL (test code = NON HDL CHOLESTEROL) 121 {MG/DL C AL} <130 N For patients with diabetes plus 1 major ASCVD risk factor, treating to a non-HDL-C goal of <100 mg/dL (LDL-C of <70 mg/dL) is considered a therapeutic option. [facility]] CMP [id number] 09:46:00* Test Item Value Reference Range Interpretation Comments GLUCOSE; Normal (test code = 1547-9) 96 mg/dl 65-99 N Fasting reference interval UREA NITROGEN (BUN) (test code = UREA NITROGEN (BUN)) 13 mg/dl 7-25 N CREATININE (test code = CREATININE) 0.45 mg/dl 0.60-0.93 For patients >49 years of age, the reference limitfor Creatinine is approximately 13% higher for peopleidentified as -Mozambican. eGFR NON- (test code = eGFR NON-SUNDAR N JORDANIAN) 101 {ML/MIN/1.7} > OR = 60 N [...] N BILIRUBIN, TOTAL; Normal (test code = 69726-1) 0.3 mg/dl 0.2-1.2 N ALKALINE PHSPHATASE (test code = ALKALINE PHSPHATASE) 82 u/l 33-130 N AST; Normal (test code = 1916-6) 12 u/l 10-35 N ALT; Normal (test code = 1742-6) 10 u/l 6-29 N [facility] CBC (INCLUDES DIFF/PLT)2017-08-24 09:46:00* Test Item Value Reference Range Interpretation Comments WHITE BLOOD CELL COUNT (test code = WHITE BLOOD CELL COUNT) 7.4 {Thousand/u} 3.8-10.8 N RED BLOOD CELL COUNT (test code = RED BLOOD CELL COUNT) 3.96 {Million/uL} 3.80-5.10 N HEMAGLOBIN; Normal (test code = 61333-8) 12.1 g/dl 11.7-15.5 N HEMATOCRIT; Normal (test code = 4544-3) 37.3 % 35.0-45.0 N MCV; Normal (test code = 787-2) 94.2 fL 80.0-100.0 N MCHC; Normal (test code = 07145-6) 32.4 g/dl 32.0-36.0 N RDW; Normal (test code = 788-0) 13.5 % 11.0-15.0 N PLATELET COUNT; Below Low Threshold (test code = 777-3) 127 {Thousand/u} 140-400 MPV; Above High Threshold (test code = 30939-5) 12.6 fL 7.5-12 .5 ABSOLUTE NEUTROPHILS (test code = ABSOLUTE NEUTROPHILS) 4647 {cells/uL} 4823-7285 N ABSOLUTE LYMPHOCYTES (test code = ABSOLUTE [...] % N MONOCYTES; Normal (test code = 48862-1) 10.5 % N EOSINOPHILS; Normal (test code = 69599-6) 0.4 % N BASOPHILS; Normal (test code = 45124-8) 0.8 % N COMMENT(S) (test code = COMMENT(S)) See Comment Review of peripheral smear confirmsautomated results. [facility]] CBC (INCLUDES DIFF/PLT)2017-04-14 13:20:01* Test Item Value Reference Range Interpretation Comments WBC (test code = WBC) 5.4 {K/CMM} 3.7-10.4 RBC (test code = RBC) 4.27 {M/CMM} 4.20-5.40 Hgb (test code = 68429-0) 13.0 g/dl 12.0-16.0 Hct (test code = [...] code = 3262 3-1) 10.7 fL 7.4-10.4 [facility]] [id number] 13:20:01* Test Item Value Reference Range Interpretation Comments Segmented Neutrophils (test code = 46851-5) 54.8 % 45.0-75.0 Monocytes # (test code = 54052-4) 0.5 {K/CMM} 0.0-0.8 Lymphocytes (test code = Lymphocytes) 33.6 % 20.0-40.0 Eosinophils # (test code = 48575-0) 0.1 {K/CMM} 0.0-0.5 Basophils # (test code = 37342-3) 0.1 {K/CMM} 0.0-0.2 Segs-Bands # (test code = 82446-7) 2.9 {K/CMM} 1.5-8.1 Lymphocytes # (test code = 67978-6) 1.8 {K/CMM} 1.0-5.5 Lymphocytes (test code = 46275-3) 33.6 % 20.0-40.0 [facility]] COMPLEMENT COMPONENT [id number] 15:47:01 * Test Item Value Reference Range Interpretation Comments C3 Complement (test code = C3 Complement) 141 mg/dl 88-201 [facility]] COMPLEMENT COMPONENT [id number] 15:47:01 * Test Item Value Reference Range Interpretation Comments C4 Complement (test code = C4 Complement) 27 mg/dl 16-47 [facility]] C-REACTIVE [id number] 15:47:01* Test Item Value Reference Range Interpretation Comments CRP (test code = CRP) <2.9 <=2.9 [facility]] CMP [id number] 15:47:01* Test Item Value Reference Range Interpretation [...] range values reflect the clinical guidelinesof the [place] [employer]. Creatinine Lvl (test code = Creatinine Lvl) 0.60 mg/dl 0.50-1.40 Blood Urea Nitrogen (test code = Blood Urea Nitrogen) 12 mg/dl 7-22 BUN/Creatinine Ratio (test code = BUN/Creatinine Ratio) 20 6-25 Total Protein (test code = 83631-4) 7.5 g/dl 6.4-8.4 Albumin Lvl (test code [...] u/l 39-136 Bili Total (test code = 46786-0) 0.4 mg/dl 0.2-1.3 eGFR (test code = [...] eGFR shouldbe multiplied by the estimated BMI. [facility]] CBC (INCLUDES DIFF/PLT)2017-03-27 15:47:01* Test Item Value Reference Range Interpretation Comments WBC (test code = WBC) 6.1 {K/CMM} 3.7-10.4 RBC (test code = RBC) 4.11 {M/CMM} 4.20-5.40 Hgb (test code = 61762-5) 12.8 g/dl 12.0-16.0 Hct (test code = [...] = Mean Platelet Volume) 11.3 fL 7.4-10.4 [facility]] [id number] 15:47:01* Test Item Value Reference Range Interpretation Comments Segmented Neutrophils (test code = 72445-8) 56.3 % 45.0-75.0 Monocytes # (test code = 49396-7) 0.5 {K/CMM} 0.0-0.8 Lymphocytes (test code = Lymphocytes) 34.0 % 20.0-40.0 Eosinophils # (test code = 21056-6) 0.1 {K/CMM} 0.0-0.5 Basophils (test code = 27673-2) 0.7 % 0.0-1.0 Segs-Bands # (test code = 50320-0) 3.4 {K/CMM} 1.5-8.1 Lymphocytes # (test code = 84669-0) 2.1 {K/CMM} 1.0-5.5 [facility]] URINALYSIS, [id number] 15:47:01* Test Item Value Reference Range Interpretation Comments UA Turbidity; Abnormal (test code = 30667-4) Marked Clear A UA Spec Grav (test code = 2965-2) 1.029 <=1.030 UA pH (test code = 2756-5) 5.0 5.0-8.0 UA Protein; Abnormal (test code = 67396-5) 30 mg/dl Negative A UA Glucose (test code = 2349-9) Negative Negative UA Ketones (test code = 26637-5) Negative Negative UA Bili (test code = 83456-3) Negative Negative UA Blood (test code = 798-9) Negative Negative UA Nitrite (test code = 52417-2) Negative Negative UA Leuk Est; Abnormal (test code = 96494-7) Large Negative A UA RBC; Above High Threshold (test code = 71738-2) 4 {/HPF} 0-2 UA WBC; Above High Threshold (test code = 00489-7) 11 {/HPF} 0-5 UA Bacteria (test code = 630-4) Occasional None Seen UA Mucus; Abnormal (test code = 68036-4) Many None Seen A UA Sq Epi (test code = 92783-4) Occasional Few Urine Calcium Oxalate Crystal (test code = 5774-5) Occasional Non e Seen UA Color (test code = 97853-4) Kimberli UROBILINOGEN (test code = 79946-9) <=1.0 0.1-1.0 [facility]] SED RATE BY MODIFIED [id number] 15:47:01* Test Item Value Reference Range Interpretation Comments Sedimentation Rate (test code = Sedimentation Rate) 20 {mm/hr} 0- 20 [facility]] DNA (DS) [id number] 15:47:01* Test Item Value Reference Range Interpretation Comments DNA Antibody (Double-stranded) (test code = DNA Antibo dy (Double-stranded)) Negative Negative [facility]] CBC (INCLUDES DIFF/PLT)2016-12-27 15:20:01* Test Item Value Reference Range Interpretation Comments WBC (test code = WBC) 5.8 {K/CMM} 3.7-10.4 RBC (test code = RBC) 3.95 {M/CMM} 4.20-5.40 Hgb (test code = 26344-8) 12.2 g/dl 12.0-16.0 Hct (test code = [...] = Mean Platelet Volume) 11.3 fL 7.4-10.4 [facility]] [id number] 15:20:01* Test Item Value Reference Range Interpretation Comments Segmented Neutrophils (test code = 15881-1) 51.9 % 45.0-75.0 Monocytes # (test code = 82495-0) 0.5 {K/CMM} 0.0-0.8 Lymphocytes (test code = Lymphocytes) 36.6 % 20.0-40.0 Eosinophils # (test code = 12232-3) 0.1 {K/CMM} 0.0-0.5 Basophils (test code = 30333-3) 0.8 % 0.0-1.0 Segs-Bands # (test code = 75544-6) 3.0 {K/CMM} 1.5-8.1 Lymphocytes # (test code = 90419-9) 2.1 {K/CMM} 1.0-5.5 [facility]] SED RATE BY MODIFIED [id number] 15:20:01* Test Item Value Reference Range Interpretation Comments Sedimentation Rate (test code = Sedimentation Rate) 30 {mm/hr} 0- 20 [facility]] CMP [id number] 15:20:01* Test Item Value Reference Range Interpretation [...] range values reflect the clinical guidelinesof the [place] [employer]. Creatinine Lvl (test code = Creatinine Lvl) 0.50 mg/dl 0.50-1.40 Blood Urea Nitrogen (test code = Blood Urea Nitrogen) 12 mg/dl 7-22 BUN/Creatinine Ratio (test code = BUN/Creatinine Ratio) 24 6-25 Total Protein (test code = 87152-1) 7.1 g/dl 6.4-8.4 Albumin Lvl (test code = 1751-7) 3.7 g/dl 3.5-5.0 Globulin (test code = Globulin) 3.4 g/dl 2.7-4.2 A/G Ratio (test code = A/G Ratio) 1.1 0.7-1.6 Calcium Level Total (test code = Calcium Level Total) 9.7 mg/dl 8.5-10.5 ALT (test code = 1742-6) 18 u/l 0-65 AST (test code = 1916-6) 17 u/l 0-37 Bili Total (test code = 43834-0) 0.2 mg/dl 0.2-1.3 Alk Phos (test code [...] eGFR shouldbe multiplied by the estimated BMI. [facility]] C-REACTIVE [id number] 15:20:01* Test Item Value Reference Range Interpretation Comments CRP (test code = CRP) <2.9 <=2.9 [facility] (Diabetic[facility]2016-07-21 05:00:00* Test Item Value Reference Range Interpretation Comments Negative Diabetic Eye Screening (test code = Negative Diabetic Eye Screening) 21Jul2016 [facility]
--- NOTE | 2020-01-24 18:50 | NUR ---
Report called to KEHINDE Hanson
[2020-01-24 20:00] VITALS: BP 170/56
[2020-01-24 20:15] VITALS: BP 170/56
[2020-01-25] VITALS: BP 116/59
--- NOTE | 2020-01-25 01:58 | NUR ---
Gildardo from lab called to say he could not process cardiac enzymes because it says some code and that the nurse needs to fix. I explained to him that there is an active order in the computer for this lab and that it needs to be processed. I do not know what you are speaking of and he continued to say it needs to be fixed on your end. I contacted the Charge Nurse Mercy and explained what was going on and if what he is saying is correct. At which time a call was made to Gildardo notifying him that there is an active order and it needs to be processed and if there is an issue that it is something that should be fixed in the lab.
[2020-01-25 02:12] LABS: CREATINE KINASE 46 IU/L (29-168)
[2020-01-25 04:00] VITALS: BP 121/60
[2020-01-25 06:31] LABS: BASOPHILS % 0.7 % (0.0-1.0); EOSINOPHILS # (AUTO) 0.1 (0.0-0.4); EOSINOPHILS % 1.4 % (0.0-6.0); HEMATOCRIT 35.1 % (34.2-44.1); HEMOGLOBIN 11.4 g/dL (12.0-16.0); LYMPHOCYTES # (AUTO) 1.9 (1.0-3.2); MEAN CORPUSCULAR HEMOGLOBIN 30.8 pg (28-32); MEAN CORPUSCULAR HGB CONC 32.5 g/dL (31-35); MEAN CORPUSCULAR VOLUME 94.9 fL (81-99); MONOCYTES # (AUTO) 0.4 (0.2-0.8); MONOCYTES % 8.1 % (4.4-11.3); NEUTROPHILS % 45.6 % (38.7-80.0); PLATELET COUNT 108 x10e3/uL (140-360)
[2020-01-25 06:45] LABS: ANION GAP 12.9 mmol/L (8-16); BLOOD UREA NITROGEN 8 mg/dL (7-26); BUN/CREATININE RATIO 14 (6-25); CALCIUM 8.8 mg/dL (8.4-10.2); CARBON DIOXIDE 27 mmol/L (22-29); CHLORIDE 108 mmol/L (98-107); CREATININE, SERUM 0.58 mg/dL (0.57-1.11); EST GLOMERULAR FILTRATION RATE > 60 ML/MIN (60-); GLUCOSE 88 mg/dL (74-118); HDL CHOLESTEROL 38 MG/DL (40-60); POTASSIUM 3.9 mmol/L (3.5-5.1); SODIUM 144 mmol/L (136-145); TRIGLYCERIDES 85 MG/DL (0-149)
--- NOTE | 2020-01-25 07:00 | NUR ---
BEDSIDE SHIFT REPORT RECEIVED FROM THE TAX AGENT RN. PT AAOX4. EDUCATED PT ABOUT FALL PRECAUTIONS. CALL LIGHT WITH IN EASY REACH. INSTRUCTED PT TO USE CALL LIGHT FOR ALL THE NEEDS. PT VERBALIZED UNDERSTANDING. BED IS LOW AND LOCKED. SIDE RAILS X2. PT DENIES NEEDS AT THIS TIME.
[2020-01-25 07:52] VITALS: BP 123/51
[2020-01-25 08:21] VITALS: BP 123/51
[2020-01-25 08:25] LABS: CHOL/HDL RATIO 3.7 (3.0-3.6); CHOLESTEROL 142 MD/DL (0-199); LDL CHOLESTEROL 87 MG/DL (60-130)
--- NOTE | 2020-01-25 09:57 | NUR ---
H&P cc: chest discomfort HPI: 74yoF, PCP ---, developed epigastric discomfort and chest discomfort. Most pain in epigastric region. Last EGD years ago. No SOB/dizziness. PMH: GERD, HLD, Dementia, mood d/o, brain aneurysm s/p surgical mgmt in 06/2017 PShx; brain aneurysm Allergies; see emr Fh/SH: ; no cigs meds; see MAR ROS; no f/c/s/N/V/D/ECHAVARRIA/skin rash/confusion/dizziness/vision changes/leg pain v/s revd PE tired appearing anicteric ns1s2 mod bs soft nd; epigastrium tenderness skin dry n. affect leg no edema a&ox3; carmona labs/meds A/P: Atypical CP- Tn negative GERD- on ppi HLD- cont statin Mood d/o- cont SSRI Dementia- aricept Prop: scd; ppi dispo; f/u JAYDE FREDERICK MD PHD.
[2020-01-25] MEDS ORDERED: TUMS ULTRA400 MG PO (09:59)
[2020-01-25] MEDS ORDERED: PANTOPRAZOLE SO40 MG PO (09:59)
[2020-01-25] MEDS ORDERED: SUCRALFATE1 GM PO (09:59)
[2020-01-25] MEDS ORDERED: ONDANSETRON HCL INJ 2MG/ML 2ML 2 MG/ML VIAL IV PRN (10:00)
[2020-01-25] MEDS ORDERED: ZOLPIDEM TARTRATE 5 MG TAB PO PRN (10:00)
[2020-01-25] MEDS ORDERED: DOCUSATE SODIUM 100 MG CAP PO PRN (10:00)
[2020-01-25] MEDS ORDERED: PANTOPRAZOLE SOD 40 MG TABEC PO SCH ×2 (10:00→10:30)
[2020-01-25] MEDS ORDERED: ACETAMINOPHEN 325 MG TAB PO PRN (10:00)
[2020-01-25 10:13] LABS: CREATINE KINASE 45 IU/L (29-168)
[2020-01-25] MEDS ORDERED: CALCIUM CARBONATE 500 MG CHEWABLE TABS PO PRN (10:30)
[2020-01-25] MEDS ORDERED: SUCRALFATE 1 GM TAB PO SCH (11:30)
[2020-01-25 13:06] VITALS: BP 135/58
--- NOTE | 2020-01-25 14:00 | NUR ---
PT HR SINUS HAILY 50-60 FOR THE DAY. REPORTED TO DR. FREDERICK.
--- NOTE | 2020-01-25 14:34 | NUR ---
PAGED DR. FREDERICK REGARDING PT D/C. SERGIOAY TO D/C PER DR. FREDERICK.
[2020-01-25 15:00] VITALS: BP 130/58
--- NOTE | 2020-01-25 15:17 | NUR ---
PT DISCHARGED HOME SAFELY WITH FAMILY MEMBER. PRESCRIPTION GIVEN. PT ESCORTED TO THE FRONT ENTRANCE BY THE TECH. TELE AND IV REMOVED. TIP INTACT. DRESSING APPLIED. PT DENIED FURTHER NEEDS.
[2020-01-25] MEDS ORDERED: ATORVASTATIN 20 MG TAB PO SCH (21:00)
[2020-01-25] MEDS ORDERED: GABAPENTIN 300 MG CAP PO SCH (21:00)
[2020-01-25] MEDS ORDERED: DONEPEZIL HCL 5 MG TAB PO SCH (21:00)
--- NOTE | 2020-01-26 06:21 | NUR ---
D/C summary Principal Dx: Atypical CP- Tn negative GERD- on ppi Secondary Dx: HLD- cont statin Mood d/o- cont SSRI Dementia- aricept Prop: scd; ppi dispo; f/u Repeat Tn negative; symptoms improved with PPI/sucralfate d/c home stable f/u pcp 2 days and GI 1 week d/c>35mins JAYDE FREDERICK MD PHD.
[2020-01-26] MEDS ORDERED: CITALOPRAM HYDROBROMIDE 20 MG TAB PO SCH (09:00)
== END 2020-01-25 15:17 | disposition home or self-care (01) ==
LOC: FSED 15:53 → ERHOLD 17:23 → MED/SURG3 20:25
PROVIDERS: ADMIT Internal Medicine; ATTEND Internal Medicine
DX: R07.89 Other chest pain (principal); K21.9 Gastro-esophageal reflux disease without esophagitis; E78.5 Hyperlipidemia, unspecified; F39 Unspecified mood [affective] disorder; F03.90 Unspecified dementia, unspecified severity, without behavioral disturbance, psychotic disturbance, mood disturbance, and anxiety; Z86.73 Personal history of transient ischemic attack (TIA), and cerebral infarction without residual deficits; Z88.0 Allergy status to penicillin; Z88.8 Allergy status to other drugs, medicaments and biological substances; Z20.828 Contact with and (suspected) exposure to other viral communicable diseases
CPT/HCPCS: 36415; 71046; 80048 ×2; 80061; 80076; 81003; 82550; 82553 ×2; 84484 ×2; 85025 ×2; 85379; 93005; 97116; 97161; 99284; G0378 ×2; S0164; U0002

== ENCOUNTER → 2020-03-11 | Outpatient (CLI) | payer MEDICARE ==
[~2020-03-11] MED LIST changes: +PANTOPRAZOLE SO40 MG PO; +SUCRALFATE1 GM PO; +TUMS ULTRA400 MG PO
== END ==
LOC: US 12:34
PROVIDERS: ATTEND Urology
DX: N28.1 Cyst of kidney, acquired (principal)
CPT/HCPCS: 76770

== ENCOUNTER 2021-02-11 19:25 | Observation (INO) | payer MEDICARE ==
[~2021-02-11] VITALS: Ht 154.9 cm; Wt 67.1 kg
[2021-02-11] MEDS ORDERED: ASPIRIN 81 MG CHEW TAB PO ONE (21:00)
[2021-02-11] MEDS ORDERED: SODIUM CHLORIDE 0.9% 50ML 50 ML ONE (21:12)
[2021-02-11] MEDS ORDERED: IOPAMIDOL 370 MG/ML 200 ML INFUS..BTL INJ ONE (21:13)
[2021-02-11] MEDS ORDERED: ASPIRIN 81 MG CHEW TAB ONE (23:28)
[2021-02-12] VITALS (7 sets, daily range): BP systolic 124–152; BP diastolic 53–59
[2021-02-12] MEDS ORDERED: TUMS ULTRA400 MG PO (00:19)
[2021-02-12] MEDS ORDERED: CALTRATE 600 W1 EACH PO (00:19)
[2021-02-12 05:32] LABS: CREATINE KINASE MB 0.6 ng/mL (0-5.0)
[2021-02-12] MEDS: ASPIRIN 325 MG TAB PO SCH ×2 (09:00→09:10)
[2021-02-12 13:44] LABS: CREATINE KINASE MB 0.7 ng/mL (0-5.0)
[2021-02-12] MEDS ORDERED: PANTOPRAZOLE SOD 40 MG TABEC PO SCH (14:00)
[2021-02-12] MEDS ORDERED: ATORVASTATIN 20 MG TAB PO SCH (21:00)
== END 2021-02-12 15:28 | disposition home or self-care (01) ==
LOC: FSED 19:49 → ERHOLD 20:49 → MED/SURG 23:50
PROVIDERS: ADMIT Internal Medicine; ATTEND Internal Medicine
DX: R07.9 Chest pain, unspecified (principal); M50.30 Other cervical disc degeneration, unspecified cervical region; R00.1 Bradycardia, unspecified; Z88.1 Allergy status to other antibiotic agents; Z88.5 Allergy status to narcotic agent; Z88.0 Allergy status to penicillin; Z20.822 Contact with and (suspected) exposure to COVID-19; E78.5 Hyperlipidemia, unspecified; D69.3 Immune thrombocytopenic purpura; M19.90 Unspecified osteoarthritis, unspecified site; J98.11 Atelectasis
CPT/HCPCS: 36415; 71045; 71260; 80053; 81003; 82550; 82553 ×2; 83880; 84484 ×2; 85025; 93005; 94799; 99284; G0378 ×2; Q9967; S0164; U0002

== ENCOUNTER 2021-09-13 09:45 | Emergency (ER) | payer MEDICARE ==
[~2021-09-13] VITALS: Ht 154.9 cm; Wt 67.1 kg
[~2021-09-13 09:45] MED LIST changes: +CALTRATE 600 W1 EACH PO
[2021-09-13] MEDS ORDERED: HYDROXYZINE HCL25 MG PO (10:29)
== END 2021-09-13 10:38 | disposition home or self-care (01) ==
LOC: FSED 09:48
DX: L29.9 Pruritus, unspecified (principal); E78.5 Hyperlipidemia, unspecified; K21.9 Gastro-esophageal reflux disease without esophagitis
CPT/HCPCS: 99282

== ENCOUNTER 2021-12-04 22:17 | Emergency (ER) | payer MEDICARE ==
[~2021-12-04] VITALS: Ht 154.9 cm; Wt 67.1 kg
[~2021-12-04 22:17] MED LIST changes: +HYDROXYZINE HCL25 MG PO
== END 2021-12-05 00:30 | disposition home or self-care (01) ==
LOC: FSED 22:47
DX: R20.0 Anesthesia of skin (principal); M26.69 Other specified disorders of temporomandibular joint; E78.5 Hyperlipidemia, unspecified; K21.9 Gastro-esophageal reflux disease without esophagitis; F41.9 Anxiety disorder, unspecified; D69.3 Immune thrombocytopenic purpura
CPT/HCPCS: 70450; 80053; 82553; 84484; 85025; 93005; 99283

== ENCOUNTER 2022-03-25 17:50 | Emergency (ER) | payer MEDICARE ==
[~2022-03-25] VITALS: Ht 154.9 cm; Wt 64.5 kg
[2022-03-25] MEDS ORDERED: ONDANSETRON ODT4 MG PO (18:06)
[2022-03-25] MEDS ORDERED: VITAMIN D350 MCG (18:06)
[2022-03-25] MEDS ORDERED: VITAMIN B-122000 MCG (18:06)
[2022-03-25] MEDS ORDERED: CALTRATE 600 W1 EACH (18:06)
[2022-03-25] MEDS ORDERED: FLEET ENEMA133 ML PR (18:31)
== END 2022-03-25 18:37 | disposition home or self-care (01) ==
LOC: FSED 17:55
DX: K56.41 Fecal impaction (principal); E78.5 Hyperlipidemia, unspecified; K21.9 Gastro-esophageal reflux disease without esophagitis; F41.9 Anxiety disorder, unspecified
CPT/HCPCS: 74176; 99283

== ENCOUNTER → 2022-04-20 | Outpatient (CLI) | payer MEDICARE ==
[~2022-04-20] MED LIST changes: +CALTRATE 600 W1 EACH; +FLEET ENEMA133 ML PR; +IOPAMIDOL 370 MG/ML 100 ML INFUS..BTL INJ ONE; +ONDANSETRON ODT4 MG PO; +SODIUM CHLORIDE 0.9% 250ML 250 ML ONE; +VITAMIN B-122000 MCG; +VITAMIN D350 MCG
[2022-04-20 09:51] LABS: CREATININE, SERUM 0.66 mg/dL (0.57-1.11)
== END ==
LOC: CT 07:30
PROVIDERS: ATTEND Urology
DX: R31.21 Asymptomatic microscopic hematuria (principal)
CPT/HCPCS: 36415; 74178; 82565; 84520; J7050; Q9967

== ENCOUNTER 2022-08-07 12:12 | Observation (INO) | payer MEDICARE ==
[~2022-08-07] VITALS: Ht 154.9 cm; Wt 64.0 kg
[~2022-08-07 12:12] MED LIST changes: -IOPAMIDOL 370 MG/ML 100 ML INFUS..BTL INJ ONE; -SODIUM CHLORIDE 0.9% 250ML 250 ML ONE
[2022-08-07] MEDS ORDERED: SODIUM CHLORIDE 0.9% 1000ML 1,000 ML IV ONE (12:45)
[2022-08-07] MEDS ORDERED: SODIUM CHLORIDE 0.9% 1000ML 1,000 ML ONE (12:53)
[2022-08-07] MEDS ORDERED: LEVOFLOXACIN 500MG/D5W 100ML 100 ML IV SCH (14:45)
[2022-08-07] MEDS: METRONIDAZOLE 500MG/NS 100ML 100 ML IV SCH ×2 (15:08→21:56)
[2022-08-07] MEDS ORDERED: ACETAMINOPHEN 325 MG TAB PO ONE (15:45)
[2022-08-07 16:16] VITALS: BP 122/57; PULSE 72; RESP 16; TEMP 97.9; O2SAT 100
[2022-08-07] MEDS ORDERED: SIMETHICONE 80 MG CHEW PO PRN (17:30)
[2022-08-07] MEDS ORDERED: MELATONIN 3 MG TAB PO PRN (17:30)
[2022-08-07] MEDS ORDERED: ACETAMINOPHEN 325 MG TAB PO PRN (17:30)
[2022-08-07] MEDS ORDERED: ONDANSETRON HCL INJ 2MG/ML 2ML 2 MG/ML VIAL IV PRN (17:30)
[2022-08-07 17:46] VITALS: BP 122/57; PULSE 72; RESP 16; TEMP 97.9; O2SAT 100
[2022-08-07] MEDS: BISACODYL 5 MG TAB EC PO SCH (18:41)
[2022-08-07] MEDS: MAGNESIUM HYDROXIDE 30 ML UDC PO SCH (18:41)
[2022-08-07] MEDS: SODIUM CHLORIDE 0.9% 1000ML 1,000 ML IV SCH ×2 (18:42→23:05)
[2022-08-07 19:15] VITALS: BP 143/57; PULSE 66; RESP 20; TEMP 97.6; TEMP 97.7; O2SAT 100
[2022-08-07] MEDS ORDERED: BISACODYL 5 MG TAB EC PO ONE ×2 (20:00→21:00)
[2022-08-07] MEDS ORDERED: CITRATE OF MAGNESIA 300ML BOTTLE PO ONE ×2 (20:00→22:00)
[2022-08-07] MEDS: DOCUSATE SODIUM 100 MG CAP PO SCH (20:51)
[2022-08-07] MEDS ORDERED: BISACODYL 10 MG SUPP PR ONE (21:00)
[2022-08-07] MEDS: SENNOSIDES 8.6 MG TAB PO SCH (21:56)
[2022-08-08] VITALS: BP 125/45; PULSE 70; RESP 20; TEMP 98; O2SAT 99
[2022-08-08 04:00] VITALS: BP 110/59; PULSE 64; RESP 20; TEMP 98.6; O2SAT 98
[2022-08-08] MEDS: METRONIDAZOLE 500MG/NS 100ML 100 ML IV SCH (05:10)
[2022-08-08] MEDS: SODIUM CHLORIDE 0.9% 1000ML 1,000 ML IV SCH (05:10)
[2022-08-08 07:49] LABS: BASOPHILS % 0.4 % (0.0-1.0); HEMATOCRIT 34.8 % (34.2-44.1); HEMOGLOBIN 11.3 g/dL (12.0-16.0); LYMPHOCYTES # (AUTO) 1.6 (1.0-3.2); LYMPHOCYTES % 15.1 % (18.0-39.1); MEAN CORPUSCULAR HGB CONC 32.5 g/dL (31-35); MEAN CORPUSCULAR VOLUME 95.6 fL (81-99); MONOCYTES # (AUTO) 0.8 (0.2-0.8); MONOCYTES % 7.4 % (4.4-11.3); NEUTROPHILS # (AUTO) 8.1 (2.1-6.9); NEUTROPHILS % 76.8 % (38.7-80.0); PLATELET COUNT 107 x10e3/uL (140-360); RED BLOOD COUNT 3.64 x10e6/uL (3.6-5.1); RED CELL DISTRIBUTION WIDTH 13.8 % (11.7-14.4)
[2022-08-08 08:24] LABS: ANION GAP 10.5 mmol/L (8-16); CALCIUM 8.6 mg/dL (8.4-10.2); CREATININE, SERUM 0.58 mg/dL (0.57-1.11); POTASSIUM 3.5 mmol/L (3.5-5.1)
[2022-08-08 08:26] VITALS: BP 131/69; PULSE 63; RESP 18; TEMP 97.7; O2SAT 99
[2022-08-08 08:52] VITALS: BP 131/69; PULSE 63; RESP 18; TEMP 97.7; O2SAT 99
[2022-08-08] MEDS ORDERED: LUBIPROSTONE 24 MCG CAP PO SCH (09:00)
[2022-08-08] MEDS: MAGNESIUM HYDROXIDE 30 ML UDC PO SCH (09:19)
[2022-08-08] MEDS: BISACODYL 5 MG TAB EC PO SCH (09:19)
[2022-08-08] MEDS: SENNOSIDES 8.6 MG TAB PO SCH (09:19)
[2022-08-08] MEDS: DOCUSATE SODIUM 100 MG CAP PO SCH (09:19)
[2022-08-08 12:35] VITALS: BP 115/56; PULSE 62; RESP 18; TEMP 97.7; O2SAT 100
[2022-08-08] MEDS ORDERED: AMITIZA24 MCG PO (14:32)
[2022-08-08] MEDS ORDERED: BISACODYL5 MG PO (14:32)
[2022-08-08] MEDS ORDERED: SENOKOT8.6 MG PO (14:32)
[2022-08-08] MEDS ORDERED: Docusate Sodium PO (14:32)
[2022-08-08] MEDS ORDERED: METRONIDAZOLE500 MG PO (14:32)
[2022-08-08] MEDS ORDERED: MILK OF MA400 MG/5 M PO (14:32)
[2022-08-08] MEDS ORDERED: ONDANSETRON HCL 4 MG ORAL DISINTEGRATING TAB PO PRN (16:15)
[2022-08-08] MEDS ORDERED: PANTOPRAZOLE SOD 40 MG TABEC PO SCH (16:30)
[2022-08-08] MEDS ORDERED: METRONIDAZOLE 500 MG TAB PO SCH (16:30)
[2022-08-08 16:39] VITALS: BP 123/51; PULSE 62; RESP 19; TEMP 98.2; O2SAT 100
== END 2022-08-08 16:55 | disposition home or self-care (01) ==
LOC: FSED 12:16 → ERHOLD 14:44 → MED/SURG3 15:49
PROVIDERS: ADMIT Internal Medicine; ATTEND Internal Medicine
DX: K52.89 Other specified noninfective gastroenteritis and colitis (principal); K59.09 Other constipation; K21.9 Gastro-esophageal reflux disease without esophagitis; R73.03 Prediabetes; E78.5 Hyperlipidemia, unspecified; M19.91 Primary osteoarthritis, unspecified site; Z11.52 Encounter for screening for COVID-19; Z86.010 Personal history of colon polyps; Z87.891 Personal history of nicotine dependence; Z79.899 Other long term (current) drug therapy
CPT/HCPCS: 36415; 74176; 80048; 80053; 81003; 83036; 84443; 85025; 99284; G0378; J2405; J7030

== ENCOUNTER 2023-08-26 10:24 | Emergency (ER) | payer MEDICARE ==
[~2023-08-26] VITALS: Ht 154.9 cm; Wt 61.3 kg
[~2023-08-26 10:24] MED LIST changes: +AMITIZA24 MCG PO; +BISACODYL5 MG PO; +CORTISPORIN-TC10 M1 RIGHT EAR; +Docusate Sodium PO; +METRONIDAZOLE500 MG PO; +MILK OF MA400 MG/5 M PO; +NASAL SPRAY EXT30 ML INH; +SENOKOT8.6 MG PO; +XIIDRA1 EACH OU
[2023-08-26] MEDS ORDERED: SUCRALFATE1 GM PO (10:47)
[2023-08-26] MEDS ORDERED: TYLENOL325 MG PO (10:47)
[2023-08-26] MEDS ORDERED: VOLTAREN ARTHRI20 GM (10:47)
[2023-08-26] MEDS ORDERED: SYSTANE 0.3-0.1 EACH (10:47)
[2023-08-26] MEDS: CEFTRIAXONE 1 GM VIAL IM ONE (11:01)
[2023-08-26] MEDS ORDERED: LIDOCAINE HCL 1% LOCAL INJ 20 ML VIAL ONE (11:03)
[2023-08-26] MEDS ORDERED: LEVOFLOXACIN250 MG PO (11:08)
[2023-08-26 11:17] VITALS: PULSE 73; RESP 16; TEMP 98.8; O2SAT 97
== END 2023-08-26 11:20 | disposition home or self-care (01) ==
LOC: FSED 10:29
DX: N39.0 Urinary tract infection, site not specified (principal); K29.70 Gastritis, unspecified, without bleeding; K21.9 Gastro-esophageal reflux disease without esophagitis; Z88.0 Allergy status to penicillin; Z88.5 Allergy status to narcotic agent; Z88.8 Allergy status to other drugs, medicaments and biological substances; Z59.6 Low income; Z79.1 Long term (current) use of non-steroidal anti-inflammatories (NSAID)
CPT/HCPCS: 81003; 96372; 99283; J0696; J2001

== ENCOUNTER → 2023-10-04 | Outpatient (REF) | payer MEDICARE ==
[~2023-10-04] MED LIST changes: +LEVOFLOXACIN250 MG PO; +SYSTANE 0.3-0.1 EACH; +TYLENOL325 MG PO; +VOLTAREN ARTHRI20 GM
== END ==
LOC: US 14:02
PROVIDERS: ATTEND Urology
DX: R31.21 Asymptomatic microscopic hematuria (principal); N39.0 Urinary tract infection, site not specified; N28.1 Cyst of kidney, acquired
CPT/HCPCS: 76770; 76857

== ENCOUNTER → 2023-11-24 | Outpatient (REF) | payer MEDICARE | LOC: US 07:47 | PROVIDERS: ATTEND Nurse Practitioner | DX: R10.84 Generalized abdominal pain (principal) | CPT/HCPCS: 76700; 76856 ==

== ENCOUNTER 2024-08-05 16:36 | Emergency (ER) | payer MEDICARE ==
[~2024-08-05] VITALS: Ht 154.9 cm; Wt 63.2 kg
[2024-08-05 16:40] VITALS: PULSE 80; RESP 20; TEMP 98.5; O2SAT 98
[2024-08-05] MEDS ORDERED: CIPRO500 MG PO (16:55)
[2024-08-05] MEDS ORDERED: PYRIDIUM100 MG PO (16:55)
== END 2024-08-05 17:00 | disposition home or self-care (01) ==
LOC: FSED 16:50
DX: R30.0 Dysuria (principal); N39.0 Urinary tract infection, site not specified; R35.0 Frequency of micturition; E78.5 Hyperlipidemia, unspecified; K21.9 Gastro-esophageal reflux disease without esophagitis; M19.09 Primary osteoarthritis, other specified site; F41.9 Anxiety disorder, unspecified; F32.A Depression, unspecified; Z86.79 Personal history of other diseases of the circulatory system
CPT/HCPCS: 81003; 99284